=== PATIENT | male | born 1970 | race Caucasian/White ===

== ENCOUNTER 2021-06-02 01:04 | Inpatient (IN) | payer BC, SELFPAY ==
[2021-06-02] VITALS (21 sets, daily range): BP systolic 103–140; BP diastolic 47–82; PULSE 97–155; RESP 12–21; TEMP 36.3–37.3; O2SAT 94–98; BMI 44.9
--- NOTE | ~2021-06-02 | XR_ITS ---
XR chest 1V portable DATE: 06/02/2021 01:37 INDICATION: Tachycardia TECHNIQUE: Portable upright AP chest on at 0131 hours COMPARISON: 10/31/2012 two-view chest FINDINGS: No pulmonary infiltrate or consolidation, pleural effusion or pulmonary vascular congestion or pneumothorax is evident. Heart size appears within normal limits. IMPRESSION: No active disease Reviewed, dictated and finalized at location A. IMPRESSION: No active disease
--- NOTE | 2021-06-02 01:13 | ECG_ITS ---
Measurements Intervals [place] Rate: 148 P: FL: 0 QRS: -37 QRSD: 94 T: 54 QT: 254 QTc: 399 Interpretive Statements SINUS TACHYCARDIA LEFT AXIS DEVIATION POOR R WAVE PROGRESSION, ANTERIOR LEADS CONSIDER INFERIOR INFARCT, AGE INDETERMINATE BASELINE ARTIFACT- II, III, AVF, V3-V6 ABNORMAL ECG Electronically Signed On 06-02-2021 7:09:23 CDT by Brent Larsen D.O.
--- NOTE | 2021-06-02 01:25 | ED.MALEGU ---
HPI - Male Genitourinary History of Present Illness HPI Narrative: 50 yo male w/ h/o htn presents to the ED for hematuria. He reports that he has been urinating every 15 minutes. Later in the day he started seeing blood in his urine. On arrival here found be very tachycardic. No fever, chills, chest pain, abdominal pain, dysuria. Related Data Home Medications Medication Instructions Recorded Confirmed cyclobenzaprine 10 mg tablet 10 mg PO TID 09/11/19 06/02/21 meloxicam 15 mg tablet 15 mg PO DAILY 09/11/19 06/02/21 lisinopril 20 mg DAILY 06/02/21 06/02/21 Allergies Allergy/AdvReac Type Severity Reaction Status Date / Time No Known Allergies Allergy Unknown Verified 06/02/21 03:30 Review of Systems Review of Systems: All systems reviewed & are unremarkable except as noted in HPI and below Musculoskeletal: Musculoskeletal: Denies back pain PMFSH Surgical History Surgical History H/O adenoidectomy Hx of tonsillectomy Family History Family History Father Cerebrovascular accident Social History Social History Smoking status: Never smoker Second hand tobacco smoke exposure: No Alcohol intake: current Drinks per week: 3 Substance use: never Spiritual care concerns: No Exam Const: General: no acute distress and alert Orientation/consciousness: patient oriented x3 HENMT: Head: normal to inspection Neck: Neck: normal visual inspection and no lymphadenopathy Chest: Chest palpation & inspection: no tenderness Resp: Effort & Inspection: normal respiratory effort Auscultation: clear to auscultation bilaterally, no rales, no rhonchi and no wheezes Cardio: Jugular venous distension: no JVD Rate: tachycardic Rhythm: regular rhythm Heart sounds: no murmurs GI: Inspection: non-distended GI Palp: Yes Soft to palpation and No Tenderness to palpation present (GI) Skin: General skin exam: normal color Neuro: General: patient oriented x3 and moves all extremities Speech: normal speech Extrem: General: no edema Psych: Appearance: well kempt Affect: normal affect Course Vital Signs Vital signs: Vital Signs Temperature 37.3 C 06/02/21 01:07 Pulse Rate 150 H 06/02/21 01:07 Respiratory Rate 20 06/02/21 01:07 Blood Pressure 130/63 06/02/21 01:07 Pulse Oximetry 96 06/02/21 01:07 Temperature 36.3 C L 06/02/21 03:50 Pulse Rate 104 H 06/02/21 04:00 Respiratory Rate 20 06/02/21 03:50 Blood Pressure 132/61 06/02/21 03:50 Pulse Oximetry 98 06/02/21 03:50 MDM - Male Genitourinary MDM Narrative Medical decision making narrative: He meets sepsis criteria. UA consistent with infection. EKG shows sinus tachycardia. Differential Diagnosis Differential diagnosis: Likely urinary tract infection Medical Records Attestation: I reviewed the patient's medical records. Lab Data Attestation: I reviewed the patient's lab results. Result diagrams: 06/02/21 01:23 06/02/21 01:23 Labs: Lab Results 06/02/21 06/02/21 06/02/21 Range/Units 01:23 01:23 01:23 WBC 20.7 H (4.5-10.0) K/mm3 RBC 5.31 (4.6-6.20) M/mm3 Hgb 15.9 (14.0-18.0) g/dL Hct 46.1 (42.0-52.0) % MCV 86.8 (80-100) fl MCH 29.9 (26-34) pg MCHC 34.5 (32-36) g/dl RDW 12.9 (11.5-14.5) % Plt Count 226 (150-375) k/mm3 MPV 11.7 H (7.4-10.4) fl Immature Gran % (Auto) 0.5 (0-0.5) % Neut % (Auto) 83.0 H (45.5-73.1) % Lymph % (Auto) 8.6 L (18.3-44.2) % [place] % (Auto) 7.1 (2.6-8.5) % Eos % (Auto) 0.4 (0-4.4) % Baso % (Auto) 0.4 (0.2-1.2) % Lymph # (Auto) 1.77 (0.9-3.2) K/mm3 [place] # (Auto) 1.5 H (0.1-0.6) K/mm3 Eos # (Auto) 0.1 (0-0.3) K/mm3 Baso # (Auto) 0.1 (0.0-0.1) K/mm3 Abs Immat Gran (auto) 0.10 H (0.00-0.031) K/mm3
[2021-06-02 01:40] LABS: Basophils Absolute Auto 0.1 K/mm3 (0.0-0.1); Basophils Percent Auto 0.4 % (0.2-1.2); Eosinophils Absolute Auto 0.1 K/mm3 (0-0.3); Eosinophils Percent Auto 0.4 % (0-4.4); Hematocrit 46.1 % (42.0-52.0); Hemoglobin 15.9 g/dL (14.0-18.0); Immature Granulocyte Percent A 0.5 % (0-0.5); Lymphocytes Absolute Auto 1.77 K/mm3 (0.9-3.2); Lymphocytes Percent Auto 8.6 % (18.3-44.2); Mean Corpuscular HGB Conc 34.5 g/dl (32-36); Mean Corpuscular Hemoglobin 29.9 pg (26-34); Mean Corpuscular Volume 86.8 fl (80-100); Mean Platelet Volume 11.7 fl (7.4-10.4); Monocytes Absolute Auto 1.5 K/mm3 (0.1-0.6); Monocytes Percent Auto 7.1 % (2.6-8.5); Neutrophils Absolute Auto 17.2 K/mm3 (1.3-6.7); Platelet Count Result 226 k/mm3 (150-375); Red Blood Count 5.31 M/mm3 (4.6-6.20); Red Cell Distribution Width 12.9 % (11.5-14.5); White Blood Count 20.7 K/mm3 (4.5-10.0)
[2021-06-02] MEDS: SODIUM CHLORIDE 0.9% IV 1,000 ML 999 ML IV CONT ×2 (01:42→02:36)
[2021-06-02] MEDS: dilTIAZem HCl INJ 25 MG/5 ML VIAL 10 MG IV PUSH (01:42)
[2021-06-02] MEDS: ASPIRIN 81 MG CHEWABLE TABLET 324 MG PO (01:42)
[2021-06-02 01:44] LABS: Prothrombin Time 12.6 Seconds (11.1-14.7)
[2021-06-02 01:45] LABS: Partial Thromboplastin Time 24.7 SECONDS (22.3-36.8)
[2021-06-02 01:55] LABS: Lactic Acid Reflex 2.6 mmol/L (0.7-2.1)
[2021-06-02 01:56] LABS: Add Urine Microscopic? YES; Appearance Urine Cloudy (Clear); Bacteria Urine 2+ /hpf; Bilirubin Urine Negative (Negative); Blood Urine 3+ (Negative); Color Urine Yellow (Yellow); Glucose Urine UA Negative (Negative); Ketones Urine Negative (Negative); Leukocyte Esterase Ur 3+ LEU/UL (Negative); Mucus Urine Rare /lpf; Nitrate Urine Negative (Negative); Protein Urine 3+ mg/dL (Negative); RBC Urine >75 /hpf (0-2); Specific Grav Ur 1.024 (1.001-1.035); Urobilinogen Urine Negative mg/dL (<2.0); WBC Clumps Urine Present /HPF; WBC Urine >75 /hpf
[2021-06-02 02:06] LABS: Troponin I < 0.012 ng/mL (0.000-0.034)
[2021-06-02 03:56] LABS: Alanine Aminotransferase 54 U/L (4-50); Albumin Level 4.7 g/dL (3.5-5.1); Alkaline Phosphatase 65 U/L (38-126); Anion Gap 12 mmol/L (8-16); Aspartate Amino Transferase 53 U/L (17-59); Bilirubin,Total 0.6 mg/dL (0.2-1.3); Blood Urea Nitrogen 14 mg/dL (9-20); Calcium 9.9 mg/dL (8.4-10.2); Carbon Dioxide 21 mmol/L (22-30); Chloride 101 mmol/L (98-107); Estimated CRCL calculation 108 ml/min; Estimated Glomerular Filt Rate > 60; Glucose 245 mg/dL (65-110); Potassium 4.3 mmol/L (3.4-5.0); Sodium 134 mmol/L (137-145)
--- NOTE | 2021-06-02 04:31 | ADMGEN ---
This patient, Roque Grider II, was admitted to 3 Med Surg Room 328-01 at 0350. Patient/family oriented to hospital policies and general routines including ID bracelet, bed and alarms, visiting hours, pain management, procedures, bathroom and other care routines, personal items, smoking policy, room service/diet, and visiting hours. Information on how to activate the Rapid Response Team has been discussed. Patient/Family are encouraged to report perceived risks to care and to ask questions if they do not understand what they are told or what they should do.
[2021-06-02 04:41] LABS: Reflex Lactic Acid Yes or No Add Lactic
[2021-06-02] MEDS: LACTATED RINGERS 1,000 ML 125 ML IV CONT ×2 (05:11→14:42)
[2021-06-02 05:28] LABS: Lactic Acid 2.1 mmol/L (0.7-2.1)
--- OUTSIDE RECORDS SUMMARY | 2021-06-02 10:09 | XMS_ITS ---
:1970 Author Care Team Providers Name Role Phone MARY KAY HOPKINS Referring Provider [phone] Allergies Code Code System Name Reaction Severity Status Onset NKDA ? Medications Name Status Start Date Stop Date ? ? Bactroban 2 % topical cream Completed ? 03/2018 APPLY A SMALL AMOUNT TO THE AFFECTED AR EA BY TOPICAL ROUTE 3 TIMES PER DAY FOR 10 DAYS clindamycin HCl 300 mg capsule Completed ? 1 TK 1 C PO Q 6 H FOR 14 DAYS TK WITH FOOD cyclobenzaprine 10 mg tablet Active ? Not available TAKE 1 TABLET BY MOUTH THREE TIMES DAILY NEEDED cyclobenzaprine 5 mg tablet Completed ? 08/25 Take 1 tablet every day by oral route at bedtime for 30 days. hydrocodone 10 mg-acetaminophen 325 mg tablet Completed ? 10/06/2014 Take 1 tablet every 6 hours by oral route as needed for 30 days . hydrocodone 7.5 mg-acetaminophen 325 mg Completed ? 02/08/2018 tablet Keflex 500 mg capsule Completed ? 09/29/2018 Take 1 capsule every 6 hours by oral route for 7 days. ketoconazole 2 % topical cream Unknown ? N ot available lisinopril 20 mg tablet Active ? Not avai lable TAKE 1 TABLET BY MOUTH EVERY DAY lisinopril 40 mg tablet Completed ? 05/07/20 21 meloxicam 15 mg tablet Active ? Not avail able TAKE 1 TABLET BY MOUTH EVERY MORNING WITH FOOD methylprednisolone 4 mg tablets in a dose pack Completed ? 02/08/2018 FPD phentermine 15 mg capsule Completed ? 2018 TK 1
--- OUTSIDE RECORDS SUMMARY | 2021-06-02 10:09 | XMS_ITS | Encounter Summary ---
:1970 Author Care Team Providers Name Role Phone Charissa Noonan Referring Provider [phone] Reason for Visit Edema of lower extremity; Insomnia; Obes ity; Sleep disorder; Essential hypertension Patient is here for a 6 month check up. No questiosn or concerns. Assessment and Plan 1. Essential hypertension Lisinopril from 40 mg to 20 mg po daily on 05/07/21 ? CBC w/ auto diff ? lisinopril 20 mg tablet 2. Obesity Up 10 lbs. Diet and exercise e ncouraged. Need to get BMI to goal of 25-27 3. Edema of lower extremity Improved. 4. Obstructive sleep apnea syndr ome CPAP nightly. 5. Screening for malignant neopl asm of prostate ? PSA, total, serum or plasm a 6. Diabetes mellitus screening ? CMP, serum or plasma 7. Thyroid disorder screening ? TSH, ultra-sensitive, seru m 8. Hyperlipidemia screening ? lipid panel, serum Discussion Note FU in 6 mo for check up. Patient educational handouts: No information available. Plan of Care Reminders Provider Appointments Follow up on or around Osmany Noonan, 15 11/07/2021 GENERAL HARDWARE SALESPERSON Lab CBC W/ 05/07/2021 [facility] PS C Auto Diff ? CMP, 05/07/2021 [facility] Serum or Plasma
--- OUTSIDE RECORDS SUMMARY | 2021-06-02 10:10 | XMS_ITS | Encounter Summary ---
:1970 Author Care Team Providers Name Role Phone Charissa Noonan Referring Provider [phone] Reason for Visit Edema of lower extremity; [...] on or around Osmany Noonan, 15 11/07/2021 TOPOGRAPHICAL FIELD ASSISTANT Lab CBC W/ 05/07/2021 [facility] PS C Auto Diff ? CMP, 05/07/2021 [facility] Serum or Plasma
--- OUTSIDE RECORDS SUMMARY | 2021-06-02 10:10 | XMS_ITS ---
:1970 Author Care Team Providers Name Role Phone MARY KAY HOPKINS Referring Provider [phone] MARY KAY HOPKINS, BRANDAN Primary Care Provider Unavailable Allergies Code Code System Name Reaction Severity Status Onset NKDA ? Medications Name Status Start Date Stop Date ? ? Bactroban 2 % topical cream Completed ? 03/2018 APPLY A SMALL AMOUNT TO THE AFFECTED AR EA BY TOPICAL ROUTE 3 TIMES PER DAY FOR 10 DAYS clindamycin HCl 300 mg capsule Completed ? TK 1 C PO Q 6 H FOR 14 DAYS TK WITH FOOD cyclobenzaprine 10 mg tablet Active ? Not available TK 1 T PO TID PRN cyclobenzaprine 5 mg tablet Completed ? 08/25 [...] mg tablet Active ? Not avai lable lisinopril 40 mg tablet Active ? Not avai lable TK 1 T PO QD meloxicam 15 mg tablet Active ? Not avail able TK 1 T PO QAM WF methylprednisolone 4 mg tablets in a dose pack Completed ? 02/08/2018 FPD phentermine 15 mg capsule Completed ? 2018 TK 1 C PO QD
--- OUTSIDE RECORDS SUMMARY | 2021-06-02 10:10 | XMS_ITS ---
:1970 Author Care Team Providers Name Role Phone MARY KAY HOPKINS Referring Provider [phone] MARY KAY HOPKINS, BRANDAN Primary Care Provider [...]
--- OUTSIDE RECORDS SUMMARY | 2021-06-02 10:10 | XMS_ITS ---
:1970 Author Care Team Providers Name Role Phone MARY KAY HOPKINS Referring Provider [phone] Allergies Code Code System Name Reaction Severity [...]
[2021-06-02] MEDS: CYCLOBENZAPRINE HCL 10 MG TABLET PO ×2 (10:14→12:02)
[2021-06-02] MEDS: PANTOPRAZOLE 40 MG TABLET PO (10:14)
[2021-06-02] MEDS: lisinopriL 20 MG TABLET BY MOUTH (10:14)
--- NOTE | 2021-06-02 12:20 | PCRCNOTE ---
PT. DOES NOT WISH TO WEAR CPAP WHILE IN HOSPITAL.
[2021-06-02 14:58] LABS: Basophils Percent Auto 0.2 % (0.2-1.2); Eosinophils Percent Auto 0.1 % (0-4.4); Hematocrit 44.2 % (42.0-52.0); Hemoglobin 14.2 g/dL (14.0-18.0); Immature Granulocyte Absolute 0.14 K/mm3 (0.00-0.031); Immature Granulocyte Percent A 0.8 % (0-0.5); Lymphocytes Absolute Auto 1.34 K/mm3 (0.9-3.2); Lymphocytes Percent Auto 7.7 % (18.3-44.2); Mean Corpuscular HGB Conc 32.1 g/dl (32-36); Mean Corpuscular Hemoglobin 29.6 pg (26-34); Mean Corpuscular Volume 92.1 fl (80-100); Mean Platelet Volume 12.4 fl (7.4-10.4); Monocytes Absolute Auto 1.2 K/mm3 (0.1-0.6); Monocytes Percent Auto 6.7 % (2.6-8.5); Neutrophils Absolute Auto 14.7 K/mm3 (1.3-6.7); Neutrophils Percent Auto 84.5 % (45.5-73.1); Platelet Count Result 177 k/mm3 (150-375); Red Cell Distribution Width 13.5 % (11.5-14.5); White Blood Count 17.4 K/mm3 (4.5-10.0)
[2021-06-02 15:04] LABS: Anion Gap 9 mmol/L (8-16); Blood Urea Nitrogen 16 mg/dL (9-20); Calcium 9.1 mg/dL (8.4-10.2); Carbon Dioxide 16 mmol/L (22-30); Chloride 106 mmol/L (98-107); Estimated CRCL calculation 133 ml/min; Estimated Glomerular Filt Rate > 60; Glucose 230 mg/dL (65-110); Potassium 4.3 mmol/L (3.4-5.0); Sodium 131 mmol/L (137-145)
--- NOTE | 2021-06-02 15:23 | PM.IMHP ---
H&P: HPI History of Present Illness Date/Time: 06/02/21 15:23 Chief Complaint: Hematuria Narrative: Patient is a 50-year-old man with a history of arthritis, hypertension, who presented into the emergency room with sudden frequent urination and hematuria which began at 11:00 pm prior to arrival. Patient states he had just went to bed, then woke up to urinate. He then in back to bed and continued to have to urinate every 5 minutes which was concerning for him. Then he noticed his urine was more dark in color and some blood tinge. prior to this acute illness he denies any issues with his prostate, issues with urinary hesitancy, feeling like he is unable to empty his bladder, or other issues. He denied any abdominal pain, flank pain, fever, chills but came to the emergency room for further evaluation. Patient denies any history of diabetes, states his primary care provider did recent labs and called and said everything looked normal. He denies any chest pain, shortness of breath, cough, nausea, vomiting, leg swelling, calf pain, lightheadedness, dizziness, or any other symptoms at this time. CODE: Full code POA: Alisa Bennett PCP: BRANDAN Noonan Review of Systems Review of Systems: All systems reviewed & are unremarkable except as noted in HPI and below PMFSH Past Medical History Medical History Arthritis HTN (hypertension) with goal to be determined Surgical History Surgical History Hx of tonsillectomy Family History Family History Father Cerebrovascular accident Social History Social History (Updated 06/02/21 @ 15:40 by Jaleesa Thomas PA-C) Smoking status: Former smoker Second hand tobacco smoke exposure: No Smoking end date: 10/25/99 Additional smoking assessment comments: Smoked about 1PPD for 15 years Alcohol intake: current Alcohol use details: Drinks about 1-3 per week Substance use: never Living arrangements: with family Additional living arrangements comments: Lives in [place], [place] with his and children. 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 Gender identity (if verbalized by the patient): Male Spiritual care concerns: No Meds Home Medications and Allergies Home Medications Medication Instructions Recorded Confirmed Type cyclobenzaprine 10 mg tablet 10 mg PO TID 09/11/19 06/02/21 History meloxicam 15 mg tablet 15 mg PO DAILY 09/11/19 06/02/21 History lisinopril 20 mg DAILY 06/02/21 06/02/21 History Allergies Allergy/AdvReac Type Severity Reaction Status Date / Time No Known Allergies Allergy Unknown Verified 06/02/21 03:30 Vital Signs Vital Signs - 24 hr 06/02/21 01:07 06/02/21 01:18 06/02/21 01:20 Temperature 99.2 F Pulse Rate 150 H 153 H 155 H Respiratory Rate 20 21 H 18 Blood Pressure 130/63 140/82 Pulse Oximetry 96 96 96 06/02/21 01:30 06/02/21 01:32 06/02/21 01:46 Temperature Pulse Rate 150 H 148 H 133 H Respiratory Rate 12 19 17 Blood Pressure 112/78 Pulse Oximetry 95 06/02/21 02:00 06/02/21 02:04 06/02/21 02:15 Temperature Pulse Rate 119 H 121 H 119 H Respiratory Rate 19 17 20 Blood Pressure 109/61 Pulse Oximetry 95 96 06/02/21 02:31 06/02/21 03:37 06/02/21 03:50 Temperature 98.4 F 97.3 F L Pulse Rate 121 H 102 H 108 H Respiratory Rate 16 19 20 Blood Pressure 103/62 105/60 132/61 Pulse Oximetry 94 97 98 06/02/21 04:00 06/02/21 08:00 06/02/21 12:00 Temperature Pulse Rate 104 H 117 H 112 H Respiratory Rate Blood Pressure Pulse Oximetry 06/02/21 13:55 06/02/21 14:23 Temperature 97.3 F L Pulse Rate 97 Respiratory Rate 16 Blood Pressure 105/47 L Pulse Oximetry 98 98 Exam Narrative: General: 50-year-old man sit
[2021-06-02] MEDS: INSULIN ASPART (*BKC) 100 UNITS/ML SUB-Q (16:52)
[2021-06-02 17:00] LABS: Glucose Point of Care 260 mg/dl (65-105)
[2021-06-02 17:17] LABS: Hemoglobin A1C 9.1 % (<5.7)
[2021-06-03] VITALS: PULSE 96
[2021-06-03 04:00] VITALS: PULSE 109
[2021-06-03 04:33] LABS: Glucose Point of Care 261 mg/dl (65-105)
[2021-06-03 06:00] VITALS: BP 115/48; PULSE 99; RESP 18; TEMP 36.4; O2SAT 96
[2021-06-03] MEDS: ACETAMINOPHEN 500 MG TABLET 1000 MG PO (07:32)
[2021-06-03 07:36] LABS: Glucose Point of Care 208 mg/dl (65-105)
[2021-06-03] MEDS: lisinopriL 20 MG TABLET BY MOUTH (08:29)
[2021-06-03] MEDS: MELOXICAM 7.5 MG TABLET 15 MG PO (08:30)
[2021-06-03] MEDS: PANTOPRAZOLE 40 MG TABLET PO (08:30)
[2021-06-03] MEDS: INSULIN ASPART (*BKC) 100 UNITS/ML SUB-Q (08:30)
[2021-06-03 12:17] LABS: Glucose Point of Care 195 mg/dl (65-105)
--- NOTE | 2021-06-03 13:09 | PM.DS ---
DS: Admitting Diagnosis Admitting Diagnosis New onset diabetes and UTI DS: Discharge Diagnosis Discharge Diagnosis (1) Sepsis: Code(s): A41.9 - Sepsis, unspecified organism Status: Acute Assessment and Plan: Patient met criteria for sepsis on arrival with tachycardia, leukocytosis, elevated lactic acid levels in the setting of a urinary tract infection. He received IV fluid hydration, with improvement of lactic acid level now within normal range. Leukocytosis slightly improved to 17,000 thousand today, still elevated neutrophils 84%. Patient's symptoms are reported to of improved almost back to normal today and he was wanting to be discharged home. I am still concerned with his sepsis, and still has urine and blood cultures pending at this time. Will continue monitoring his vital since he is still tachycardic, repeat labs tomorrow and wait for initial culture results. Patient understands and agrees the plan all questions answered. (2) Urinary tract infection: Code(s): N39.0 - Urinary tract infection, site not specified Status: Acute Assessment and Plan: See above. (3) Newly diagnosed diabetes: Code(s): E11.9 - Type 2 diabetes mellitus without complications Status: Acute Assessment and Plan: patient's glucose on arrival was 245. He states he does follows primary care provider who said all his labs were normally he did not have diabetes. I alva a hemoglobin A1c which was 9%. He was started on diabetic diet he was told he has diabetes and educated him on diet changes, exercise, weight loss and glucose monitoring I talked his primary care provider, Dr. Diego who will follow-up with him once he is discharged in the office for further evaluation monitoring with his diabetes. We will start him on metformin once he is ready for discharge. Will need educate him on the side effects of metformin which include diarrhea. I consult clinical trial educator for further evaluation and monitoring and Education. Will also have nursing staff help him with glucose check Education. Glucose check a.c. HS. Hypoglycemic protocol in place. Sliding scale insulin in place. (4) HTN (hypertension) with goal to be determined: Code(s): I10 - Essential (primary) hypertension Status: Acute Assessment and Plan: Patient's blood pressure was 132/61 this morning. He was continued on his home blood pressure medication, Lisinopril. Make adjustments if needed. (5) Arthritis: Code(s): M19.90 - Unspecified osteoarthritis, unspecified site Status: Acute Assessment and Plan: Will continue his meloxicam and flexeril since his renal function is stable. DS: Summary Hospital Course Hospital Course: Date of service 06/03/2021 at 12:17 p.m. Patient is a 50 year old male with a past medical history of arthritis and hypertension that presented to the ED with bloody urine and frequency. It was noted that her has a probable UTI and has been treated with rochephin. It was also noted that the patient has a new onset diabetes with an A1c of 9.1. Insulin sliding scale was started and education was given to him by the providers and outpatient education and channel executive has been setup for him. He denies any further urinary dysfunction or blood. He also stated that he feels better and is ready to go home. It was explained that he would need to be started on something for his diabetes. Side effects and other education was provided. Patient denies chest pain, shortness of breath, sweats, chills, fevers, nausea, vomiting, or diarrhea. Status at Discharge Functional status at discharge: independent ambulation Overall status at disch
[2021-06-03 13:31] LABS: Basophils Absolute Auto 0.1 K/mm3 (0.0-0.1); Basophils Percent Auto 0.4 % (0.2-1.2); Eosinophils Absolute Auto 0.3 K/mm3 (0-0.3); Eosinophils Percent Auto 2.2 % (0-4.4); Hematocrit 45.3 % (42.0-52.0); Hemoglobin 15.1 g/dL (14.0-18.0); Immature Granulocyte Absolute 0.03 K/mm3 (0.00-0.031); Immature Granulocyte Percent A 0.3 % (0-0.5); Lymphocytes Absolute Auto 2.02 K/mm3 (0.9-3.2); Lymphocytes Percent Auto 17.1 % (18.3-44.2); Mean Corpuscular HGB Conc 33.3 g/dl (32-36); Mean Corpuscular Hemoglobin 29.7 pg (26-34); Mean Platelet Volume 11.3 fl (7.4-10.4); Monocytes Percent Auto 8.6 % (2.6-8.5); Neutrophils Absolute Auto 8.4 K/mm3 (1.3-6.7); Neutrophils Percent Auto 71.4 % (45.5-73.1); Platelet Count Result 163 k/mm3 (150-375); Red Blood Count 5.09 M/mm3 (4.6-6.20); Red Cell Distribution Width 13.3 % (11.5-14.5); White Blood Count 11.8 K/mm3 (4.5-10.0)
--- NOTE | 2021-06-03 13:45 | PC.NURSE ---
Outpatient referral started for initial DSMT and MNT. [facility]
[2021-06-03 14:09] LABS: Anion Gap 12 mmol/L (8-16); Blood Urea Nitrogen 15 mg/dL (9-20); Calcium 9.8 mg/dL (8.4-10.2); Carbon Dioxide 18 mmol/L (22-30); Chloride 104 mmol/L (98-107); Estimated CRCL calculation 133 ml/min; Estimated Glomerular Filt Rate > 60; Glucose 201 mg/dL (65-110); Potassium 4.2 mmol/L (3.4-5.0); Sodium 134 mmol/L (137-145)
--- OUTSIDE RECORDS SUMMARY | 2021-06-05 12:26 | XMS_ITS | Encounter Summary ---
:1970 Author Care Team Providers Name Role Phone Charissa Noonan Referring Provider [phone] Reason for Visit Edema of lower extremity; [...] available. Plan of Care Reminders Provider Appointments [facility] 06/18/2021 Spenser Salgado, Follow up 4:00PM AIR REDUCTION EQUIPMENT OPERATOR ? Follow up on or around Deondre Noonan, 15 11/07/2021 AIR REDUCTION EQUIPMENT OPERATOR Lab CBC W/ Auto 05/07/2021 [facility] Diff ?
--- OUTSIDE RECORDS SUMMARY | 2021-06-05 12:26 | XMS_ITS ---
:1970 Author Care Team Providers Name Role Phone MARY KAY HOPKINS Referring Provider [phone] Allergies Code Code System Name Reaction Severity [...]
--- OUTSIDE RECORDS SUMMARY | 2021-06-05 12:27 | XMS_ITS ---
:1970 Author Care Team Providers Name Role Phone MARY KAY HOPKINS Referring Provider [phone] MARY KAY HOPKINS, BRANDAN Primary Care Provider [...]
== END 2021-06-03 14:45 | disposition home or self-care (01) | DRG 872 ==
LOC: ANHED 01:26 → ANH3MEDSUR 03:39
PROVIDERS: Nurse Practitioner; Admitting Provider Internal Medicine; Emergency Provider Emergency Medicine; PCP Nurse Practitioner Family; Visit Provider Physician Assistant
DX: A41.9 Sepsis, unspecified organism (principal); N39.0 Urinary tract infection, site not specified; E11.9 Type 2 diabetes mellitus without complications; I10 Essential (primary) hypertension; M19.90 Unspecified osteoarthritis, unspecified site; Z79.899 Other long term (current) drug therapy; Z87.891 Personal history of nicotine dependence
CPT/HCPCS: 36415; 71045; 80048; 80053; 81001; 82948; 83036; 83605; 84484; 85025; 85610; 85730; 87040; 87077; 87086; 87088; 87186; 93005; 96361; 96365; 96375; 99285; A9270; G0378; J0131; J0696; J1815; J7030; J7120

== ENCOUNTER 2021-06-25 13:56 | Outpatient (RCR) | payer BC, SELFPAY ==
[2021-06-25 14:06] VITALS: BMI 42.3
[2021-06-25 14:11] VITALS: BMI 42.3
== END 2021-09-15 14:50 | disposition home or self-care (01) ==
LOC: ANHDMC 13:56
PROVIDERS: PCP Nurse Practitioner Family; Visit Provider Nurse Practitioner Family
DX: E11.65 Type 2 diabetes mellitus with hyperglycemia (principal); E66.9 Obesity, unspecified; Z71.3 Dietary counseling and surveillance
CPT/HCPCS: 97802

== ENCOUNTER 2023-11-29 11:22 | Observation (INO) | payer OTHER, MEDICAID, SELFPAY ==
[2023-11-29] VITALS (56 sets, daily range): BP systolic 79–138; BP diastolic 35–92; PULSE 127–157; RESP 11–24; TEMP 36.3–36.6; O2SAT 93–99; BMI 43.2
--- NOTE | ~2023-11-29 | CT_ITS ---
EXAMINATION: CTA chest PE protocol DATE: 11/29/2023 12:57 INDICATION: Tachycardia and dyspnea TECHNIQUE: Computed tomography angiography (CTA) of the chest was performed with 100 mL Omnipaque-350 intravenous contrast timed to evaluate the pulmonary arteries. Coronal maximum intensity projection 3D-reconstructions were created by the technologist. Automated exposure control and iterative reconst ruction technique were employed. Exam dose: 979.37 mGy-cm total exam DLP. COMPARISON: 04/14/2006 FINDINGS: There is adequate contrast opacification of the pulmonary arteries which demonstrates no pulmonary em bolism. Mild emphysema. Mosaic attenuation in the dependent lungs consistent with atelectasis and sma ll subsegmental regions of more lucent air trapping. Calcified left upper lobe nodules and small calc ified left hilar and mediastinal lymph nodes consistent with old granulomatous disease. No smooth sep inall line thickening to suggest pulmonary edema. No pleural effusion or pneumothorax. Heart size is no rmal. No pericardial effusion. Thoracic aorta is normal in caliber with no dissection. No pathologica lly enlarged thoracic lymphadenopathy. Few scattered hepatic steatosis. Mild to moderate thoracic spo ndylosis. IMPRESSION: 1. No pulmonary embolism. 2. Mild emphysema. 3. Diffuse hepatic steatosis. Reviewed, dictated and finalized at [facility]. Reviewed, dictated and finalized at location B. E TENDER
--- NOTE | ~2023-11-29 | XR_ITS ---
EXAMINATION: XR chest 1V portable DATE: 11/29/2023 13:17 INDICATION: Tachycardia. TECHNIQUE: A single frontal view of the chest was obtained. COMPARISON: Chest single view 06/02/2021, chest CT 11/29/2023 FINDINGS: There is mild atelectasis in lingula. No pleural effusion or pneumothorax. The heart size i s normal. IMPRESSION: 1. Mild atelectasis in lingula. Reviewed, dictated and finalized at location E. HBOARD INSERTER
--- NOTE | 2023-11-29 11:25 | ECG_ITS ---
Measurements Intervals [place] Rate: 144 P: 254 [place]: 145 QRS: -43 QRSD: 86 T: 43 QT: 264 QTc: 409 Interpretive Statements ATRIAL FLUTTER WITH RAPID VENTRICULAR RESPONSE MARKED LEFT AXIS DEVIATION [QRS AXIS < -30] POOR R-WAVE PROGRESSION ABNORMAL ECG COMPARED TO ECG 06/02/2021 01:17:44 ATRIAL FLUTTER REPLACES SINUS RHYTHM Electronically Signed On 11-29-2023 16:56:16 SEISMIC INTERPRETER by Bhupinder Clifton M.D.
[2023-11-29] MEDS: METOPROLOL TARTRATE INJ 5 MG/5 ML VIAL IV PUSH ×2 (11:47→12:07)
[2023-11-29 11:53] LABS: Basophils Absolute Auto 0.1 K/mm3 (0.0-0.1); Eosinophils Absolute Auto 0.3 K/mm3 (0-0.3); Eosinophils Percent Auto 2.9 % (0-4.4); Hematocrit 49.2 % (42.0-52.0); Hemoglobin 16.4 g/dL (14.0-18.0); Immature Granulocyte Absolute 0.03 K/mm3 (0.00-0.031); Immature Granulocyte Percent A 0.3 % (0-0.5); Lymphocytes Absolute Auto 3.28 K/mm3 (0.9-3.2); Lymphocytes Percent Auto 31.4 % (18.3-44.2); Mean Corpuscular HGB Conc 33.3 g/dl (32-36); Mean Corpuscular Hemoglobin 30.3 pg (26-34); Mean Corpuscular Volume 90.9 fl (80-100); Mean Platelet Volume 11.4 fl (7.4-10.4); Monocytes Absolute Auto 0.9 K/mm3 (0.1-0.6); Monocytes Percent Auto 8.8 % (2.6-8.5); Neutrophils Absolute Auto 5.8 K/mm3 (1.3-6.7); Neutrophils Percent Auto 55.6 % (45.5-73.1); Platelet Count Result 223 k/mm3 (150-375); Red Blood Count 5.41 M/mm3 (4.6-6.20); Red Cell Distribution Width 13.2 % (11.5-14.5); White Blood Count 10.5 K/mm3 (4.5-10.0)
--- NOTE | 2023-11-29 12:01 | ECG_ITS ---
Measurements Intervals [place] Rate: 127 P: [place]: 0 QRS: -35 QRSD: 93 T: 26 QT: 266 QTc: 388 Interpretive Statements ATRIAL FLUTTER/WITH RAPID VENTRICULAR RESPONSE LEFT AXIS DEVIATION POOR R-WAVE PROGRESSION ABNORMAL ECG COMPARED TO ECG 11/29/2023 11:34:29 NO DIFFERENCE Electronically Signed On 11-29-2023 16:58:01 SPARERIBS TRIMMER by Bhupinder Clifton M.D.
--- NOTE | 2023-11-29 12:05 | ED.GENADULT ---
HPI - General Adult General Chief complaint: Arrhythmia/Palpitations Stated complaint: IRREGULAR HEART RATE,PALPATATIONS Time Seen by Provider: 11/29/23 11:40 History of Present Illness HPI narrative: 53 old male presenting to the emergency department for evaluation of intermittent tachycardia this been going on for the last 3 weeks. Patient states he has had increased stressed because of loss of his job. Patient denies any associated chest pain or shortness of breath. Patient states when his heart rate does increase he does have associated lightheaded and dizziness. Patient denies any falls or injuries. Patient does take medications for high blood pressure. Related Data Home Medications Medication Instructions Recorded Confirmed cyclobenzaprine 10 mg tablet 10 mg PO TID 09/11/19 11/29/23 meloxicam 15 mg tablet 15 mg PO DAILY 09/11/19 11/29/23 lisinopril 20 mg tablet 20 mg DAILY 06/02/21 11/29/23 Allergies Allergy/AdvReac Type Severity Reaction Status Date / Time No Known Allergies Allergy Unknown Verified 11/29/23 11:53 Review of Systems Review of Systems: All systems reviewed & are unremarkable except as noted in HPI and below PMFSH Past Medical History Medical History Arthritis HTN (hypertension) with goal to be determined Surgical History Surgical History Hx of tonsillectomy Family History Family History Father Cerebrovascular accident Social History Social History Smoking status: Former smoker Second hand tobacco smoke exposure: No Smoking end date: 10/25/99 Additional smoking assessment comments: Smoked about 1PPD for 15 years Alcohol intake: current Drinks per week: 3 Alcohol use details: Drinks about 1-3 per week Substance use: never Substance use type: does not use Do You Feel Safe in your Home?: Yes Lack of Transportation: No Lack of Food: Never True Current Housing: I Have Housing Concerned About Future Housing: No Difficulty Paying Gas/Electric Bills: No Difficulty Paying for Meds: No Currently Unemployed: YES Education: High School Diploma/GED Difficulty w/ Childcare or Family Care: No Living arrangements: with family Additional living arrangements comments: Lives in [place], [place] with his and children. 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 HEAD: normocephalic, atraumatic. EYES: PERRLA/EOMI, conjunctivae clear. NOSE: Normal no drainage EARS:TMS clear with good light reflex. THROAT: Pharynx clear, no exudate. NECK: Supple. No adenopathy, no masses. RESPIRATORY: Airway patent, respirations nonlabored. Clear to auscultation bilaterally, no rales, rhonchi, wheezing. CARDIOVASCULAR: Tachycardia ABDOMINAL: Soft, nontender, nondistended, normal bowel sounds MUSCULOSKELETAL: Moves all extremities. Strength/ROM intact, No edema, No calf tenderness. NEURO: Alert. Cranial nerves II through XII intact. Good gait. Good coordination SKIN: Warm, dry. Normal Color Course Course Emergency Course: 53-year-old male presents to the emergency department for evaluation intermittent tachycardia. Patient is afebrile but does have a heart rate of 130 upon arrival to the ED. patient did have anxiety regarding getting the line placed and patient's heart rate did increase to 230. Patient was treated with IV metoprolol and this did help to control the patient's rate. Patient was started on Cardizem drip and this did lower his pressure but did not have significant effect the patient's right. Cardiology was consulte
[2023-11-29 12:06] LABS: Alanine Aminotransferase 53 U/L (6-50); Albumin Level 4.7 g/dL (3.5-5.1); Alkaline Phosphatase 40 U/L (38-126); Anion Gap 12 mmol/L (8-16); Aspartate Amino Transferase 61 U/L (17-59); Bilirubin,Total 0.7 mg/dL (0.2-1.3); Blood Urea Nitrogen 23 mg/dL (9-20); Calcium 9.9 mg/dL (8.4-10.2); Carbon Dioxide 19 mmol/L (22-30); Chloride 102 mmol/L (98-107); Estimated CRCL calculation 101 ml/min; Estimated Glomerular Filt Rate > 60; Glucose 197 mg/dL (65-110); Lipase 143 U/L (23-300); Potassium 4.7 mmol/L (3.4-5.0); Prothrombin Time 13.4 Seconds (11.1-14.7); Sodium 133 mmol/L (137-145)
[2023-11-29 12:07] LABS: Partial Thromboplastin Time 27.1 SECONDS (22.3-36.8)
[2023-11-29] MEDS: dilTIAZem HCl INJ 25 MG/5 ML VIAL 10 MG IV PUSH (12:13)
[2023-11-29] MEDS: dilTIAZem 100 MG/100 ML 100 MG/100 ML BAG IV CONT ×2 (12:17→18:53)
[2023-11-29 12:18] LABS: Troponin I < 0.012 ng/mL (0.000-0.034)
[2023-11-29 12:21] LABS: NT Pro B Type Natriuretic Pept 96 pg/mL (19.9-100)
--- NOTE | 2023-11-29 14:05 | PM.IMHP ---
H&P: HPI History of Present Illness Date/Time: 11/29/23 14:05 Chief Complaint: Palpitation Narrative: 53 old male with history of hypertension, diabetes on metformin, anxiety, present ED with a chief complaint of palpitation. Patient has been having intermittent palpitation in past 3 weeks, and patient had palpitation again today associated with lightheadedness. Patient denied focal weakness, vision change, fall, chest pain, shortness breast, cough, fever or chills. Patient states he has stress recently because loss of his job. Patient came to ED for evaluation, in the ED, patient was found have irregular irregular rhythm, heart rate did increase to 230. Patient denies history of AFib. patient was afebrile, no O2 desaturation, blood pressure stable, tachycardia, left showed mild leukocytosis 10,500, elevated BUN creatinine ratio 23/1, troponin negative, EKG showed AFib RVR mild atelectasis in the lingula. Patient received Cardizem drip in the ED, heart rate is better controlled. ER physician consulted the tap and die maker technician. CTA showed no pulmonary embolism, diffuse hepatic steatosis, we admit patient for further evaluation and treatment Review of Systems Review of Systems: ROS negative except above PMFSH Past Medical History Medical History Arthritis HTN (hypertension) with goal to be determined Surgical History Surgical History Hx of tonsillectomy Family History Family History Father Cerebrovascular accident Social History Social History Smoking status: Former smoker Second hand tobacco smoke exposure: No Smoking end date: 10/25/99 Additional smoking assessment comments: Smoked about 1PPD for 15 years Alcohol intake: current Drinks per week: 3 Alcohol use details: Drinks about 1-3 per week Substance use: never Substance use type: does not use Do You Feel Safe in your Home?: Yes Lack of Transportation: No Lack of Food: Never True Current Housing: I Have Housing Concerned About Future Housing: No Difficulty Paying Gas/Electric Bills: No Difficulty Paying for Meds: No Currently Unemployed: YES Education: High School Diploma/GED Difficulty w/ Childcare or Family Care: No Living arrangements: with family Additional living arrangements comments: Lives in [place], [place] with his and children. 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 Gender identity (if verbalized by the patient): Male Spiritual care concerns: No Meds Home Medications and Allergies Home Medications Medication Instructions Recorded Confirmed Type cyclobenzaprine 10 mg tablet 10 mg PO TID 09/11/19 11/29/23 History meloxicam 15 mg tablet 15 mg PO DAILY 09/11/19 11/29/23 History lisinopril 20 mg tablet 20 mg DAILY 06/02/21 11/29/23 History metformin 500 mg tablet 500 mg PO BID #60 tabs 06/03/21 11/29/23 Rx Allergies Allergy/AdvReac Type Severity Reaction Status Date / Time No Known Allergies Allergy Unknown Verified 11/29/23 11:53 Vital Signs Vital Signs - 24 hr 11/29/23 11:33 11/29/23 11:36 11/29/23 11:47 Temperature 97.6 F Pulse Rate 130 H 145 H 132 H Respiratory Rate 18 Blood Pressure 127/84 Pulse Oximetry 97 11/29/23 12:07 11/29/23 12:14 11/29/23 12:17 Temperature Pulse Rate 128 H 130 H 130 H Respiratory Rate Blood Pressure 117/76 103/78 Pulse Oximetry 11/29/23 11:37 11/29/23 11:38 11/29/23 11:45 Temperature Pulse Rate 149 H 128 H 157 H Respiratory Rate 20 15 13 Blood Pressure 138/90 Pulse Oximetry 95 11/29/23 11:50 11/29/23 11:51 11/29/23 12:00 Temperature Pulse Rate 132 H 131 H 130 H Respiratory Rate 12 16 17 Blood Pressure 105/83 Pulse Oxim
[2023-11-29] MEDS: METOPROLOL TARTRATE TAB 25 MG, METOPROLOL TARTRATE TAB 12.5 MG 37.5 MG PO (14:38)
[2023-11-29 15:14] LABS: Troponin I < 0.012 ng/mL (0.000-0.034)
[2023-11-29 16:56] LABS: Influenza A QL RT-PCR Negative (Negative); Influenza B QL RT-PCR Negative (Negative); RSV RNA, RT-PCR Negative (Negative); SARS-CoV-2 RNA PCR Negative (Negative)
[2023-11-29 17:02] LABS: Glucose Point of Care 199 mg/dl (65-105)
--- NOTE | 2023-11-29 17:51 | ADMGEN ---
This patient, Roque Grider II, was admitted to IMU Room 206-01. Patient/family oriented to hospital policies and general routines including ID bracelet, bed and alarms, visiting hours, pain management, procedures, bathroom and other care routines, personal items, smoking policy, room service/diet, and visiting hours. Information on how to activate the Rapid Response Team has been discussed. Patient/Family are encouraged to report perceived risks to care and to ask questions if they do not understand what they are told or what they should do.
[2023-11-29 17:52] LABS: Troponin I 0.016 ng/mL (0.000-0.034)
[2023-11-29 19:02] LABS: Amphetamine Screen Urine Negative (Negative); Barbiturate Screen Urine Negative (Negative); Benzodiazepines Screen Urine Negative (Negative); Cannabinoid Screen Urine Negative (Negative); Cocaine Screen Urine Negative (Negative); Methadone Screen Urine Negative (Negative); Opiate Screen Urine Negative (Negative); Phencyclidine Screen Urine Negative (Negative)
[2023-11-29 19:54] LABS: Glucose Point of Care 207 mg/dl (65-105)
[2023-11-29] MEDS: METOPROLOL TARTRATE 25 MG TABLET PO (20:36)
[2023-11-29] MEDS: APIXABAN 5 MG TABLET PO (20:36)
[2023-11-29] MEDS: ALPRAZolam (*CRX) 0.5 MG TABLET PO (20:36)
[2023-11-30] VITALS (23 sets, daily range): BP systolic 94–119; BP diastolic 47–94; PULSE 71–143; RESP 16–20; TEMP 36.4–36.6; O2SAT 94–98
[2023-11-30] MEDS: METOPROLOL TARTRATE 25 MG TABLET PO ×3 (05:16→21:25)
[2023-11-30] MEDS: ACETAMINOPHEN 325 MG TABLET 650 MG PO (06:12)
[2023-11-30] MEDS: dilTIAZem 100 MG/100 ML 100 MG/100 ML BAG IV CONT (06:14)
[2023-11-30 08:35] LABS: Glucose Point of Care 188 mg/dl (65-105)
[2023-11-30] MEDS: APIXABAN 5 MG TABLET PO ×2 (08:53→21:25)
[2023-11-30] MEDS: PERFLUTREN LIPID MICROSPHERES 1.5 ML VIAL DILUTED TO 10 ML TOTAL VOLUME IV PUSH (10:00)
--- NOTE | 2023-11-30 10:57 | PM.CNCAR ---
Assessment and Plan Assessment and plan (1) Atrial flutter with rapid ventricular response: Code(s): I48.92 - Unspecified atrial flutter Status: Acute Assessment and Plan: New diagonsis of atrial flutter. Discussed pathophysiology of atrial flutter, management/treatment strategies, etc. Recommend JONATHAN-guided DCCV as patient remains in RVR. Discussed procedure details with the patient, including procedure steps, risks vs benefits, post-procedure care, alternative management strategies, etc. Patient agreeable. Will schedule JONATHAN-guided DCCV, will request Anesthesiology team for sedation given his morbid obesity with BMI of 43 and known LUIS. Given [id number] of 2 for hypertension and diabetes, will need long-term anticoagulation. Discussed with patient and he is agreeable. Continue Eliquis 5mg BID. Transthoracic echocardiogram pending. Continue beta terrie. Stopping Diltazem as it is not really providing any meaningful rate control. Will refer to Electrophysiology as an outpatient for long-term management. (2) HTN (hypertension) with goal to be determined: Code(s): I10 - Essential (primary) hypertension Status: Acute Assessment and Plan: Stable. Lisinopril on hold as blood pressures are currently normotensive with Diltiazem and Metoprolol. Stopping Diltazem as it is not really providing any meaningful rate control. (3) LUIS (obstructive sleep apnea): Code(s): G47.33 - Obstructive sleep apnea (adult) (pediatric) Status: Acute Assessment and Plan: Continue nightly CPAP therapy. Patient reports being compliant with CPAP at home. Follows with Pulmonary as outpatient. (4) Diabetes mellitus: Code(s): E11.9 - Type 2 diabetes mellitus without complications Status: Acute Assessment and Plan: Uncontrolled. Management as per primary team. History of Present Illness History of Present Illness Consult date/time: 11/30/23 10:57 Requesting physician: Daniel Gaytan MD Consult reason: Other (Atrial flutter) Reason For Visit: Afib/ A Flutter Narrative: We are consulted for atrial flutter with RVR. This is a 53 year old male with hypertension, diabetes, LUIS on CPAP who presented with lightheadedness and dizziness. Has not really noticed any palpitations but has noticed his heart rate being high at home. He reports being quite stressed recently because of losing his job. Patient found to be in atrial flutter with RVR, which is a new diagnosis for him. Started on Diltiazem drip and PO Metoprolol, however, remains in atrial flutter with RVR this morning upon my evaluation. He states he is feeling well this morning. Denies any chest pain, palpitations, shortness of breath, lightheadedness/dizziness. Started on PO Eliquis. Review of Systems Review of Systems: All systems reviewed & are unremarkable except as noted in HPI and below (HPI) [facility] Past Medical History Medical History Arthritis HTN (hypertension) with goal to be determined Surgical History Surgical History Hx of tonsillectomy Family History Family History Father Cerebrovascular accident Social History Social History Smoking status: Former smoker Second hand tobacco smoke exposure: No Smoking end date: 10/25/99 Additional smoking assessment comments: Smoked about 1PPD for 15 years Alcohol intake: current Drinks per week: 3 Alcohol use details: Drinks about 1-3 per week Substance use: never Substance use type: does not use Do You Feel Safe in your Home?: Yes Lack of Transportation: No Lack of Food: Never True Current Housing: I Have Housing Concerned About Future Housing: No Difficulty Paying Gas/Electric Bills: No Difficulty Paying for Meds: No Currently Unemployed:
[2023-11-30 11:54] LABS: Glucose Point of Care 214 mg/dl (65-105)
--- NOTE | 2023-11-30 12:13 | IVDEFINITY ---
Prior to administration of IV Definity the patient was educated on the risks and benefits of the imaging enhancing agent including potential adverse side effects. The patient verbalized understanding. Allergies were verified. No exclusion criteria were identified and at least one of the following inclusion criteria were met: 1) physician request, 2) patient technically difficult to image (per the [place] [employer]chocardi[employer] guidelines of two or more segments not discernable within the apical view), or 3) questionable left ventricular function. ?
[2023-11-30] MEDS: INSULIN ASPART (*BKC) 100 UNITS/ML SUB-Q ×2 (12:28→17:00)
[2023-11-30] MEDS: busPIRone HCL 5 MG TABLET PO ×2 (12:57→23:45)
--- NOTE | 2023-11-30 14:14 | ECHO_ITS ---
Patient Info Name: Roque Grider Age: 53 years : 1970 Gender: Male Ht: 69 in Wt: 290 lbs BSA: 2.59 m? BP: 119 / 90 mmHg HR: 130 bpm Heart Rhythm: Tachycardia Exam Date: 11/30/2023 9:29 AM Admit Date: 11/29/2023 Exam Location: Echo Lab Patient Status: Outpatient Exam Type: CA echo doppler color flow Technical Quality: Fair Spraying Machine Operator: Faviola Leiva RDCS Ordering Physician: Tawana Diallo MD Attending Provider: Tawana Diallo MD Study Info Indications Code Description dizziness Procedure(s) Complete two-dimensional, color flow and Doppler transthoracic echocardiogram is performed with contrast to opacify the left ventricle and to improve the deliniation of the left ventricle endocardial borders. Contrast/Agitated Saline Contrast/Ag. Saline Amount Administered By Existing IV Access IV Access Condition New IV Access Site Condition Summary 1. Left ventricular chamber dimension is normal. 2. Left ventricular systolic function is moderately reduced, estimated at 30- 35%. However, patient is quite tachycardic at the time of this study. 3. There is mildly increased left ventricular wall thickness. 4. The left ventricular diastolic function is grade I diastolic dysfunction. 5. Right ventricular systolic function is normal. 6. There is trace mitral valve regurgitation. 7. There is trace tricuspid valve regurgitation. Recommendations Patient will need reassessment of LVEF once he is no longer tachycardic. Left Ventricle Left ventricular chamber dimension is normal. Left ventricular systolic function is moderately reduced, estimated at 30-35%. However, patient is quite tachycardic at the time of this study. There is mildly increased left ventricular wall thickness. The left ventricular diastolic function is grade I diastolic dysfunction. Right Ventricle Right ventricular chamber dimension is normal. Right ventricular systolic function is normal. Left Atria Left atrial chamber dimension is normal. Right Atria Right atrial chamber dimension is normal. Atrial Septum Intact interatrial septum visualized by color flow imaging. Aortic Valve The aortic valve is probable trileaflet. There is no aortic valve stenosis. There is no aortic valve regurgitation. Mitral Valve There is trace mitral valve regurgitation. Tricuspid Valve There is trace tricuspid valve regurgitation. Pulmonic Valve The pulmonic valve is not well visualized. Aorta The aortic root size at the sinus of Valsalva is normal. Inferior Vena Cava Definity 3.00 ml Crochrell, Faviola RDCS Yes patent with no signs of infiltration Inferior vena cava is not well visualized. Pericardium/Pleural There is no pericardial effusion. Ventricles Name Value Normal Name Value Normal LV Dimensions 2D/MM IVS Diastolic Thickness (2D) 1.4 cm 0.6-1.0 LVOT Diameter 2.1 cm LVID Diastole (2D) 4.3 cm 4.2-5.8 LV Mass (2D Cubed) 227.05 g 88.00-224.00 LVIW Diastolic Thickness (2D) 1.4 cm 0.6-1.0 LV Mass Index (2D Cubed) 88 g/m? 49-115 LVID Systole (2D) 2.8 cm 2.5-4.0 Relative Wall Thickness (2D) 0.66 LV Fractional Shortening/Ejection Fraction 2D/MM LV Fractional Shortening (2D) 34 % 25-43 LV Diastolic Volume Index (BP MOD) 16 ml/m? 34-74 LV EF (2D Teicholz) 63 % 52-72 LV Systolic Volume (BP MOD) 15 ml 21-61 LV Diastolic Volume (4C MOD) 49 ml LV Systolic Volume Index (BP MOD) 6 ml/m? 11- 31 LV EF (4C MOD) 60 % LV EF (BP MOD) 64 % 52-72 LV Diastolic Volume (2C MOD) 31 ml LV Diastolic Length (4C) 7.7 cm LV EF (2C MOD) 71 % LV Systolic Length (4C) 7.1 cm LV Diastolic Volume (BP MOD) 41 ml 62-150 LV Stroke Volume (4C MOD) 29 ml Atria Name Value Normal Name Value Normal LA Dimensions LA Volume (4C A-L) 77 ml LA Volume (BP A-L) 60 ml RA Dim
--- NOTE | 2023-11-30 16:21 | PM.IMPN ---
Progress Note: A&P Assessment and Plan (1) Obesity: Code(s): E66.9 - Obesity, unspecified Status: Acute (2) Newly diagnosed diabetes: Code(s): E11.9 - Type 2 diabetes mellitus without complications Status: Deleted (3) HTN (hypertension) with goal to be determined: Code(s): I10 - Essential (primary) hypertension Status: Acute (4) LUIS (obstructive sleep apnea): Code(s): G47.33 - Obstructive sleep apnea (adult) (pediatric) Status: Acute (5) Hepatic steatosis: Code(s): K76.0 - Fatty (change of) liver, not elsewhere classified Status: Acute (6) Anxiety: Code(s): F41.9 - Anxiety disorder, unspecified Status: Acute Plan 53 old male with history of paroxysmal AFib, hypertension, diabetes on metformin, anxiety, present ED with a chief complaint of palpitation. Patient has been having intermittent palpitation in past 3 weeks, and patient had palpitation again today associated with lightheadedness. Patient came to ED for evaluation, in the ED, patient was found have irregular irregular rhythm, heart rate did increase to 230.labs showed mild leukocytosis 10,500, elevated BUN creatinine ratio 23/1, troponin negative, EKG showed AFib RVR mild atelectasis in the lingula. Patient received Cardizem drip in the ED, heart rate is better controlled. CTA showed no pulmonary embolism, diffuse hepatic steatosis, we admit patient for further evaluation and treatment New onset aFib, RVR History of AFib, not on blood thinner or or medications for rate control or and arrhythmia Patient has hypertension, diabetes,CHADS score above 2 Patient received Cardizem drip ED, will continue the Cardizem mg, rate is controlled, Follow TSH wnl, echocardiogram, drug screening negative , Start Eliquis 5 mg b.i.d. p.o. cardiology on board, for DCCV tomorrow cardiomyopathy ECHO ef 30-35% may need cardiac cath cardiology on board Essential hypertension Patient is on Cardizem drip, blood pressure on the lower side, Hold lisinopril p.o. Hepatic steatosis Moderate high liver enzymes, Refer patient to GI outpatient follow-up Uncontrolled type 2 diabetes Hold metformin during hospitalization Start insulin sliding scale a.c. q.h.s. Anxiety Busporone bid, stop benzo DVT prophylaxis on Eliquis Subjective Date/time seen: 11/30/23 16:21 Review of Systems Review of Systems: ROS negative except above Exam Narrative: GENERAL: Pleasant, in no acute distress. Well-nourished. - EYES: EOMI. Anicteric. - HENT: Moist mucous membranes. - LUNGS: Clear to auscultation bilaterally, no wheezing, rhonchi, or rales. - CARDIOVASCULAR: Irregular irregular rhythm, tachycardia, no murmur. No JVD. - ABDOMEN: Soft, non-tender and non-distended. No palpable masses. - EXTREMITIES: No edema. Peripheral pulses 2+. Non-tender. - NEUROLOGIC: No focal neurological deficits. CN II-XII grossly intact. - PSYCHIATRIC: Awake, Alert and oriented x 3. Appropriate mood and affect. - SKIN: No rashes or lesions. Warm. - LYMPH: No cervical lymphadenopathy. Objective Data Vital Signs Vital Signs: Vital Signs - 24 hr 11/29/23 18:00 11/29/23 19:25 11/29/23 20:36 Temperature 97.5 F L Pulse Rate 135 H 136 H 130 H Respiratory Rate 20 Blood Pressure 108/78 Pulse Oximetry 93 Oxygen Delivery 11/29/23 20:00 11/29/23 20:00 11/29/23 21:47 Temperature Pulse Rate 135 H 135 H 128 H Respiratory Rate 20 Blood Pressure Pulse Oximetry 93 Oxygen Delivery Room Air 11/29/23 21:32 11/29/23 23:15 11/30/23 00:00 Temperature 97.9 F Pulse Rate 133 H 121 H Respiratory Rate 18 Blood Pressure 93/60 L Pulse Oximetry 96 Oxygen Delivery Autopap 11/30/23 00:00 11/30/23 02:00 11/30/23 03:26 Temperature Pulse Rate 121 H 124 H 128 H Respiratory Rate 18 Blood Pressure Pulse Oximetry 96 Oxygen Delivery Autopap 11/30/23 03:26 11/30/23 0
[2023-11-30 16:53] LABS: Glucose Point of Care 254 mg/dl (65-105)
[2023-11-30 20:36] LABS: Glucose Point of Care 179 mg/dl (65-105)
--- NOTE | 2023-11-30 21:43 | ECG_ITS ---
Measurements Intervals [place] Rate: 75 P: 44 DC: 177 QRS: -35 QRSD: 101 T: 20 QT: 342 QTc: 382 Interpretive Statements SINUS RHYTHM INFERIOR MYOCARDIAL INFARCTION [40+ ms Q WAVE AND/OR ST/T ABNORMALITY IN II/aVF], PROBABLY OLD COMPARED TO ECG 11/29/2023 12:08:24 SINUS RHYTHM NOW PRESENT Electronically Signed On 12-01-2023 15:09:17 DISPLAY DEPARTMENT MANAGER by Pat Diego M.D.
[2023-12-01] VITALS (14 sets, daily range): BP systolic 98–133; BP diastolic 65–74; PULSE 54–82; RESP 18–20; TEMP 36.4–36.6; O2SAT 95–99
[2023-12-01 05:30] LABS: Basophils Absolute Auto 0.1 K/mm3 (0.0-0.1); Eosinophils Absolute Auto 0.3 K/mm3 (0-0.3); Eosinophils Percent Auto 3.7 % (0-4.4); Hematocrit 47.2 % (42.0-52.0); Hemoglobin 15.2 g/dL (14.0-18.0); Immature Granulocyte Absolute 0.02 K/mm3 (0.00-0.031); Immature Granulocyte Percent A 0.2 % (0-0.5); Lymphocytes Absolute Auto 3.12 K/mm3 (0.9-3.2); Lymphocytes Percent Auto 37.6 % (18.3-44.2); Mean Corpuscular HGB Conc 32.2 g/dl (32-36); Mean Corpuscular Hemoglobin 29.9 pg (26-34); Mean Corpuscular Volume 92.7 fl (80-100); Mean Platelet Volume 11.9 fl (7.4-10.4); Monocytes Percent Auto 12.5 % (2.6-8.5); Neutrophils Absolute Auto 3.7 K/mm3 (1.3-6.7); Platelet Count Result 190 k/mm3 (150-375); Red Blood Count 5.09 M/mm3 (4.6-6.20); Red Cell Distribution Width 13.2 % (11.5-14.5); White Blood Count 8.3 K/mm3 (4.5-10.0)
[2023-12-01 05:51] LABS: Alanine Aminotransferase 51 U/L (6-50); Albumin Level 4.1 g/dL (3.5-5.1); Alkaline Phosphatase 43 U/L (38-126); Anion Gap 6 mmol/L (8-16); Aspartate Amino Transferase 49 U/L (17-59); Bilirubin,Total 0.8 mg/dL (0.2-1.3); Blood Urea Nitrogen 19 mg/dL (9-20); Calcium 8.8 mg/dL (8.4-10.2); Carbon Dioxide 23 mmol/L (22-30); Chloride 105 mmol/L (98-107); Estimated CRCL calculation 123 ml/min; Estimated Glomerular Filt Rate > 60; Glucose 164 mg/dL (65-110); Magnesium 2.4 mg/dL (1.6-2.3); Sodium 134 mmol/L (137-145)
[2023-12-01 06:06] LABS: Potassium 4.3 mmol/L (3.4-5.0)
[2023-12-01 08:00] LABS: Glucose Point of Care 152 mg/dl (65-105)
--- NOTE | 2023-12-01 08:58 | PM.PNCARD ---
Progress Note: A&P Assessment and Plan (1) Atrial flutter with rapid ventricular response: Code(s): I48.92 - Unspecified atrial flutter Status: Acute Assessment and Plan: Was scheduled for JONATHAN-guided DCCV today, however, he converted to sinus rhythm last night around 9:30 PM and has maintained sinus rhythm. Given [id number] of 2 for hypertension and diabetes, will need long-term anticoagulation. Discussed with patient and he is agreeable. Continue Eliquis 5mg BID. Transthoracic echocardiogram shows moderately reduced LVEF, however, patient was quite tachycardic when this study was done, so the LVEF estimation might not be accurate. Will plan to repeat echocardiogram as an outpatient in 6 weeks for reassessment on LVEF. Continue beta terrie. Switched to Toprol. Will have patient wear an event monitor upon discharge to evaluate burden of AF. Will refer to Electrophysiology as an outpatient for long-term management. (2) Diabetes mellitus: Code(s): E11.9 - Type 2 diabetes mellitus without complications Status: Acute Assessment and Plan: Uncontrolled. Management as per primary team. (3) HTN (hypertension) with goal to be determined: Code(s): I10 - Essential (primary) hypertension Status: Acute Assessment and Plan: Stable. Lisinopril on hold as blood pressures are currently normotensive with Metoprolol. (4) LUIS (obstructive sleep apnea): Code(s): G47.33 - Obstructive sleep apnea (adult) (pediatric) Status: Acute Assessment and Plan: Continue nightly CPAP therapy. Patient reports being compliant with CPAP at home. Follows with Pulmonary as outpatient. Plan Okay to discharge home from a cardiac standpoint. Order for event monitor placed. Will arrange outpatient follow up in our clinic. Subjective Date/time seen: 12/01/23 08:58 Interval history: Reason for consult: Atrial flutter with RVR HPI: We are consulted for atrial flutter with RVR. This is a 53 year old male with hypertension, diabetes, LUIS on CPAP who presented with lightheadedness and dizziness. Has not really noticed any palpitations but has noticed his heart rate being high at home. He reports being quite stressed recently because of losing his job. Patient found to be in atrial flutter with RVR, which is a new diagnosis for him. Started on Diltiazem drip and PO Metoprolol, however, remains in atrial flutter with RVR this morning upon my evaluation. He states he is feeling well this morning. Denies any chest pain, palpitations, shortness of breath, lightheadedness/dizziness. Started on PO Eliquis. Date of service 12/01: Was scheduled for JONATHAN-guided DCCV today, however, he converted to sinus rhythm last night around 9:30 PM and has maintained sinus rhythm. He is feeling well this morning. Review of Systems Review of Systems: All systems reviewed & are unremarkable except as noted in HPI and below (HPI) Exam Const: General: comfortable and no acute distress HENMT: Mouth: Yes moist mucous membranes Eyes: General: appearance normal, both eyes and all related structures Sclera: sclerae normal Resp: Effort & Inspection: normal respiratory effort Cardio: Rate: regular rate Rhythm: regular rhythm Skin: General skin exam: normal color Neuro: Speech: normal speech Psych: Mental Status: mental status grossly normal Affect: normal affect Objective Data Vital Signs Vital Signs: Vital Signs - 24 hr 11/30/23 11:34 11/30/23 14:24 11/30/23 10:00 Temperature 36.6 C Pulse Rate 143 H 131 H 137 H Respiratory Rate 16 Blood Pressure 117/79 Pulse Oximetry 96 Oxygen Delivery 11/30/23 12:00 11/30/23 14:00 11/30/23 12:00 Temperature Pulse Rate 141 H 143 H 133 H Respiratory Rate Blood Pressure Pulse Oximetry Oxygen Delivery Room Air 11/30/23 10:10 11/30/23 16:00 11/30/23 16:00 Temperature 36.5 C Pulse Rate 142 H 140 H Respiratory Rate 20 Bl
[2023-12-01] MEDS: METOPROLOL SUCCINATE EXT REL 100 MG TABCR PO (09:16)
[2023-12-01] MEDS: APIXABAN 5 MG TABLET PO (09:21)
[2023-12-01 11:52] LABS: Glucose Point of Care 138 mg/dl (65-105)
--- NOTE | 2023-12-01 14:12 | PM.DS ---
DS: Admitting Diagnosis Discharge Date 12/01/23 Admitting Diagnosis Afib RVR DS: Discharge Diagnosis Discharge Diagnosis (1) Atrial flutter with rapid ventricular response: Code(s): I48.92 - Unspecified atrial flutter Status: Acute (2) New onset atrial flutter: Code(s): I48.92 - Unspecified atrial flutter Status: Acute DS: Summary Hospital Course Hospital Course: 53 old male with history of? hypertension, diabetes on metformin, anxiety, present ED with a chief complaint of palpitation.? Patient has been having intermittent palpitation in past 3 weeks, and patient had palpitation again today associated with lightheadedness.? Patient denied focal weakness, vision change, fall, chest pain, shortness breast, cough, fever or chills.? Patient states he has stress recently because loss of his job.? Patient came to ED for evaluation, in the ED, patient was found have irregular irregular rhythm, heart rate did increase to 230.? Patient denies history of AFib.? patient was afebrile, no O2 desaturation, blood pressure stable, tachycardia, left showed mild leukocytosis 10,500, elevated BUN creatinine ratio 23/1, troponin negative, EKG showed AFib RVR mild atelectasis in the lingula.? Patient received Cardizem drip in the ED, heart rate is better controlled.? ER physician consulted the benefits technician.? CTA showed no pulmonary embolism, diffuse hepatic steatosis,? we admit patient for further evaluation and treatment Patinet self-converted to NSR, ECHO showed 30-35% but cardiology reckons it may be due to tachycardia at the time of exam. Patient started on Metoprolol Succinate 100mg daily per cards, thus Lisinopril held intil f/u with cardiology. Also discharged on Eliquis as [id number] score 2. continue other home meds F/u with PCP in 3-5 days, f/u with cardiology as instructed. Time Spent with Patient Time attestation: Total time spent providing and/or coordinating discharge services: DS: Data Data Completed and Pending Labs on day of discharge: Labs from last 24 hours 12/01/23 12/01/23 12/01/23 11:25 07:47 04:54 WBC 8.3 RBC 5.09 Hgb 15.2 Hct 47.2 MCV 92.7 MCH 29.9 MCHC 32.2 RDW 13.2 Plt Count 190 MPV 11.9 H Immature Gran % (Auto) 0.2 Neut % (Auto) 45.0 L Lymph % (Auto) 37.6 Dickenson % (Auto) 12.5 H Eos % (Auto) 3.7 Baso % (Auto) 1.0 Lymph # (Auto) 3.12 Dickenson # (Auto) 1.0 H Eos # (Auto) 0.3 Baso # (Auto) 0.1 Abs Immat Gran (auto) 0.02 Absolute Neuts (auto) 3.7 Absolute Nucleated RBC 0.0 Nucleated RBC % 0.0 Sodium 134 L Potassium 4.3 Chloride 105 Carbon Dioxide 23 Anion Gap 6 L BUN 19 Creatinine 0.80 Estim Creat Clear Calc 123 Estimated GFR > 60 Glucose 164 H POC Capillary Glucose 138 H 152 H Calcium 8.8 Magnesium 2.4 H Total Bilirubin 0.8 AST 49 ALT 51 H Alkaline Phosphatase 43 Total Protein 7.0 Albumin 4.1 11/30/23 11/30/23 20:31 16:46 WBC RBC Hgb Hct MCV MCH MCHC RDW Plt Count MPV Immature Gran % (Auto) Neut % (Auto) Lymph % (Auto) Dickenson % (Auto) Eos % (Auto) Baso % (Auto) Lymph # (Auto) Dickenson # (Auto) Eos # (Auto) Baso # (Auto) Abs Immat Gran (auto) Absolute Neuts (auto) Absolute Nucleated RBC Nucleated RBC % Sodium Potassium Chloride Carbon Dioxide Anion Gap BUN Creatinine Estim Creat Clear Calc Estimated GFR Glucose POC Capillary Glucose 179 H 254 H Calcium Magnesium Total Bilirubin AST ALT Alkaline Phosphatase Total Protein Albumin Discharge Plan Discharge Attending physician on discharge: Marina Brower Consulting providers: Tory Barry Discharging Clinician: Marina Brower Anticipated Discharge Date/Time: 12/01/23 14:08 Patient Disposition: Home, Self-Care Activity: as tolerated Diet: as tolerated Discharge Ins
== END 2023-12-01 14:50 | disposition home or self-care (01) ==
LOC: ANHED 12:06 → ANHIMU 15:24
PROVIDERS: Internal Medicine; Admitting Provider Hospitalist; Emergency Provider Emergency Medicine; PCP Nurse Practitioner Family; Visit Provider Internal Medicine
DX: I48.92 Unspecified atrial flutter (principal); I11.9 Hypertensive heart disease without heart failure; G47.33 Obstructive sleep apnea (adult) (pediatric); D72.829 Elevated white blood cell count, unspecified; J98.11 Atelectasis; J43.9 Emphysema, unspecified; K76.0 Fatty (change of) liver, not elsewhere classified; F41.9 Anxiety disorder, unspecified; Z68.41 Body mass index [BMI] 40.0-44.9, adult; E66.9 Obesity, unspecified; R94.31 Abnormal electrocardiogram [ECG] [EKG]; M19.90 Unspecified osteoarthritis, unspecified site; F10.90 Alcohol use, unspecified, uncomplicated; Z87.891 Personal history of nicotine dependence; Z79.84 Long term (current) use of oral hypoglycemic drugs; Z79.899 Other long term (current) drug therapy
CPT/HCPCS: 36415; 71045; 71275; 80053; 80307; 82948; 83690; 83735; 83880; 84443; 84484; 85025; 85610; 85730; 87637; 93005; 93306; 96365; 96366; 96374; 96375; 99285; A9270; G0378; G0379; J1815; Q9957; Q9967

== ENCOUNTER 2024-04-25 15:58 | Outpatient (CLI) | payer OTHER, SELFPAY ==
--- NOTE | 2024-04-25 16:12 | ECHO_ITS ---
Patient Info Name: Roque Grider Age: 53 years : 1970 Gender: Male Ht: 69 in Wt: 299 lbs BSA: 2.64 m2 HR: 70 bpm BP: 117 / 79 mmHg Technical Quality: Fair Exam Date: 04/25/2024 4:19 PM Exam Location: [facility] Patient Status: Outpatient Admit Date: 04/25/2024 Staff Ordering Physician: Brent Larsen DO Software Support Engineer: Zhen Mcintyre RDCS Attending Provider: Brent Larsen DO Referring Physician: Chava ZHAO; Exam Type: CA echo doppler color flow Study Info Indications I51.9 - Heart disease, unspecified Complete two-dimensional, color flow and Doppler transthoracic echocardiogram is performed. Summary 1. Complete two-dimensional, color flow and Doppler transthoracic echocardiogram is performed. 2. Left ventricular chamber dimension is normal. 3. Left ventricular systolic function is normal, estimated at 60-65%. 4. The left ventricular diastolic function is normal. 5. E/e' 7 is not elevated. 6. Left atrial chamber dimension is mildly enlarged. 7. There is trace tricuspid valve regurgitation. 8. No pulmonary hypertension, estimated pulmonary arterial systolic pressure is 24 mmHg. Left Ventricle E/e' 7 is not elevated. Left ventricular chamber dimension is normal. Left ventricular systolic function is normal, estimated at 60-65%. The left ventricular diastolic function is normal. Right Ventricle Right ventricular systolic function is normal and with normal TAPSE 2.3 cm. Right ventricular chamber dimension is normal. Left Atria Left atrial chamber dimension is mildly enlarged. Right Atria Right atrial chamber dimension is normal. Aortic Valve The aortic valve is trileaflet. There is no aortic valve stenosis. There is no aortic valve regurgitation. Pulmonic Valve There is no pulmonic regurgitation. Mitral Valve There is no mitral valve stenosis. There is no mitral valve regurgitation. Tricuspid Valve There is trace tricuspid valve regurgitation. No pulmonary hypertension, estimated pulmonary arterial systolic pressure is 24 mmHg. Pericardium/Pleural There is no pericardial effusion. Inferior Vena Cava Normal inferior vena cava with >50% collapse upon inspiration consistent with normal right atrial pressure, 5 mmHg. Aorta The aortic root size at the sinus of Valsalva is normal. Left Ventricular Outflow Tract Name Value Normal LVOT 2D LVOT Diameter 2.1 cm LVOT Doppler LVOT Peak Gradient 4 mmHg LVOT Mean Gradient 2 mmHg LVOT VTI 21 cm LVOT VTI/AV VTI Ratio 0.8 LVOT Stroke Volume 72 ml LVOT CO 4.6 l/min LVOT CI 1.7 l/min/m2 Pulmonic Valve Name Value Normal RVOT Doppler RVOT Peak Gradient 3 mmHg PV Doppler PV P
== END 2024-04-25 15:59 | disposition home or self-care (01) ==
LOC: ANHCARD 16:07
PROVIDERS: PCP Nurse Practitioner Family; Visit Provider Internal Medicine Cardiovascular Disease
DX: I51.9 Heart disease, unspecified (principal)
CPT/HCPCS: 93306; C8929

== ENCOUNTER 2025-03-29 09:15 | Outpatient (CLI) | payer OTHER, SELFPAY ==
--- NOTE | ~2025-03-29 | NM_ITS ---
EXAMINATION: NM amber stress w perfusion DATE: 03/29/2025 12:12 INDICATION: Paroxysmal atrial fibrillation TECHNIQUE: Rest images were obtained following intravenous administration of 9.0 mCi Tc99m tetrofosmi n (Myoview). The patient was infused intravenously with Lexiscan (Regadenoson). Then, 29.0 mCi Tc99m tetrofosmin (Myoview) was administered intravenously, and stress images were obtained. Data was recon structed into short axis and horizontal and vertical long axis SPECT images. Gated SPECT images were also obtained. COMPARISON: None. FINDINGS: There is no definite reversible or fixed perfusion abnormality to suggest ischemia or infar ction. There is normal left ventricular chamber size. Mild global hypokinesis with borderline left v entricular ejection fraction measuring 49%. IMPRESSION: 1. Normal myocardial perfusion at rest and during stress. 2. Borderline left ventricular ejection fraction measuring 49%. Reviewed, dictated and finalized at location A.
--- NOTE | 2025-03-29 09:26 | EST_ITS ---
Patient Info Name: Roque Grider Age: 54 years : 1970 Gender: Male Ht: 69 in Wt: 300 lbs BSA: 2.64 m2 Exam Date: 03/29/2025 9:26 AM Patient Status: O Admit Date: 03/29/2025 Exam Type: CA stress amber w NM A regadenoson stress test was performed. Staff Referring Physician: Brent Larsen DO Attending Provider: Brent Larsen DO Exercise Technologist: Katrina Kerns Exercise Physician: Brent Larsen DO Summary 1. 1. Negative lexiscan stress test for ischemic ST changes by ECG criteria. 2. 2. Relative hypotensive response to lexiscan. 3. 3. Nuclear scan to follow and will be reported separately. Please correlate with it. 4. 4. Patient informed of the above results. Protocol: Lexiscan Stress ECG Details Stage: REST Duration (min): 1 min : 9 sec HR (bpm): 99 SBP (mmHg): 156 DBP (mmHg): 76 Stage: REST Duration (min): 8 min : 35 sec HR (bpm): 96 SBP (mmHg): 156 DBP (mmHg): 76 Stage: STAGE 1 Duration (min): 0 min : 59 sec HR (bpm): 125 SBP (mmHg): 83 DBP (mmHg): 46 Stage: RECOVERY Duration (min): 1 min : 0 sec HR (bpm): 103 SBP (mmHg): 95 DBP (mmHg): 52 Stage: RECOVERY Duration (min): 2 min : 0 sec HR (bpm): 110 SBP (mmHg): 95 DBP (mmHg): 52 Stage: RECOVERY Duration (min): 3 min : 0 sec HR (bpm): 101 SBP (mmHg): 95 DBP (mmHg): 52 Stage: RECOVERY Duration (min): 3 min : 50 sec HR (bpm): 90 SBP (mmHg): 105 DBP (mmHg): 62 Rest HR: 96 bpm Peak HR: 125 bpm Rest Sys BP: 156 mmHg Peak Sys BP: 105 mmHg Max Pred HR: 165 bpm % Max Pred HR: 76 % Target HR: 140 bpm Max RPP: 13,125 bpm*mmHg Termination Reason: Completed protocol Cardiac Symptoms: Shortness of breath Total Time: 1 min : 0 sec Rest Gill BP: 76 mmHg Peak Gill BP: 62 mmHg Total Dose: 0.4 mg Resting ECG Atrial fibrillation. Stress ECG No ST changes. Arrhythmias None. Report Signatures
--- OUTSIDE RECORDS SUMMARY | 2025-03-29 09:55 | XMS_ITS | Data Portability ---
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 Plan of Treatment Reminders Order Date Submit Date Provider Last Modified By Organization Details Last Modified Time Details Appointments None recorded. Lab HbA1c (hemoglobin A1c), blood 2022 023 [email or web address] [facility], [address], [address], [place], [address], 3 15:56:19 CMP, serum or plasma 2022 023 [email or web address] [facility], [address], [address], [place], [address], 3 15:56:28 lipid panel, serum 2022 023 [email or web address] [facility], [address], [address], [place], [address], 3 15:56:28 Referral emt referral - thickened nails. DM, HTN, and pain in left foot. discolored skin. Please call patient to schedule appointment . 2023 024 [email or web address] Shen Smith Jr DPM, [address], [address], [place], [address], 4 16:38:20 Procedures None recorded. Surgeries None recorded. Imaging None recorded. Medication Orders metformin 1,000 mg tablet 2023 024 [id number], [address], [place], [id number], 4 15:59:14 Farxiga 10 mg tablet 2023 024 [facility] #46436, [address], [place], [id number], 4 15:59:12 lisinopril 20 mg tablet 2023 024 [facility] #55352, [address], [place], [id number], 4 15:59:13 Contour Next Test Strips 2022 023 [facility] [address] [place], [address], 3 18:08:38 Patient TargetsNo targets recorded. Patient Instructions Encounter Date Encounter Id Patient Instructions Last Modified By Organization Details Last Modified Time 02/02/2023 [id number] 3 mo fu dm, lipid, weight Not available 02/02/2023 18:12:19 11/05/2023 [id number] 11/05/23 pt aware of dominique departure. Labs with new provider. FU in 1-3 mo. 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 DM, HTN, and pain in left foot. discolored skin. Please call patient to schedule appointment. Referring Physician: Mary Kay Hopkins, Family Medicine, Encounter Date: 11/05/2023 Results Created Date Observation Date Name Description Value Unit Range Abnormal Flag Note LastModifiedBy Organization Detail LastModifiedTime Result Notes None recorded. Problems Name Problem SNOMED Code Status Onset Date Resolution Date Notes Provider Name and Address Organization Details Recorded Time Edema of lower extremity 041487083 Active Not Available [facility] 3 08:09:59 Open wound 918804037 Active Not Available [facility] 3 08:09:59 Contusion 842561249 Active Not Available [facility] 3 08:09:59 Dermal mycosis 27627748 Active Not Available [facility] 3 08:09:59 Dry skin 38502965 Active Not Available [facility] 3 08:09:59 On examinatio n - skin tags Active Not Available [facility] 3 08:09:59 Insomnia 322403726 Active Not Available [facility] 3 08:10:00 Pain of joint of ankle 851984184 Active Not Available [facility] 3 08:10:00 Benign prostatic hyperplasi a 087346933 Active 2020 Not Available [facility] 3 08:10:00 Shoulder joint pain 913536837 Active Not Available [facility] 3 08:10:00 Pruritic disorder 004497720 Active Not Available [facility] 3 08:10:00 Tachycardi a 4846270 Active 2017 Not Available [facility] 3 08:10:00 Elevated blood-pres sure reading without diagnosis of hypertensi on 736857004 Completed 201706/13/2019 Not Available [facility] 3 08:10:00 Sleep disorder 75071665 Active Not Available [facility] 3 08:10:00 Multiple skin tags 492685202 Active Not Available [facility] 3 08:10:00 Obesity 938060556 Active Not Available [facility] 3 08:10:00 Onychomyco sis 956478170 Active 2017 Not Available [facility] 3 08:10:00 Type 2 diabetes mellitus 27246965 Active 2020 9.1 a1c in ER 05/2021 Not Available [facility] 3 08:10:00 Sprain of ankle 05939604 Active Not Available [facility] 3 08:10:01 Essential hypertensi on 21916030 Active 2017 Not Available [facility] 3 08:10:01 Muscle pain 86384191 Active Not Available [facility] 3 08:10:01 Local infection of wound 93567122 Active Not Available [facility] 3 08:10:01 Obstructiv e sleep apnea syndrome 96001667 Active 2020 Not Available [facility] 3 08:10:01 Uncontroll ed type 2 diabetes mellitus 956361552 Active 2022 Mary Kay Hopkins NP [address], [address], [place], [address] , [facility] 3 11:55:54 Hyperlipid emia 33222203 Active 2022 Mary Kay Hopkins NP [address], [address], [place], [address] , [facility] 3 18:09:16 Problem Notes None recorded. Procedures Surgical History Date Name Laterality Status Provider Name and Address Organization Details Recorded Time 0 colonoscopy completed Not Available [facility] 12/24/19 23 08:06:46 Imaging Results None recorded. Procedure Notes None recorded. Medical Equipment None Reported. Allergies No known drug allergies Medications Name Sig Start Date Stop Date Status Note LastModified by Organization Details LastModified Time cyclobenzap rine 10 mg tablet TAKE 1 TABLET BY MOUTH THREE TIMES DAILY NEEDED active Not Available Not Available No t Available metformin 500 mg tablet TAKE 1 TABLET BY MOUTH TWICE DAILY 11/05 completed Not Available Not Available Not Available clindamycin HCl 300 mg capsule TK 1 C PO Q 6 H FOR 14 DAYS TK WITH FOOD 10/23 completed Not Available Not Available Not Available Keflex 500 mg capsule Take 1 capsule every 6 hours by oral route for 7 days. 09/29 completed Not Available Not Available Not Available meloxicam 15 mg tablet TAKE 1 TABLET BY MOUTH EVERY DAY 11/05 completed Not Available Not Available Not Available lisinopril 20 mg tablet TAKE 1 TABLET BY MOUTH EVERY DAY active Not Available Not Available No t Available phentermine 15 mg capsule Take 1 capsule every day by oral route. active Not Available Not Available No t Available phentermine 37.5 mg tablet TK 1 T PO D active Not Available Not Available No t Available ciprofloxac in 500 mg tablet TAKE 1 TABLET BY MOUTH EVERY 12 HOURS FOR 7 DAYS 06/18 completed Not Available Not Available Not Available Tamiflu 75 mg capsule active Not Available Not Available N ot Available sulfamethox azole 800 mg-trimetho prim 160 mg tablet Take 1 tablet every 12 hours by oral route with meals for 15 days. active Not Available Not Available No t Available hydrocodone 10 mg-acetamin ophen 325 mg tablet Take 1 tablet every 6 hours by oral route as needed for 30 days. 10/06 completed Not Available Not Available Not Available tramadol 50 mg tablet Take 1 tablet(s) TID by oral route. Not while driving. active Not Available Not Available No t Available triamcinolo ne acetonide 0.1 % topical cream APPLY A THIN LAYER TO THE AFFECTED AREA(S) BY TOPICAL ROUTE 2 TIMES PER DAY for 5-7 days 09/29 completed Not Available Not Available Not Available Bactroban 2 % topical cream APPLY A SMALL AMOUNT TO THE AFFECTED AREA BY TOPICAL ROUTE 3 TIMES PER DAY FOR 10 DAYS 09/29 completed Not Available Not Available Not Available tamsulosin 0.4 mg capsule TAKE 1 CAPSULE BY MOUTH EVERY NIGHT AT BEDTIME active Not Available Not Available No t Available hydrocodone 7.5 mg-acetamin ophen 325 mg tablet 02/08 completed Not Available Not Available Not Available metformin 1,000 mg tablet TAKE 1 TABLET BY MOUTH TWICE DAILY active Not Available Not Available No t Available lisinopril 10 mg tablet Take 1 tablet every day by oral route. active Not Available Not Available No t Available lisinopril 5 mg tablet Take 1 tablet every day by oral route. 11/03 completed Not Available Not Available Not Available zolpidem 10 mg tablet TK 1 T PO QHS 08/02 completed Not Available Not Available Not Available methylpredn isolone 4 mg tablets in a dose pack FPD 02/08 completed Not Available Not Available Not Available ketoconazol e 2 % topical cream APPLY AA TOPICALLY ONCE D active Not Available Not Available No t Available lisinopril 40 mg tablet TAKE 1 TABLET BY MOUTH EVERY DAY (Last fill, needs appt 04/01/21) active Not Available Not Available No t Available cyclobenzap rine 5 mg tablet Take 1 tablet every day by oral route at bedtime for 30 days. active Not Available Not Available No t Available Contour Next Test Strips Take 1 strip every day by miscell. route. 2022 active Not Available Not Available Not Avai lable Farxiga 10 mg tablet Take 1 tablet every day by oral route. 2023 active Not Available Not Available Not Avai lable OneTouch Delica Plus Lancet 33 gauge USE TO TEST FASTING GLUCOSE DAILY active Not Available Not Available No t Available Vitals Date Recorded Body mass index (BMI) Body height Oxygen saturation Oxygen saturation in Arterial blood by Pulse oximetry Heart rate Respiratory rate Body temperature Body weight Systolic blood pressure Diastolic blood pressure Systolic blood pressure Diastolic blood pressure Provider Name and Address Organization Details Last Updated DateTime 3 44.4 kg/m2 175.26 cm 93 % 93 % 92 /min 16 /min 98.6 [degF] 251042. 94 g 171 mm[Hg] 103 mm[Hg] 146 mm[Hg] 82 mm[Hg] Not Available [facility] 3 08:08:53 Date Recorded Body height Body mass index (BMI) Body weight Body temperature Heart rate Oxygen saturation Oxygen saturation in Arterial blood by Pulse oximetry Respiratory rate Systolic blood pressure Diastolic blood pressure Provider Name and Address Organization Details Last Updated DateTime 4 175.26 cm 43.1 kg/m2 933180. 67 g 96.8 [degF] 80 /min 93 % 93 % 24 /min 136 mm[Hg] 76 mm[Hg] Mary Kay Kilpatrick RN [facility] 4 15:39:51 Date Recorded Body height Body mass index (BMI) Body weight Body temperature Heart rate Respiratory rate Oxygen saturation Oxygen saturation in Arterial blood by Pulse oximetry Systolic blood pressure Diastolic blood pressure Provider Name and Address Organization Details Last Updated DateTime 3 175.26 cm 44.2 kg/m2 914045. 27 g 97.6 [degF] 92 /min 20 /min 97 % 97 % 124 mm[Hg] 78 mm[Hg] Mary Kay Kilpatrick RN [facility] 3 17:49:35 Date Recorded Body height Body mass index (BMI) Body weight Body temperature Heart rate Respiratory rate Oxygen saturation Oxygen saturation in Arterial blood by Pulse oximetry Systolic blood pressure Diastolic blood pressure Provider Name and Address Organization Details Last Updated DateTime 3 175.26 cm 44 kg/m2 360000. 23 g 95.2 [degF] 92 /min 20 /min 97 % 97 % 134 mm[Hg] 86 mm[Hg] Mary Kay Kilpatrick RN [place] [facility] [employer] 3 17:50:48 Date Recorded Body mass index (BMI) Body height Oxygen saturation Oxygen saturation in Arterial blood by Pulse oximetry Heart rate Body temperature Body weight Systolic blood pressure Diastolic blood pressure Provider Name and Address Organization Details Last Updated DateTime 2 44 kg/m2 175.26 cm 94 % 94 % 90 /min 98.6 [degF] 715457. 53 g 142 mm[Hg] 88 mm[Hg] Not Available [facility] 3 08:08:53 Social History Question Answer Notes LastModified by Organization Details LastModified Time Tobacco Smoking Status Former Smoker Not Available [facility] 12/23/2022 08:06:35 Do You Have An Advance Directive? No [id number].[id number] Information not available 12/23/2022 Is Blood Transfusion Acceptable In An Emergency? Yes Information not available 02/02/2023 What Is Your Level Of Caffeine Consumption? Moderate [id number].0301 [id number] Information not available 12/23/2022 What Is Your Code Status? Full Code [id number] Information not available 12/23/2022 In The 14 Days Before Symptom Onset, Have You Had Close Contact With A Laboratory-confi rmed COVID-19 While That Case Was Ill? No MIGRATION.0301 [id number] Information not available 12/23/2022 In The 14 Days Before Symptom Onset, Have You Had Close Contact With A Person Who Is Under Investigation For COVID-19 While That Person Was Ill? No MIGRATION.0301 [id number] Information not available 12/23/2022 What Type Of Diet Are You Following? DIABETIC MIGRATION.0301 [id number] Information not available 12/23/2022 How Many Days Of Moderate To Strenuous Exercise, Like A Brisk Walk, Did You Do In The Last 7 Days? 20 Information not available 02/02/2023 Have There Been Any Changes To Your Family Or Social Situation? No MIGRATION.0301 026225 Information not available 12/23/2022 When Did You Quit Smoking? 15+yearssincelphilip pike Quit In 1999 MIGRATION.0301 [id number] Information not available 12/23/2022 Are There Any Guns Present In Your Home? Yes MIGRATION.0301 [id number] Information not available 12/23/2022 Do You Use Insect Repellent Routinely? Yes MIGRATION.0301 [id number] Information not available 12/23/2022 Where Do You Live? [place]House MIGRATION.0301 [id number] Information not available 12/23/2022 Do You Have A Medical Power Of Drilling Foreman? No MIGRATION.0301 [id number] Information not available 12/23/2022 How Many Children Do You Have? 2 Information not available 02/02/2023 Do You Have Any Pets? No MIGRATION.0301 018771 Information not available 12/23/2022 What Is Your Relationship Status? MIGRATION.0301 070532 Information not available 12/23/2022 Do You Use Your Seat Belt Or Car Seat Routinely? Yes Information not available 02/02/2023 Do You Have Smoke And Carbon Monoxide Detectors In Your Home? Yes MIGRATION.0301 [id number] Information not available 12/23/2022 Are There Any Smokers In Your House? No MIGRATION.0301 [id number] Information not available 12/23/2022 Do You Participate In Social Media? No Information not available 02/02/2023 What Types Of Sporting Activities Do You Participate In? Walking Information not available 02/02/2023 Do You Use Sunscreen Routinely? Yes MIGRATION.0301 [id number] Information not available 12/23/2022 Have You Recently Traveled Abroad? No MIGRATION.0301 109543 Information not available 12/23/2022 Sex: Male Functional Status Question Answer Note LastModified by Organizat ion Details LastModified Time Do you use any illicit or recreational drugs? No MIGRATION.[id number] Information not available 12/23/2022 What is your level of alcohol consumption? Occasional MIGRATION.[id number] Information not available 12/23/2022 Are you currently employed? 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 Occasional MIGRATION.[id number] Information not available 12/23/2022 Mental Status Question Answer Note LastModified by Organizat ion Details LastModified Time Do you feel stressed (tense, restless, nervous, or anxious, or unable to sleep at night)? [id number] Information not available 12/23/2022 Family History Relationship Description Onset Age of this Age Resolved Age Notes LastModified by Organization Details LastModified Time Father Cerebrovascu lar accident [id number] Not available 12/23/2022 08:06:48 Medical History Condition Response BLINDNESS N RHEUMATIC FEVER N KIDNEY STONES N BLADDER PROBLEMS N MRSA N OTHER # 1 N POLIO N LUNG DISEASE/DISORDER N HISTORY OF DRUG ABUSE N RADIATION / CHEMOTHERAPY N COPD N Other # 2 N BLOOD DISEASES N SURGERY N EAR OR HEARING PROBLEMS N MUMPS N SHINGLES N BOWEL PROBLEMS N FEMALE PROBLEMS / INFECTIONS N DEPRESSION (INCLUDING POST ) N STROKE/TIA N THYROID DISEASE N ULCERS N BENIGN PROSTATIC HYPERPLASIA N MEASLES N CERVICALGIA N HYPOTENSION N TB SKIN TEST N MYOCARDIAL INFARCTION N PARAPELGIA N OBESITY N GERD/NAUSEA N ANEURYSM N URINARY/BLADDER/KIDNEY PROBLEMS N CORONARY ARTERY DISEASE (CAD) N MENIERE'S DISEASE N ADDICTION CONCERNS N ENDOMETRIOSIS N USE OF BLOOD THINNERS N SKIN PROBLEMS N EMPHYSEMA N GASTROINTESTINAL DISORDER N MUSCLE,JOINT OR BONE PROBLEMS N GASTROINTESTINAL BLEEDING N BLOOD CLOTS N ASTHMA N CATARACTS N ERECTILE DYSFUNCTION N GI PROBLEMS N CHF N Low Testosterone N NEUROPATHY N INFERTILITY N AIDS/HIV N FRACTURES N CHEMOTHERAPY / RADIATION N VISION/EYE PROBLEMS N LIVER DISEASE N MALE HYPOGONADISM N HYPERTENSION N TOURETTE'S N ANXIETY DISORDER N BLOOD TRANSFUSION N ANEMIA/BLOOD DISORDER N CHRONIC EAR INFECTIONS N BRONCHITIS N TUBERCULOSIS N GLAUCOMA N FOOT PROBLEM N DIVERTICULITIS N CHICKENPOX N SLEEP APNEA N ALLERGIES/HAYFEVER N INFECTIOUS DISEASE N HEART ARRHYTHMIA N PROSTATE N INSOMNIA N HIGH CHOLESTEROL / HYPERLIPIDEMIA N HYPERTHYROIDISM N EYE PROBLEMS N EATING DISORDER N EDEMA N CHRONIC PAIN SYNDROME N CONSTIPATION N CAROTID BLOCKAGE N BACK / NECK PROBLEMS N HAVE YOU BEEN HOSPITALIZED OR SEEN IN [facility] IN THE PAST YEAR ? N ATHEROSCLEROSIS N BREAST PROBLEMS N DIALYSIS N ECZEMA N FIBROMYALGIA N OSTEOPOROSIS N ARTHRITIS N NO SIGNIFICANT PAST MEDICAL HISTORY N APPENDICITIS N DIABETES, TYPE Y BAD TEETH N HEARTBURN / REFLUX N ADD/ADHD N AUTISM SPECTRUM DISORDER (ASD) N HEPATITIS / LIVER DISEASE N PULMONARY DISEASE N GOUT N SLEEP DISORDER N ALZHEIMER'S DISEASE N PAIN N HERPES N DEMENTIA N HEADACHES/MIGRAINES N SEIZURES/EPILEPSY N VASCULAR DISEASE N PACEMAKER N DIZZINESS N HEART DISEASE/HEART PROBLEMS N KIDNEY DISEASE N DEVELOPMENTAL OR BEHAVIORAL DISORDERS N MULTIPLE SCLEROSIS N SCARLET FEVER N MENTAL DISORDER/ILLNESS N CARDIAC ARRHYTHMIA N CANCER: SPECIFY N PNEUMONIA N ATRIAL FIBRILLATION N Gall Stones N PULMONARY EMBOLISM N AUTOIMMUNE DISEASE N Immunizations Vaccine Type Date Status Note Provider Nam e and Address Organization Details Recorded Time Tdap 08/27/2021 completed Not Available [facility] 12/23/2022 08:14:08 Past Encounters Encounter ID Performer Location Encounter Start Date Encounter Closed Date Diagnosis/Indication Diagnosis SNOMED-CT Code Diagnosis ICD10 Code Diagnosis Note [id number] Ky Diego MD [address] [address] 05/07/2021 00:00:00 05/07/2021 16:50:11 [id number] Ky Diego MD [address] [address] 06/18/2021 00:00:00 06/18/2021 17:50:00 [id number] Ky Diego MD [address] [address] 08/27/2021 00:00:00 08/27/2021 17:53:22 [id number] Ky Diego MD [address] [address] 09/17/2021 00:00:00 09/17/2021 12:41:51 [id number] Ky Diego MD [address] [address] 01/14/2022 00:00:00 01/14/2022 18:13:17 [id number] Ky Diego MD [address] [address] 04/23/2022 00:00:00 04/23/2022 17:49:38 [id number] Mary Kay Hopkins NP [address] [address] 07/28/2022 00:00:00 07/28/2022 18:09:39 [id number] Ky Diego MD [address] [address] 11/03/2022 00:00:00 11/03/2022 18:12:37 [id number] Mary Kay Hopkins NP [address] [address] 02/02/2023 17:40:38 02/02/2023 18:13:32 Obesity 347014254 E66.9 Low fat diet. Get to exercising on routine basis again. Essential hypertension 86175911 I10 Lisinopril 20 mg po daily. Type 2 rey betes mellitus 34688038 E11.9 Farxiga 10 mg po daily.Metf ormin 1000 mg po bid.Test strips refilled. Hyperlipidemia 80030609 E78.5 low fat diet encouraged . [id number] Mary Kay Hopkins NP [address] [address] 05/11/2023 17:41:58 05/11/2023 18:07:15 Uncontrolled type 2 diabetes mellitus 549757964 E11.65 Metformin 1000 MG po bid increased from 500 mg bid on 01/31/23. Pt stats on 05/11/23 he is still on metformin 500 bid.Farxig a 10 mg daily started 01/31/23Labs due 05/02/23 but not done before appt so pt to get done LAXMI.Discu ssed starting ozempic if a1c high in 9s again. Obesity 477623908 E66.9 Low fat diet. Get to exercising on routine basis again. Hyperlipidemia 46302645 E78.5 low fat diet encouraged . Essential hypertension 07100783 I10 Lisinopril 20 mg po daily. Obstructiv e sleep apnea syndrome 54678138 G47.33 CPAP nightly. Strap is cutting back of head. Neosporin prn. [id number] Mary Kay Hopkins NP [facility] [place] [address] [place] [address] 11/05/2023 15:22:09 11/05/2023 16:14:13 Uncontrolled type 2 diabetes mellitus 254888002 E11.65 Metformin 1000 MG po bid increased from 500 mg bid on 01/31/23. Pt stats on 05/11/23 he is still on metformin 500 bid.Farxig a 10 mg daily started 01/31/23Labs due 05/02/23 but not done before appt so pt to get done LAXMI.Discu ssed starting ozempic if a1c high in 9s again. No labs done 10/2023. Pt to get from new provider as this provider leaving Obesity 672654786 E66.9 Low fat diet. Get to exercising on routine basis again. Hyperlipidemia 38905852 E78.5 low fat diet encouraged .Pt doesn't want to have statin Essential hypertension 31341047 I10 Lisinopril 20 mg po daily. Obstructiv e sleep apnea syndrome 55488081 G47.33 CPAP nightly. Strap is cutting back of head. Neosporin prn. Health Concerns Section Related Observation LastModified by Organization Detai ls LastModified Time None Recorded Concern Status LastModified by Organization Details LastModified Time None Recorded Advance Directives Directive N: Payers Encounter Date Sequence Insurance Name Policy Number Policy Luz Covered Member ID Luz Member ID Guarantor Name 02/02/2023 1 [employer] [id number] Roque Grider [id number] Roque Grider 05/11/2023 1 [employer] [id number] Roque Grider [id number] Roque Grider 11/05/2023 1 [employer] [id number] Roque Grider [id number] Roque Grider Notes Date Note Type Note Provider Name and Address Organization Details Recorded Time 02/02/2023 text/html Here for check up on labs. Sleep between 6-7 pm and wakes up at 1-2 am for work. Changing schedule now and will be there at 2 am. Off at 4 pm. 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 Not enough time to sleep.Hasn't been doing no sugar. Has been overeating. Has been eating carbs.Has changed diet 3 days ago. Working to improve health.Stopped exercising. Mary Kay Hopkins NP [address], [address], [place], [address], [employer] 02/02/2023 18:19:23 05/11/2023 text/html Here for check up. HTN- home bp 120/70DM- fasting 125-200. 200 is when not eating right.LUIS- CPAP nightly. Did not get labs drawn. States he was out of town. Fatigue- working 15 hour days. Mary Kay Hopkins NP [address], [address], [place], [address], [facility] 05/11/2023 18:12:03 11/05/2023 text/html Here for check up. HTN- home bp 120/70. Stable today.DM- 114 fasting. Has been focusing on diet since 10/25/23.LUIS- CPAP nightly. Just saw sleep spec 1 mo ago. CPAP settings same.Obese- working to reduce weight.Lipid- doesn't want to be on statin. skin- bilateral toenails with thick, discolored, flaky. Left foot pain. Skin discolored. NOt getting worse Over due for labs. Did not get done. Mary Kay Hopkins NP [address], [address], [place], [address], [facility] 11/05/2023 16:07:49
== END 2025-03-29 09:16 | disposition home or self-care (01) ==
PROVIDERS: PCP Nurse Practitioner Family; Visit Provider Internal Medicine Cardiovascular Disease
DX: I48.0 Paroxysmal atrial fibrillation (principal)
CPT/HCPCS: 78452; 93017; A9502; J2785

== ENCOUNTER 2025-04-12 14:31 | Emergency (ER) | payer OTHER, SELFPAY ==
[2025-04-12] VITALS (9 sets, daily range): BP systolic 103–162; BP diastolic 65–88; PULSE 93–116; RESP 15–28; TEMP 36.6; O2SAT 94–100
--- NOTE | ~2025-04-12 | CT_ITS ---
History: Syncope PROCEDURE: CT head without contrast. COMPARISON: None TECHNIQUE: Axial imaging of the head performed from the skull base to the vertex without IV contrast. Sagittal a nd coronal reformations obtained. DLP: 681 mGy-cm FINDINGS: The ventricles are normal in size, shape and position. There is no mass, mass effect or midline shift. There is no abnormal extra-axial fluid collection or intracranial hemorrhage. Mucoperiosteal thickening within the bilateral ethmoid sinuses. Remaining paranasal sinuses are clear. The mastoid air cells are well aerated. No acute displaced fractures within the overlying cranium. Impression: No acute intracranial hemorrhage or suspicious mass effect. Inflammatory sinus disease. Reviewed, dictated and finalized at location A. Impression: No acute intracranial hemorrhage or suspicious mass effect. Inflammatory sinus disease.
--- NOTE | ~2025-04-12 | XR_ITS ---
EXAMINATION: XR chest 2V DATE: 04/12/2025 15:17 INDICATION: Syncopal episode with atrial fibrillation TECHNIQUE: frontal and lateral views of the chest were obtained. COMPARISON: Chest radiograph dated 11/29/2023 FINDINGS: The lungs are clear with no focal airspace opacities, pulmonary edema, pleural effusion or pneumothor ax. The cardiomediastinal silhouette is normal. Thoracic spondylosis. IMPRESSION: 1. No acute cardiopulmonary disease. Reviewed, dictated and finalized at location B.
--- NOTE | 2025-04-12 14:38 | ECG_ITS ---
Test Date: 2025-04-12 14:41:17 Measurements Intervals [place] Rate: 109 P: 0 MA: 0 QRS: -44 QRSD: 116 T: 9 QT: 368 QTc: 497 Interpretive Statements ATRIAL FLUTTER/TACHYCARDIA WITH RAPID VENTRICULAR RESPONSE LEFT AXIS DEVIATION BORDERLINE R WAVE PROGRESSION, ANTERIOR LEADS BORDERLINE T WAVE ABNORMALITY- ANT/INF LEADS BASELINE ARTIFACT- I, II, III, AVR, AVL, AVF ABNORMAL ECG No previous ECG available for comparison Electronically Signed On 04-12-2025 15:01:19 CDT by rBent Larsen D.O.
--- OUTSIDE RECORDS SUMMARY | 2025-04-12 14:47 | XMS_ITS | Clinical Summary ---
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 Name Role Phone Unavailable Primary Care Provider Unavailabl e Social History Tobacco Use Types Packs/Day Years Used Date Smoking Tobacco: Never Assessed Sex and Gender Information Value Date Recorded Sex Assigned at Not on file Legal Sex Male 6:29 PM CDT Gender Identity Not on file Sexual Orientation Not on file Plan of Treatment Health Maintenance Due Date Last Done Comments Colorectal Cancer Screening Colonoscopy (10 Years) 1969 Annual Physical 1972 Hepatitis C 1987 DTaP, Tdap and Td Vaccines ( 1 - Tdap) 1988 Hepatitis B Vaccines (1 of 3 - 19+ 3-dose series) 1988 Pneumococcal Vaccine: 50+ Ye ars (1 of 1 - PCV) 2019 Zoster Vaccines (1 of 2) 2019 COVID-19 Vaccine (2023-2 5 season) 2024 Meningococcal B Vaccine Aged Out No l onger eligible based on patient's age to complete this topic Meningococcal Vaccine Aged Out No amie natali eligible based on patient's age to complete this topic RSV Immunizations Under 20 Months Aged Out No longer eligible based on patient's age to complete this topic
[2025-04-12 14:56] LABS: Basophils Absolute Auto 0.1 K/mm3 (0.0-0.1); Basophils Percent Auto 0.7 % (0.2-1.2); Eosinophils Absolute Auto 0.2 K/mm3 (0-0.3); Eosinophils Percent Auto 2.6 % (0-4.4); Hematocrit 47.6 % (42.0-52.0); Hemoglobin 15.9 g/dL (14.0-18.0); Immature Granulocyte Absolute 0.02 K/mm3 (0.00-0.031); Immature Granulocyte Percent A 0.2 % (0-0.5); Lymphocytes Absolute Auto 3.23 K/mm3 (0.9-3.2); Lymphocytes Percent Auto 34.4 % (18.3-44.2); Mean Corpuscular HGB Conc 33.4 g/dl (32-36); Mean Corpuscular Hemoglobin 30.3 pg (26-34); Mean Corpuscular Volume 90.7 fl (80-100); Monocytes Absolute Auto 0.8 K/mm3 (0.1-0.6); Monocytes Percent Auto 8.9 % (2.6-8.5); Neutrophils Percent Auto 53.2 % (45.5-73.1); Platelet Count Result 210 k/mm3 (150-375); Red Blood Count 5.25 M/mm3 (4.6-6.20); Red Cell Distribution Width 13.1 % (11.5-14.5); White Blood Count 9.4 K/mm3 (4.5-10.0)
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
[2025-04-12 15:05] LABS: Alanine Aminotransferase 60 U/L (6-50); Albumin Level 4.6 g/dL (3.5-5.1); Alkaline Phosphatase 46 U/L (38-126); Anion Gap 10 mmol/L (4-12); Aspartate Amino Transferase 77 U/L (17-59); Bilirubin,Total 0.7 mg/dL (0.2-1.3); Blood Urea Nitrogen 22 mg/dL (9-20); Calcium 9.4 mg/dL (8.4-10.2); Carbon Dioxide 21 mmol/L (22-30); Chloride 103 mmol/L (98-107); Estimated CRCL calculation 113 ml/min; Estimated Glomerular Filt Rate > 60; Glucose 150 mg/dL (65-110); Potassium 4.5 mmol/L (3.4-5.0); Sodium 134 mmol/L (137-145); Total Protein 8.4 g/dL (6.3-8.2)
[2025-04-12 15:26] LABS: INR 1.1
[2025-04-12 15:27] LABS: Partial Thromboplastin Time 28.1 Seconds (22.3-36.8)
[2025-04-12 15:47] LABS: Troponin I < 0.012 ng/mL (0.000-0.034)
[2025-04-12] MEDS: SODIUM CHLORIDE 0.9% IV 1,000 ML 999 ML IV CONT (16:04)
--- OUTSIDE RECORDS SUMMARY | 2025-04-12 16:46 | XMS_ITS | Data Portability ---
Author Organization [place] - [facility] [email or web address], Main Office Address [address] [place] [address] Care Team Providers Care Pot Holder Binder Name Role Phone CHARISSA HOPKINS Referring Provider [phone] Assessment No assessment recorded. Plan of Treatment Reminders Order Date Submit Date Provider Last Modified By Organization Details Last Modified Time Details Appointments None recorded. 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 DM, HTN, and pain in left foot. discolored skin. Please call patient to schedule appointment . 2023 024 [email or web address] Shen Smith Jr DPM, [address], [address], [place], [address], 4 16:38:20 Procedures None recorded. Surgeries None recorded. Imaging None recorded. Medication Orders metformin 1,000 mg tablet 2023 024 [facility] #[id number], [address], [place], [id number], 4 15:59:14 Farxiga 10 mg tablet 2023 024 [facility] #21855, [address], [place], [id number], 4 15:59:12 lisinopril 20 mg tablet 2023 024 [facility] #72822, [address], [place], [id number], 4 15:59:13 Contour Next Test Strips 2022 023 [facility] [place], [address], 3 18:08:38 Patient TargetsNo targets recorded. Patient Instructions Encounter Date Encounter Id Patient Instructions Last Modified By Organization Details Last Modified Time 02/02/2023 [id number] 3 mo fu dm, lipid, weight Not available 02/02/2023 18:12:19 11/05/2023 [id number] 11/05/23 pt aware of dominique departure. Labs with new provider. FU in 1-3 mo. 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 DM, HTN, and pain in left foot. discolored skin. Please call patient to schedule appointment. Referring Physician: Charissa Hopkins, Family Medicine, Encounter Date: 11/05/2023 Results Created Date Observation Date Name Description Value Unit Range Abnormal Flag Note LastModifiedBy Organization Detail LastModifiedTime Result Notes None recorded. Problems Name Problem SNOMED Code Status Onset Date Resolution Date Notes Provider Name and Address Organization Details Recorded Time Edema of lower extremity 621477745 Active Not Available 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 Active Not Available [facility] 3 08:09:59 Dry skin 22580729 Active Not Available [facility] 3 08:09:59 On examinatio n - skin tags Active Not Available [facility] 3 08:09:59 Insomnia 783669860 Active Not Available [facility] 3 08:10:00 Pain of joint of ankle 968082664 Active Not Available [facility] 3 08:10:00 Benign prostatic hyperplasi a 557113219 Active 2020 Not Available [facility] 3 08:10:00 Shoulder joint pain 602895554 Active Not Available [facility] 3 08:10:00 Pruritic disorder 837677492 Active Not Available [facility] 3 08:10:00 Tachycardi a 1590875 Active 2017 Not Available [facility] 3 08:10:00 Elevated blood-pres sure reading without diagnosis of hypertensi on 344357370 Completed 201706/13/2019 Not Available [facility] 3 08:10:00 Sleep disorder 36352031 Active Not Available [facility] 3 08:10:00 Multiple skin tags 878407223 Active Not Available [facility] 3 08:10:00 Obesity 675567534 Active Not Available [facility] 3 08:10:00 Onychomyco sis 289099152 Active 2017 Not Available [facility] 3 08:10:00 Type 2 diabetes mellitus 14681555 Active 2020 9.1 a1c in ER 05/2021 Not Available [facility] 3 08:10:00 Sprain of ankle 93910267 Active Not Available [facility] 3 08:10:01 Essential hypertensi on 38764040 Active [address] [facility] 3 08:10:01 Muscle pain 64839159 Active Not Available [facility] 3 08:10:01 Local infection of wound 89346703 Active Not Available [facility] 3 08:10:01 Obstructiv e sleep apnea syndrome 61820293 Active [address] [facility] 3 08:10:01 Uncontroll ed type 2 diabetes mellitus 227518938 Active 2022 Charissa Hopkins NP [address] [facility] [address], [address], [place], [address] , [employer] 3 11:55:54 Hyperlipid emia 09636775 Active 2022 Charissa Hopkins NP [address] [employer], [address], [place], [address] , [employer] 3 18:09:16 Problem Notes None recorded. Procedures Surgical History Date Name Laterality Status Provider Name and Address Organization Details Recorded Time 0 colonoscopy completed Not Available [facility] 12/24/19 23 08:06:46 Imaging Results None recorded. [...] % 92 /min 16 /min 98.6 [degF] 351223. 94 g 171 mm[Hg] 103 mm[Hg] 146 mm[Hg] 82 mm[Hg] Not Available [facility] 3 08:08:53 Date Recorded Body height Body mass index (BMI) Body weight Body temperature Heart rate Oxygen saturation Oxygen saturation in Arterial blood by Pulse oximetry Respiratory rate Systolic blood pressure Diastolic blood pressure Provider Name and Address Organization Details Last Updated DateTime 4 175.26 cm 43.1 kg/m2 781111. 67 g 96.8 [degF] 80 /min 93 % 93 % 24 /min 136 mm[Hg] 76 mm[Hg] Charissa Kilpatrick RN [facility] [email or web address] 4 15:39:51 Date Recorded Body height Body mass index (BMI) Body weight Body temperature Heart rate Respiratory rate Oxygen saturation Oxygen saturation in Arterial blood by Pulse oximetry Systolic blood pressure Diastolic blood pressure Provider Name and Address Organization Details Last Updated DateTime 3 175.26 cm 44.2 kg/m2 175713. 27 g 97.6 [degF] 92 /min 20 /min 97 % 97 % 124 mm[Hg] 78 mm[Hg] Charissa Kilpatrick RN [facility] [email or web address] 3 17:49:35 Date Recorded Body height Body mass index (BMI) Body weight Body temperature Heart rate Respiratory rate Oxygen saturation Oxygen saturation in Arterial blood by Pulse oximetry Systolic blood pressure Diastolic blood pressure Provider Name and Address Organization Details Last Updated DateTime 3 175.26 cm 44 kg/m2 478947. 23 g 95.2 [degF] 92 /min 20 /min 97 % 97 % 134 mm[Hg] 86 mm[Hg] Charissa Kilpatrick RN [place] [facility] 3 17:50:48 Date Recorded Body mass index (BMI) Body height Oxygen saturation Oxygen saturation in Arterial blood by Pulse oximetry Heart rate Body temperature Body weight Systolic blood pressure Diastolic blood pressure Provider Name and Address Organization Details Last Updated DateTime 2 44 kg/m2 175.26 cm 94 % 94 % 90 /min 98.6 [degF] 243005. 53 g 142 mm[Hg] 88 mm[Hg] Not Available [facility] 3 08:08:53 Social History Question Answer Notes LastModified by Organization Details LastModified Time Tobacco Smoking Status Former Smoker Not Available [facility] 12/23/2022 08:06:35 Do You Have An Advance Directive? No MIGRATION.[id number] [id number] Information not available 12/23/2022 Is Blood Transfusion Acceptable In An Emergency? Yes Information not available 02/02/2023 What Is Your Level Of Caffeine Consumption? Moderate MIGRATION.0301 [id number] Information not available 12/23/2022 What Is Your Code Status? Full Code MIGRATION.[id number] [id number] Information not available 12/23/2022 In The 14 Days Before Symptom Onset, Have You Had Close Contact With A Laboratory-confi rmed COVID-19 While That Case Was Ill? No MIGRATION.0301 [id number] Information not available 12/23/2022 In The 14 Days Before Symptom Onset, Have You Had Close Contact With A Person Who Is Under Investigation For COVID-19 While That Person Was Ill? No MIGRATION.0301 [id number] Information not available 12/23/2022 What Type Of Diet Are You Following? DIABETIC MIGRATION.0301 648122 Information not available 12/23/2022 How Many Days Of Moderate To Strenuous Exercise, Like A Brisk Walk, Did You Do In The Last 7 Days? 20 Information not available 02/02/2023 Have There Been Any Changes To Your Family Or Social Situation? No MIGRATION.0301 488225 Information not available 12/23/2022 When Did You Quit Smoking? 15+yearssincelphilip pike Quit In 1999 MIGRATION.0301 199766 Information not available 12/23/2022 Are There Any Guns Present In Your Home? Yes MIGRATION.0301 823076 Information not available 12/23/2022 Do You Use Insect Repellent Routinely? Yes MIGRATION.0301 175933 Information not available 12/23/2022 Where Do You Live? [place]LevelHouse MIGRATION.0301 334980 Information not available 12/23/2022 Do You Have A Medical Power Of Game Trapper? No MIGRATION.0301 [id number] Information not available 12/23/2022 How Many Children Do You Have? 2 Information not available 02/02/2023 Do You Have Any Pets? No MIGRATION.0301 668964 Information not available 12/23/2022 What Is Your Relationship Status? MIGRATION.0301 251940 Information not available 12/23/2022 Do You Use Your Seat Belt Or Car Seat Routinely? Yes Information not available 02/02/2023 Do You Have Smoke And Carbon Monoxide Detectors In Your Home? Yes MIGRATION.0301 353749 Information not available 12/23/2022 Are There Any Smokers In Your House? No MIGRATION.0301 376803 Information not available 12/23/2022 Do You Participate In Social Media? No Information not available 02/02/2023 What Types Of Sporting Activities Do You Participate In? Walking Information not available 02/02/2023 Do You Use Sunscreen Routinely? Yes MIGRATION.0301 359503 Information not available 12/23/2022 Have You Recently Traveled Abroad? No MIGRATION.0301 122831 Information not available 12/23/2022 Sex: Male Functional Status Question Answer Note LastModified by Organizat ion Details LastModified Time Do you use any illicit or recreational drugs? No MIGRATION.[id number] Information not available 12/23/2022 What is your level of alcohol consumption? Occasional MIGRATION.234084 9794 Information not available 12/23/2022 Are you currently employed? 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 Occasional MIGRATION.574368 2165 Information not available 12/23/2022 Mental Status Question Answer Note LastModified by Organizat ion Details LastModified Time Do you feel stressed (tense, restless, nervous, or anxious, or unable to sleep at night)? [id number] [id number] Information not available 12/23/2022 Family History Relationship Description Onset Age of this Age Resolved Age Notes LastModified by Organization Details LastModified Time Father Cerebrovascu lar accident [id number] Not available 12/23/2022 08:06:48 Medical History Condition Response BLINDNESS N RHEUMATIC FEVER N BLADDER PROBLEMS N KIDNEY STONES N MRSA N OTHER # 1 N POLIO N LUNG DISEASE/DISORDER N HISTORY OF DRUG ABUSE N RADIATION / CHEMOTHERAPY N COPD N Other # 2 N BLOOD DISEASES N SURGERY N EAR OR HEARING PROBLEMS N MUMPS N SHINGLES N FEMALE PROBLEMS / INFECTIONS N DEPRESSION (INCLUDING POST ) N BOWEL PROBLEMS N STROKE/TIA N THYROID DISEASE N ULCERS N BENIGN PROSTATIC HYPERPLASIA N MEASLES N CERVICALGIA N TB SKIN TEST N HYPOTENSION N MYOCARDIAL INFARCTION N PARAPELGIA N OBESITY [...] GLAUCOMA N FOOT PROBLEM N DIVERTICULITIS N SLEEP APNEA N CHICKENPOX N ALLERGIES/HAYFEVER N INFECTIOUS DISEASE N PROSTATE N HEART ARRHYTHMIA N INSOMNIA N HIGH CHOLESTEROL / HYPERLIPIDEMIA N HYPERTHYROIDISM N EYE PROBLEMS N EATING DISORDER N EDEMA N CHRONIC PAIN SYNDROME N CONSTIPATION N CAROTID BLOCKAGE N BACK / NECK PROBLEMS N HAVE YOU BEEN HOSPITALIZED OR SEEN IN [facility] IN THE PAST YEAR ? N ATHEROSCLEROSIS [...] N PAIN N HERPES N DEMENTIA N SEIZURES/EPILEPSY N HEADACHES/MIGRAINES N VASCULAR DISEASE N PACEMAKER N DIZZINESS N KIDNEY DISEASE N HEART DISEASE/HEART PROBLEMS N SCARLET FEVER N MULTIPLE SCLEROSIS N MENTAL DISORDER/ILLNESS N DEVELOPMENTAL OR BEHAVIORAL DISORDERS N CARDIAC ARRHYTHMIA N CANCER: SPECIFY N PNEUMONIA N Gall Stones N ATRIAL FIBRILLATION N PULMONARY EMBOLISM N AUTOIMMUNE DISEASE N Immunizations Vaccine Type Date Status Note Provider Nam e and Address Organization Details Recorded Time Tdap 08/27/2021 completed Not Available [facility] 12/23/2022 08:14:08 Past Encounters Encounter ID Performer Location Encounter Start Date Encounter Closed Date Diagnosis/Indication Diagnosis SNOMED-CT Code Diagnosis ICD10 Code Diagnosis Note [id number] Ky Diego MD [address] [address] 05/07/2021 00:00:00 05/07/2021 16:50:11 [id number] Ky Diego MD [address] [address] 06/18/2021 00:00:00 06/18/2021 17:50:00 [id number] Ky Diego MD [address] [address] 08/27/2021 00:00:00 08/27/2021 17:53:22 [id number] Ky Diego MD [address] [address] 09/17/2021 00:00:00 09/17/2021 12:41:51 [id number] Ky Diego MD [address] [address] 01/14/2022 00:00:00 01/14/2022 18:13:17 [id number] Ky Diego MD [address] [address] 04/23/2022 00:00:00 04/23/2022 17:49:38 [id number] Charissa Hopkins NP [address] [address] 07/28/2022 00:00:00 07/28/2022 18:09:39 [id number] Ky Diego MD [address] [address] 11/03/2022 00:00:00 11/03/2022 18:12:37 [id number] Charissa Hopkins NP [address] [address] 02/02/2023 17:40:38 02/02/2023 18:13:32 Obesity 764632018 E66.9 Low fat diet. Get to exercising on routine basis again. Essential hypertension 96193515 I10 Lisinopril 20 mg po daily. Type 2 rey betes mellitus 92342206 E11.9 Farxiga 10 mg po daily.Metf ormin 1000 mg po bid.Test strips refilled. Hyperlipidemia 34021612 E78.5 low fat diet encouraged . [id number] Charissa Hopkins NP [address] [address] 05/11/2023 17:41:58 05/11/2023 18:07:15 Uncontrolled type 2 diabetes mellitus 284387777 E11.65 Metformin 1000 MG po bid increased from 500 mg bid on 01/31/23. Pt stats on 05/11/23 he is still on metformin 500 bid.Farxig a 10 mg daily started 01/31/23Labs due 05/02/23 but not done before appt so pt to get done LAXMI.Discu ssed starting ozempic if a1c high in 9s again. Obesity 549649525 E66.9 Low fat diet. Get to exercising on routine basis again. Hyperlipidemia 10013584 E78.5 low fat diet encouraged . Essential hypertension 18258141 I10 Lisinopril 20 mg po daily. Obstructiv e sleep apnea syndrome 08280918 G47.33 CPAP nightly. Strap is cutting back of head. Neosporin prn. [id number] Charissa Hopkins NP [facility] [address] [place] [address] 11/05/2023 15:22:09 11/05/2023 16:14:13 Uncontrolled type 2 diabetes mellitus 699294804 E11.65 Metformin 1000 MG po bid increased [...] new provider as this provider leaving Obesity 946524673 E66.9 Low fat diet. Get to exercising on routine basis again. Hyperlipidemia 28735426 E78.5 low fat diet encouraged .Pt doesn't want to have statin Essential hypertension 46355963 I10 Lisinopril 20 mg po daily. Obstructiv e sleep apnea syndrome 10198582 G47.33 CPAP nightly. Strap is cutting back of head. Neosporin prn. Health Concerns Section Related Observation LastModified by Organization Detai ls LastModified Time None Recorded Concern Status LastModified by Organization Details LastModified Time None Recorded Advance Directives Directive N: Payers Insurance Date Sequence Insurance Name Policy Number Policy Luz Covered Member ID Luz Member ID Guarantor Name 11/08/2023 1 [employer] [id number] Roque Grider [id number] Roque Grider Notes Date Note Type Note Provider Name and Address Organization Details Recorded Time 02/02/2023 text/html Here for check up on labs. Sleep between 6-7 pm and wakes up at 1-2 am for work. Changing schedule now and will be there at 2 am. 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 Not enough time to sleep.Hasn't been doing no sugar. Has been overeating. Has been eating carbs.Has changed diet 3 days ago. Working to improve health.Stopped exercising. Charissa Hopkins NP [address] [facility] [facility] [address], [place], [address], [facility] [employer] 02/02/2023 18:19:23 05/11/2023 text/html Here for check up. HTN- home bp 120/70DM- fasting 125-200. 200 is when not eating right.LUIS- CPAP nightly. Did not get labs drawn. States he was out of town. Fatigue- working 15 hour days. Charissa Hopkins NP [address], [address], [place], [address], [employer] 05/11/2023 18:12:03 11/05/2023 text/html Here for check [...] due for labs. Did not get done. Charissa Hopkins NP [address], [address], [place], [address], [employer] 11/05/2023 16:07:49
--- OUTSIDE RECORDS SUMMARY | 2025-04-12 16:46 | XMS_ITS | Clinical Summary ---
Author Organization [facility] Address [facility] [place] [address] Care Team Providers Care Tip Stitcher Name Role Phone Unavailable Primary Care Provider [...]
--- NOTE | 2025-04-12 17:44 | ECG_ITS ---
Test Date: 2025-04-12 17:47:42 Measurements Intervals [place] Rate: 97 P: 244 OR: 252 QRS: -42 QRSD: 108 T: -29 QT: 387 QTc: 493 Interpretive Statements ATRIAL FLUTTER/TACHYCARDIA WITH VARIABLE BLOCK LEFT AXIS DEVIATION PATTERN CONSISTENT WITH PULMONARY DISEASE CONSIDER INFERIOR INFARCT, AGE INDETERMINATE BORDERLINE T WAVE ABNORMALITY- ANTEROLATERAL LEADS BASELINE ARTIFACT- I, II, III, AVR, AVL, AVF, V1-V2 ABNORMAL ECG Compared to ECG 04/12/2025 14:41:17 HEART RATE HAS DECREASED Electronically Signed On 04-12-2025 20:24:20 CDT by Brent Larsen D.O.
[2025-04-12 18:05] LABS: Troponin I < 0.012 ng/mL (0.000-0.034)
[2025-04-12 18:36] LABS: Magnesium 2.2 mg/dL (1.6-2.3)
== END 2025-04-12 18:50 | disposition home or self-care (01) ==
PROVIDERS: Emergency Medicine; Emergency Provider Physician Assistant; PCP Nurse Practitioner Family
DX: R55 Syncope and collapse (principal); E11.9 Type 2 diabetes mellitus without complications; I48.0 Paroxysmal atrial fibrillation; I48.92 Unspecified atrial flutter; N40.0 Benign prostatic hyperplasia without lower urinary tract symptoms; M19.90 Unspecified osteoarthritis, unspecified site; Z87.891 Personal history of nicotine dependence; Z79.01 Long term (current) use of anticoagulants; Z79.85 Long-term (current) use of injectable non-insulin antidiabetic drugs; Z79.899 Other long term (current) drug therapy; R94.31 Abnormal electrocardiogram [ECG] [EKG]
CPT/HCPCS: 36415; 70450; 71046; 80053; 83735; 84484; 85025; 85610; 85730; 93005; 96360; 99284; J7030

== ENCOUNTER 2025-04-13 17:38 | Inpatient (IN) | payer OTHER, SELFPAY ==
[2025-04-13] VITALS (11 sets, daily range): BP systolic 97–139; BP diastolic 69–100; PULSE 74–96; RESP 17–28; TEMP 36.6; O2SAT 95–100; BMI 43.2
--- NOTE | ~2025-04-13 | XR_ITS ---
EXAMINATION: XR chest 1V portable DATE: 04/14/2025 05:42 INDICATION: Acute hypoxia. New cough. TECHNIQUE: frontal view of the chest was obtained. COMPARISON: Chest radiograph dated 04/13/2025 FINDINGS: Increased interstitial pattern with peripheral Saleem B-lines in the bilateral mid and lower lung zon es consistent with mild pulmonary edema. No pleural effusion or pneumothorax. Heart size is normal. IMPRESSION: 1. Opacities in bilateral mid and lower lung zones most consistent with mild pulmonary edema. Reviewed, dictated and finalized at location A. IMPRESSION: 1. Opacities in bilateral mid and lower lung zones most consistent with mild pu lmonary edema.
--- NOTE | ~2025-04-13 | CT_ITS ---
EXAMINATION: CTA chest PE protocol DATE: 04/14/2025 06:21 INDICATION: Acute hypoxia. Syncope. Ventricular tachycardia. TECHNIQUE: Computed tomography (CT) pulmonary angiogram of the chest was performed with 100 mL Omnipa que-350 intravenous contrast. Additional 3D reconstructions utilizing coronal maximum intensity proje ction (MIP) were performed. Automated exposure control and iterative reconstruction technique were em ployed. The dose-length product was 1096.25 mGy-cm. COMPARISON: None FINDINGS: No pulmonary embolism. Sensitivity decreased in some of the smaller subsegmental pulmonary arteries d ue to adequate but suboptimal contrast opacification of the pulmonary arteries and scattered respirat ory motion artifact. Dependent predominant groundglass opacities in both lungs with some smooth septa l line thickening at the lung bases consistent with mild pulmonary edema. Very small bilateral pleura l effusions. Calcified left upper lobe nodule along with calcified left hilar and mediastinal lymph n odes consistent with old granulomatous disease. Heart size is normal. No pericardial effusion. Thorac ic aorta is normal in caliber. No pathologically enlarged thoracic lymphadenopathy. Diffuse hepatic s teatosis with focal sparing along the gallbladder fossa. Mild thoracic spondylosis. IMPRESSION: 1. Mild bilateral pulmonary edema with very small bilateral pleural effusions. Reviewed, dictated and finalized at location A.
--- NOTE | ~2025-04-13 | XR_ITS ---
CHEST RADIOGRAPH CLINICAL HISTORY: V tach . COMPARISON: None available TECHNIQUE: Single portable view of the chest. FINDINGS The cardiomediastinal silhouette is unremarkable. The lungs are clear. IMPRESSION: No focal infiltrate or effusion. Reviewed, dictated and finalized at location A.
--- NOTE | 2025-04-13 17:46 | ECG_ITS ---
Test Date: 2025-04-13 17:49:25 Measurements Intervals [place] Rate: 88 P: 60 ME: 229 QRS: -27 QRSD: 118 T: 9 QT: 383 QTc: 464 Interpretive Statements SINUS RHYTHM WITH FIRST DEGREE AV BLOCK INTRAVENTRICULAR CONDUCTION DELAY DELAYED PRECORDIAL R/S TRANSITION CONSIDER INFERIOR INFARCT, AGE INDETERMINATE BORDERLINE ST ABNORMALITY- ANTEROLATERAL LEADS BASELINE ARTIFACT- I, II, III, AVR, AVL, AVF, V1-V2 ABNORMAL ECG Compared to ECG 04/12/2025 17:47:42 ATRIAL FLUTTER NO LONGER PRESENT Electronically Signed On 04-13-2025 20:29:54 CDT by Brent Larsen D.O.
[2025-04-13 19:12] LABS: Basophils Absolute Auto 0.1 K/mm3 (0.0-0.1); Basophils Percent Auto 0.5 % (0.2-1.2); Eosinophils Percent Auto 0.3 % (0-4.4); Hematocrit 49.1 % (42.0-52.0); Hemoglobin 16.1 g/dL (14.0-18.0); Immature Granulocyte Absolute 0.08 K/mm3 (0.00-0.031); Immature Granulocyte Percent A 0.6 % (0-0.5); Lymphocytes Absolute Auto 1.73 K/mm3 (0.9-3.2); Lymphocytes Percent Auto 12.9 % (18.3-44.2); Mean Corpuscular HGB Conc 32.8 g/dl (32-36); Mean Corpuscular Hemoglobin 30.3 pg (26-34); Mean Corpuscular Volume 92.3 fl (80-100); Mean Platelet Volume 10.9 fl (7.4-10.4); Monocytes Percent Auto 7.7 % (2.6-8.5); Neutrophils Absolute Auto 10.5 K/mm3 (1.3-6.7); Platelet Count Result 210 k/mm3 (150-375); Red Blood Count 5.32 M/mm3 (4.6-6.20); Red Cell Distribution Width 13.3 % (11.5-14.5); White Blood Count 13.4 K/mm3 (4.5-10.0)
--- NOTE | 2025-04-13 19:22 | PC.NURSE ---
Report received from CHERI Snyder. Assumed care of patient at this time.
[2025-04-13 19:23] LABS: INR 1.1; Prothrombin Time 14.2 Seconds (11.1-14.7)
[2025-04-13 19:24] LABS: Alanine Aminotransferase 161 U/L (6-50); Albumin Level 4.7 g/dL (3.5-5.1); Alkaline Phosphatase 46 U/L (38-126); Anion Gap 17 mmol/L (4-12); Aspartate Amino Transferase 276 U/L (17-59); Bilirubin,Total 0.6 mg/dL (0.2-1.3); Blood Urea Nitrogen 23 mg/dL (9-20); Calcium 9.9 mg/dL (8.4-10.2); Carbon Dioxide 18 mmol/L (22-30); Chloride 104 mmol/L (98-107); Estimated CRCL calculation 74 ml/min; Estimated Glomerular Filt Rate 54; Glucose 278 mg/dL (65-110); Partial Thromboplastin Time 25.8 Seconds (22.3-36.8); Potassium 4.4 mmol/L (3.4-5.0); Sodium 139 mmol/L (137-145); Total Protein 8.4 g/dL (6.3-8.2)
[2025-04-13 19:40] LABS: NT Pro B Type Natriuretic Pept 945 pg/mL (19.9-100)
--- NOTE | 2025-04-13 19:50 | ED_ITS ---
HPI - General Adult General Chief complaint: Arrhythmia/Palpitations Stated complaint: VTACH now SR Time Seen by Provider: 04/13/25 17:45 History of Present Illness HPI narrative: This is a 54-year-old male presenting ED after an episode of V-tach. Patient was seen here yesterday after an episode of syncope. Dr. Larsen (supplier quality specialist) was consulted and recommended holding his diltiazem and having him follow up in clinic this morning. Patient follow-up appropriately with no issue. However 1 hour prior to arrival the patient started to become pale diaphoretic and have trouble breathing. EMS was called and he was found to be in V-tach. He was cardioverted with return to normal sinus rhythm. He is now asymptomatic. Patient is on flecainide, metoprolol and diltiazem. Related Data Home Medications ?Medication ?Instructions ?Recorded ?Confirmed ?Last Taken ?Type metoprolol succinate 100 mg 100 mg PO QAM 02/28/25 04/13/25 Unknown History tablet,extended release 24 hr Allergies Allergy/AdvReac Type Severity Reaction Status Date / Time No Known Allergies Allergy Unknown Verified 04/12/25 14:58 [facility] Past Medical History Medical History (Updated 04/13/25 @ 21:05 by Ascencion Howe MD) Diabetes mellitus PAF (paroxysmal atrial fibrillation) Paroxysmal atrial flutter BPH (benign prostatic hyperplasia) HTN (hypertension) with goal to be determined Arthritis Surgical History Surgical History Hx of tonsillectomy Family History Family History Father Cerebrovascular accident Social History Social History Social History: 08/03/24 very confident with medical forms Smoking packs per day: 1 Smoking cigarettes per day: 20.0 Years smoked: 15 Smoking pack-years: 15.00 Smoking status: Former smoker Second hand tobacco smoke exposure: No Smoking end date: 10/25/99 Additional smoking assessment comments: Smoked about 1PPD for 15 years Alcohol intake: current Drinks per week: 3 Alcohol use details: Drinks about 1-3 per week Substance use: never Substance use type: does not use Do You Feel Safe in your Home?: Yes Lack of Transportation: No Lack of Food: Never True Current Housing: I Have Housing Concerned About Future Housing: No Difficulty Paying Gas/Electric Bills: YES Difficulty Paying for Meds: No Currently Unemployed: No Education: High School Diploma/GED Difficulty w/ Childcare or Family Care: No Living arrangements: with family Additional living arrangements comments: Lives in [place], [place] with his and children. 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 Head: atraumatic. EYES: EOMI, NOSE: Atraumatic NECK: Trachea midline RESPIRATORY: No increased rate of breathing clear to auscultation CARDIOVASCULAR: RRR, no peripheral edema ABDOMINAL: Non-distended soft nontender MUSCULOSKELETAl: No obvious deformities NEURO: Alert. Moving 4/4 extremities SKIN:: Warm, dry. Normal color PSYCHIATRIC: Normal affect Course Vital Signs Vital signs: Vital Signs Temperature 97.9 F 04/13/25 17:41 Pulse Rate 89 04/13/25 17:41 Respiratory Rate 18 04/13/25 17:41 Blood Pressure 97/69 L 04/13/25 17:41 Pulse Oximetry 100 04/13/25 17:41 Oxygen Delivery Room Air 04/13/25 17:41 Temperature 97.9 F 04/13/25 17:41 Pulse Rate 93 04/13/25 21:10 Respiratory Rate 17 04/13/25 21:10 Blood Pressure 138/85 04/13/25 21:10 Pulse Oximetry 95 04/13/25 21:10 Oxygen Delivery Room Air 04/13/25 17:41 Medical Decision Making [facility] Narrative Medical decision making narrative: -Course: 54-year-old male presenting after an episode of V-tach. He was successfully cardioverted in the field. Case was discussed with Dr. Larsen. Patient will need to be taken off flecainide as that may be the precipitating factor. It will require a 1 week washout. I asked about other anti dysrhythmics such as amiodarone however those will need to be restarted after the flecainide has washed out. Patient's workup was significant for a troponin of 8.51. EKG shows ST depressions V4 through V6 but no STEMI. Patient has been started on heparin. Case was discussed with Dr. Larsen, Dr. Thakkar and Dr. Cary patient will be placed in the ICU Patient will be admitted the hospital for further management. -DDX includes but is not limited to: V-tach, AFib with bundle-branch block, ACS, cardiomyopathy Independent EKG interpretation: Rhythm [sinus], Rate [88], [place] -[normal], [place] -[prolonged], QRS [narrow], QTC [464], T waves -[negative for concerning inversions], ST Segments - [ST depressions in V4 through V6] Final interpretations: Normal sinus rhythm with ST depressions in V4 through V6 Vital Signs Vital Signs: Vital Signs Temperature 97.9 F 04/13/25 17:41 Pulse Rate 89 04/13/25 17:41 Respiratory Rate 18 04/13/25 17:41 Blood Pressure 97/69 L 04/13/25 17:41 Pulse Oximetry 100 04/13/25 17:41 Oxygen Delivery Room Air 04/13/25 17:41 Temperature 97.9 F 04/13/25 17:41 Pulse Rate 93 04/13/25 21:10 Respiratory Rate 17 04/13/25 21:10 Blood Pressure 138/85 04/13/25 21:10 Pulse Oximetry 95 04/13/25 21:10 Oxygen Delivery Room Air 04/13/25 17:41 Lab Data 04/13/25 20:28 04/13/25 19:06 Labs: Lab Results 04/13/25 04/13/25 Range/Units 19:06 20:28 WBC 13.4 H 13.4 H (4.5-10.0) K/mm3 RBC 5.32 4.91 (4.6-6.20) M/mm3 Hgb 16.1 14.9 (14.0-18.0) g/dL Hct 49.1 45.0 (42.0-52.0) % MCV 92.3 91.6 (80-100) fl MCH 30.3 30.3 (26-34) pg MCHC 32.8 33.1 (32-36) g/dl RDW 13.3 13.4 (11.5-14.5) % Plt Count 210 207 (150-375) k/mm3 MPV 10.9 H 11.2 H (7.4-10.4) fl Immature Gran % (Auto) 0.6 H 0.5 (0-0.5) % Neut % (Auto) 78.0 H 76.0 H (45.5-73.1) % Lymph % (Auto) 12.9 L 13.1 L (18.3-44.2) % [place] % (Auto) 7.7 9.9 H (2.6-8.5) % Eos % (Auto) 0.3 0.1 (0-4.4) % Baso % (Auto) 0.5 0.4 (0.2-1.2) % Lymph # (Auto) 1.73 1.75 (0.9-3.2) K/mm3 [place] # (Auto) 1.0 H 1.3 H (0.1-0.6) K/mm3 Eos # (Auto) 0.0 0.0 (0-0.3) K/mm3 Baso # (Auto) 0.1 0.1 (0.0-0.1) K/mm3 Abs Immat Gran (auto) 0.08 H 0.07 H (0.00-0.031) K/mm3 Absolute Neuts (auto) 10.5 H 10.2 H (1.3-6.7) K/mm3 Absolute Nucleated RBC 0.000 0.000 (0.0-0.012) K/mm3 Nucleated RBC % 0.0 0.0 (0.0-0.2) % PT 14.2 14.4 (11.1-14.7) Seconds INR 1.1 1.1 APTT 25.8 24.8 (22.3-36.8) Seconds Sodium 139 (137-145) mmol/L Potassium 4.4 (3.4-5.0) mmol/L Chloride 104 (98-107) mmol/L Carbon Dioxide 18 L (22-30) mmol/L [place] 17 H (4-12) mmol/L BUN 23 H (9-20) mg/dL Creatinine 1.37 H (0.7-1.3) mg/dL Estim Creat Clear Calc 74 ml/min Estimated GFR 54 L (59 - ) Glucose 278 H (65-110) mg/dL Calcium 9.9 (8.4-10.2) mg/dL Magnesium 2.2 (1.6-2.3) mg/dL Total Bilirubin 0.6 (0.2-1.3) mg/dL AST 276 H (17-59) U/L ALT 161 H (6-50) U/L Alkaline Phosphatase 46 (38-126) U/L Troponin I 8.510 H* 18.800 H* D (0.000-0.034) ng/mL NT-Pro-B Natriuret Pep 945 H (19.9-100) pg/mL Total Protein 8.4 H (6.3-8.2) g/dL Albumin 4.7 (3.5-5.1) g/dL Critical Care Time Critical Care Time Critical Care Time: Yes Total Critical Care Time: 35 Discharge Plan Discharge Clinical Impression: V tach, Elevated troponin, MICHEL (acute kidney injury) Patient Disposition: Still a Patient Condition: Serious Patient Language: Croatian Prescriptions: No Action diltiazem HCl 30 mg tablet 30 mg PO BID Qty: 60 3RF tramadol 50 mg tablet 50 mg PO Q12H PRN (Reason: pain) Qty: 30 0RF metoprolol succinate 100 mg tablet extended release 24 hr 100 mg PO QAM metformin 500 mg tablet 500 mg PO BID Qty: 180 1RF Eliquis 5 mg tablet See Rx Instructions .ROUTE .COMPLEX Qty: 60 5RF Dose Instruction: TAKE 1 TABLET BY MOUTH EVERY 12 HOURS Rx Instructions: TAKE 1 TABLET BY MOUTH EVERY 12 HOURS tamsulosin 0.4 mg capsule 0.4 mg PO DAILY Qty: 90 1RF sertraline 50 mg tablet 50 mg PO DAILY Qty: 90 0RF dapagliflozin propanediol [Farxiga] 10 mg tablet 10 mg PO DAILY Qty: 90 1RF flecainide 100 mg tablet 100 mg PO Q12H Qty: 60 5RF Ozempic 1 mg/dose (4 mg/3 mL) pen injector 1 mg subcut WEEKLY Qty: 3 5RF Ozempic 0.25 mg or 0.5 mg (2 mg/3 mL) pen injector 0.25 mg subcut WEEKLY Qty: 3 0RF Rx Instructions: for 4 weeks, then 0.5 mg weekly for 4 weeks. Follow-up/Referrals: Charissa Noonan APRN [Primary Care Provider] -
[2025-04-13] MEDS: HEPARIN SODIUM 5,000 UNITS/ML VIAL 4000 UNITS IV PUSH (20:28)
--- NOTE | 2025-04-13 20:33 | ECG_ITS ---
Test Date: 2025-04-13 20:50:53 Measurements Intervals [place] Rate: 94 P: 51 [place]: 225 QRS: -23 QRSD: 106 T: 7 QT: 332 QTc: 415 Interpretive Statements SINUS RHYTHM WITH FIRST DEGREE AV BLOCK BORDERLINE R WAVE PROGRESSION, ANTERIOR LEADS BORDERLINE ST-T WAVE ABNORMALITY- INF/LAT LEADS BORDERLINE ECG Compared to ECG 04/13/2025 17:49:25 NO SIGNIFICANT CHANGE Electronically Signed On 04-13-2025 21:30:07 CDT by Brent Larsen D.O.
[2025-04-13 20:36] LABS: Basophils Absolute Auto 0.1 K/mm3 (0.0-0.1); Basophils Percent Auto 0.4 % (0.2-1.2); Eosinophils Percent Auto 0.1 % (0-4.4); Hemoglobin 14.9 g/dL (14.0-18.0); Immature Granulocyte Absolute 0.07 K/mm3 (0.00-0.031); Immature Granulocyte Percent A 0.5 % (0-0.5); Lymphocytes Absolute Auto 1.75 K/mm3 (0.9-3.2); Lymphocytes Percent Auto 13.1 % (18.3-44.2); Mean Corpuscular HGB Conc 33.1 g/dl (32-36); Mean Corpuscular Hemoglobin 30.3 pg (26-34); Mean Corpuscular Volume 91.6 fl (80-100); Mean Platelet Volume 11.2 fl (7.4-10.4); Monocytes Absolute Auto 1.3 K/mm3 (0.1-0.6); Monocytes Percent Auto 9.9 % (2.6-8.5); Neutrophils Absolute Auto 10.2 K/mm3 (1.3-6.7); Platelet Count Result 207 k/mm3 (150-375); Red Blood Count 4.91 M/mm3 (4.6-6.20); Red Cell Distribution Width 13.4 % (11.5-14.5); White Blood Count 13.4 K/mm3 (4.5-10.0)
[2025-04-13 20:45] LABS: Magnesium 2.2 mg/dL (1.6-2.3)
[2025-04-13 20:47] LABS: INR 1.1; Prothrombin Time 14.4 Seconds (11.1-14.7)
[2025-04-13 20:48] LABS: Partial Thromboplastin Time 24.8 Seconds (22.3-36.8)
[2025-04-13] MEDS: HEPARIN SOD/D5W 100 UNITS/ML 25,000 UNITS/250 ML BAG 10 UNITS IV CONT (20:51)
[2025-04-13] MEDS: METOPROLOL TARTRATE 25 MG TABLET PO (21:50)
[2025-04-13 22:01] LABS: Phosphorus 5.1 mg/dL (2.5-4.5)
[2025-04-13 22:04] LABS: Add Urine Microscopic? YES; Appearance Urine Clear (Clear); Bacteria Urine None Seen /hpf; Bilirubin Urine Negative (Negative); Blood Urine Negative (Negative); Color Urine Yellow (Yellow); Glucose Urine UA 3+ mg/dL (Negative); Ketones Urine Negative (Negative); Leukocyte Esterase Ur Negative LEU/UL (Negative); Nitrate Urine Negative (Negative); Protein Urine 2+ mg/dL (Negative); RBC Urine 0-2 /hpf (0-2); Specific Grav Ur 1.024 (1.001-1.035); Squamous Epithelial Cell Urine None Seen /hpf (Few); Urobilinogen Urine 0.2 mg/dL (<2.0); WBC Urine 0-5 /hpf (0-3); pH Urine 5.5 (5.0-9.0)
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
--- NOTE | 2025-04-13 23:07 | ADMGEN ---
This patient, Roque Grider II, was admitted to Intensive Care Unit-9 on 04/13/25 at 2300. Patient/family oriented to hospital policies and general routines including ID bracelet, bed and alarms, visiting hours, pain management, procedures, bathroom and other care routines, personal items, smoking policy, room service/diet, and visiting hours. Information on how to activate the Rapid Response Team has been discussed. Patient/Family are encouraged to report perceived risks to care and to ask questions if they do not understand what they are told or what they should do.
[2025-04-14] VITALS (25 sets, daily range): BP systolic 91–138; BP diastolic 43–117; PULSE 67–92; RESP 8–22; TEMP 36.1–37; O2SAT 86–99
--- NOTE | 2025-04-14 | ECHO_ITS ---
Patient Info Name: Roque Grider Age: 54 years : 1970 Gender: Male Ht: 69 in Wt: 295 lbs BSA: 2.62 m2 HR: 81 bpm BP: 108 / 76 mmHg Technical Quality: Fair Exam Date: 04/14/2025 11:46 AM Patient Status: I Admit Date: 04/13/2025 Exam Type: CA echo dop color flow w con Complete two-dimensional, color flow and Doppler transthoracic echocardiogram is performed with contrast to opacify the left ventricle and to improve the deliniation of the left ventricle endocardial borders. Staff Referring Physician: Crys Thakkar DO Manufacturing Engineering Director: Natasha Zapata Attending Provider: Crys Thakkar DO Contrast/Agitated Saline Contrast/Ag. Saline: Definity Amount: 3.00 ml Administered By: Natasha Zapata Existing IV Access: Yes IV Access Condition: patent with no signs of infiltration Summary 1. Definity contrast administered improved wall motion interpretation. 2. Left ventricular chamber dimension is moderately enlarged. 3. Left ventricular systolic function is severely globally reduced, estimated at 30-35. 4. There is mild concentric increased left ventricular wall thickness. 5. The left ventricular diastolic function is grade III diastolic dysfunction. 6. E/e' 8 is minimally elevated. 7. Left atrial chamber dimension is moderately enlarged. 8. Right atrial chamber dimension is mildly enlarged. 9. There is mild mitral valve regurgitation. Left Ventricle E/e' 8 is minimally elevated. Left ventricular chamber dimension is moderately enlarged. Left ventricular systolic function is severely globally reduced, estimated at 30-35. There is mild concentric increased left ventricular wall thickness. The left ventricular diastolic function is grade III diastolic dysfunction. Definity contrast administered improved wall motion interpretation. Right Ventricle Right ventricular chamber dimension is normal. Right ventricular systolic function is normal and with normal TAPSE 1.8 cm. Left Atria Left atrial chamber dimension is moderately enlarged. Right Atria Right atrial chamber dimension is mildly enlarged. Aortic Valve The aortic valve is trileaflet. There is no aortic valve stenosis. There is no aortic valve regurgitation. Pulmonic Valve There is no pulmonic regurgitation. Mitral Valve There is no mitral valve stenosis. There is mild mitral valve regurgitation. Tricuspid Valve There is no tricuspid valve regurgitation. Pericardium/Pleural There is no pericardial effusion. Inferior Vena Cava Inferior vena cava is not well visualized. Aorta The aortic root size at the sinus of Valsalva is normal. Left Ventricular Outflow Tract Name Value Normal LVOT 2D LVOT Diameter 2.3 cm LVOT Doppler LVOT Peak Velocity 88 cm/s LVOT Peak Gradient 3 mmHg LVOT Mean Gradient 2 mmHg LVOT VTI 18 cm LVOT Stroke Volume 77 ml LVOT CO 6.2 l/min LVOT CI 2.4 l/min/m2 Pulmonic Valve Name Value Normal RVOT Doppler RVOT Peak Velocity 70 cm/s RVOT Peak Gradient 2 mmHg PV Doppler PV Peak Velocity 89 cm/s PV Peak Gradient 3 mmHg Mitral Valve Name Value Normal MV Diastolic Function MV E Peak Velocity 79 cm/s MV A Peak Velocity 34 cm/s MV E/A 2.3 MV Decel Time (PW) 134 ms MV Annular TDI MV E/e' (Septal) 12.6 MV E/e' (Lateral) 6.9 MV E/e' (Average) 9.7 Tricuspid Valve Name Value Normal Estimated PAP/RSVP RA Pressure 5 mmHg <=5 TV Annular TDI TV Lateral Shelbie s' Velocity 7.7 cm/s >=9.5 Aortic Valve Name Value Normal AV Doppler AV Peak Velocity 113 cm/s AV Peak Gradient 5 mmHg AV Area (Cont Eq Papo) 3.3 cm2 AV DI (Papo) 0.78 AV Regurgitation 2D LVOT Area 4.3 cm2 Ventricles Name Value Normal LV Dimensions 2D/MM LVOT Diameter 2.3 cm LV Fractional Shortening/Ejection Fraction 2D/MM LV Diastolic Volume (4C MOD) 156 ml LV EF (4C MOD) 39 % LV Diastolic Volume (2C MOD) 120 ml LV EF (2C MOD) 37 % LV Diastolic Volume (BP MOD) 144 ml 62-150 LV Diastolic Volume Index (BP MOD) 55 ml/m2 34-74 LV Systolic Volume (BP MOD) 88 ml 21-61 LV Systolic Volume Index (BP MOD) 34 ml/m2 11-31 LV EF (BP MOD) 38 % 52-72 LV Diastolic Length (4C) 9.6 cm LV Systolic Length (4C) 8.7 cm LV Stroke Volume (4C MOD) 60 ml Atria Name Value Normal LA Dimensions LA Volume (4C A-L) 93 ml LA Volume (BP A-L) 64 ml RA Dimensions RA Systolic Major [place] Length (4C) 4.9 cm 2.1-2.7 RA Area (4C) 13.8 cm2 <=18.0 Report Signatures
[2025-04-14 00:08] LABS: MRSA (PCR) DETECTED (NOT DETECTE)
[2025-04-14 04:12] LABS: Basophils Absolute Auto 0.1 K/mm3 (0.0-0.1); Basophils Percent Auto 0.7 % (0.2-1.2); Eosinophils Absolute Auto 0.2 K/mm3 (0-0.3); Eosinophils Percent Auto 1.6 % (0-4.4); Hematocrit 46.4 % (42.0-52.0); Hemoglobin 15.5 g/dL (14.0-18.0); Immature Granulocyte Absolute 0.04 K/mm3 (0.00-0.031); Immature Granulocyte Percent A 0.3 % (0-0.5); Lymphocytes Absolute Auto 3.11 K/mm3 (0.9-3.2); Lymphocytes Percent Auto 26.6 % (18.3-44.2); Mean Corpuscular HGB Conc 33.4 g/dl (32-36); Mean Corpuscular Hemoglobin 30.5 pg (26-34); Mean Corpuscular Volume 91.2 fl (80-100); Mean Platelet Volume 11.2 fl (7.4-10.4); Monocytes Percent Auto 8.7 % (2.6-8.5); Neutrophils Absolute Auto 7.3 K/mm3 (1.3-6.7); Neutrophils Percent Auto 62.1 % (45.5-73.1); Platelet Count Result 205 k/mm3 (150-375); Red Blood Count 5.09 M/mm3 (4.6-6.20); Red Cell Distribution Width 13.2 % (11.5-14.5); White Blood Count 11.7 K/mm3 (4.5-10.0)
[2025-04-14 04:25] LABS: Partial Thromboplastin Time 31.6 Seconds (22.3-36.8)
[2025-04-14 04:38] LABS: Anion Gap 8 mmol/L (4-12); Blood Urea Nitrogen 19 mg/dL (9-20); Calcium 9.4 mg/dL (8.4-10.2); Carbon Dioxide 24 mmol/L (22-30); Chloride 102 mmol/L (98-107); Estimated CRCL calculation 96 ml/min; Estimated Glomerular Filt Rate > 60; Glucose 186 mg/dL (65-110); Potassium 4.4 mmol/L (3.4-5.0); Sodium 134 mmol/L (137-145)
[2025-04-14] MEDS: HEPARIN SODIUM 5,000 UNITS/ML VIAL 4000 UNITS IV PUSH ×3 (04:48→18:46)
--- NOTE | 2025-04-14 05:26 | ECG_ITS ---
Test Date: 2025-04-14 05:40:58 Measurements Intervals [place] Rate: 87 P: 49 WI: 216 QRS: -32 QRSD: 113 T: -1 QT: 338 QTc: 408 Interpretive Statements SINUS RHYTHM WITH FIRST DEGREE AV BLOCK LEFT AXIS DEVIATION INTRAVENTRICULAR CONDUCTION DELAY NONSPECIFIC ST & T-WAVE ABNORMALITY- ANTEROLAT/INF LEADS BASELINE ARTIFACT- I, II, III, AVR, AVL, AVF, V4-V6 BORDERLINE ECG Compared to ECG 04/13/2025 20:50:53 NO SIGNIFICANT CHANGE Electronically Signed On 04-14-2025 07:25:46 CDT by Brent Larsen D.O.
[2025-04-14 05:27] LABS: Alveolar/Arterial O2 Gradient 132.6 mmHg; Base Excess ABG -1.4 mEq/l (+/-2.0); Carboxyhemoglobin 0.6 % THb (0-2.0); Fractional Inspired Oxygen 32 %; HCO3 ABG 23.2 mEq/l (22.0-26.0); Methemoglobin ABG 0.1 %THb (0-1.5); Oxygen Content ABG 19.6 %vol (16.0-22.0); PCO2 ABG 39.1 mmHg (35.0-45.0); PO2 FiO2 Ratio Arterial Blood 1.56 %; Total Hemoglobin 16.8 g/dL (12.0-18.0); pH ABG 7.391 (7.350-7.450)
[2025-04-14 05:30] LABS: Oxygen Saturation ABG 85.1 % (95.0-100.0); PO2 ABG 49.8 mmHg (80.0-100.0)
[2025-04-14 05:31] LABS: Device NASAL CANNULA; Modified Allen's Test Pass; Oxyhemoglobin 83.3 % THb (90.0-100.0); Site Drawn LEFT RADIAL
[2025-04-14 05:35] LABS: D Dimer 0.58 ug/mL (<0.48)
[2025-04-14] MEDS: FUROSEMIDE INJ 40 MG/4 ML VIAL IV PUSH ×2 (05:35→11:28)
--- NOTE | 2025-04-14 08:14 | PM.CNCAR ---
Assessment and Plan Assessment and plan (1) V tach: Code(s): I47.20 - Ventricular tachycardia, unspecified Status: Acute Assessment and Plan: Differential includes ACS, cardiomyopathy, or Flecainide induced. Last dose Flecainide 04/13/25. Stopped Flecainide. Monitor for recurrence, and if VT occurs, then start Amiodarone drip. Otherwise would like Flecainide to wash out for at least a week. On Metoprolol Tartate 25 mg BID, and heparin drip, aspirin. Hold off on statin given transaminitis. Will ultimately need Life Vest or ICD prior to discharge. Plan for C on Wednesday. (2) Elevated troponin: Code(s): R79.89 - Other specified abnormal findings of blood chemistry Status: Acute Assessment and Plan: Significant rise in troponin to peak 28. Differential includes ACS, VT. (3) Acute cardiogenic pulmonary edema: Code(s): I50.1 - Left ventricular failure, unspecified Status: Acute Assessment and Plan: Probably due to recurrence of cardiomyopathy as he had on 11/30/23, that then resolved. Diurese with Lasix as needed. Obtain echo. (4) Paroxysmal atrial flutter: Code(s): I48.92 - Unspecified atrial flutter Status: Acute Assessment and Plan: Back in sinus rhythm after EMS defibrillated for unstable VT. (5) Essential hypertension: Code(s): I10 - Essential (primary) hypertension Status: Acute Assessment and Plan: Stable. (6) Transaminitis: Code(s): R74.01 - Elevation of levels of liver transaminase levels Status: Acute Assessment and Plan: Probably due to VT. Monitor. History of Present Illness History of Present Illness Consult date/time: 04/14/25 08:14 Reason For Visit: V tach Narrative: 54 yr old man who is my regular cardiology patient and a patient of Charissa Noonan presents to ER after cardiac arrest. He has a history of PAF, paroxysmal atrial flutter, systolic dysfunction that had resolved, DM, hypertension, LUIS on CPAP. is at bedside. I saw patient yesterday in my office on f/u from ER the day before when he presented after a syncopal episode. He went home and while reclining his noted he became pale and sob, and she called EMS. When EMS arrived they determined he was in unstable VT and shocked him, restoring sinus rhythm, and brought him to ER. Overnight per the hospitalist, he was desaturating and he was advanced to CPAP, and CT chest showed significant pulmonary edema. He was given Lasix and had good UOP. Currently he is feeling great, thinking he can go home. Denies chest pain with the event or currently. Normally, he can walk several blocks only at leisurely pace without any problems. Denies chest pain, orthopnea, PND, edema, dizziness, palpitations. 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 Reports in last few weeks he noted feeling weaker especially carrying something he can't walk very far. Cardiovascular Procedures Echo/MUGA:: 04/25/24 Echo: EF 60-65%, mild LAE, trace TR. 11/30/23 Echo: EF 30-35%, mild LVH, grade I diastolic dysfunction, trace MR/TR. Electrophysiology:: 04/13/25 EKG: Atrial flutter at 115 bpm, PRWP, QTc 432 ms. 02/28/25 EKG: Atrial fibrillation, delayed precordial R/S transition. 11/30/23 EKG: Sinus rhythm, inferior infarct, age indeterminate. 11/29/23 EKG: Atrial flutter at 127 bpm. 12/01/23 6 days event monitor: Sinus rhythm, HR range 50-118 bpm; average 67, no PAC, 1% PVC. Stress Tests:: 03/29/25 Lexiscan myoview: Negative. Review of Systems Review of Systems: All systems reviewed & are unremarkable except as noted in HPI and below Constitutional: Constitutional: Reports as per HPI, Denies chills and Denies fever(s) Cardiovascular: Cardiovascular: Reports as per HPI, Denies chest pain and Denies irregular heart rhythm Respiratory: Respiratory: Reports as per HPI and Reports dyspnea Gastrointestinal: Gastrointestinal: Reports as per HPI and Denies abdominal pain Genitourinary: Genitourinary: Reports as per HPI and Denies dysuria Musculoskeletal: Musculoskeletal: Reports as per HPI Neurologic: Reports as per HPI, Reports dizziness and Reports syncope [facility] Past Medical History Medical History (Updated 04/14/25 @ 07:09 by Crys Thakkar DO) LUIS (obstructive sleep apnea) On auto PAP Hepatic steatosis Essential hypertension Diabetes mellitus PAF (paroxysmal atrial fibrillation) Paroxysmal atrial flutter BPH (benign prostatic hyperplasia) Arthritis Surgical History Surgical History Hx of tonsillectomy Family History Family History Father Cerebrovascular accident Other Colon cancer Social History Social History (Updated 04/14/25 @ 05:04 by Crys Thakkar DO) Social History: He lives with his of 31 years. 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 He smoked 1.5 packs of cigarettes per day for about 15 years and quit smoking in 1999. He drinks alcohol about once per week. He denies illicit substance use. Code status: Full code Surrogate decision maker: Smoking packs per day: 1.5 Smoking cigarettes per day: 30.0 Years smoked: 15 Smoking pack-years: 22.50 Smoking status: Former smoker Tobacco type: cigarettes Second hand tobacco smoke exposure: Yes Smoking end date: 10/25/99 Additional smoking assessment comments: Smoked about 1PPD for 15 years Alcohol intake: never Drinks per week: 3 Alcohol use details: Drinks about 1-3 per week Substance use: never Substance use type: does not use Do You Feel Safe in your Home?: Yes Lack of Transportation: No Lack of Food: Never True Current Housing: I Have Housing Concerned About Future Housing: No Difficulty Paying Gas/Electric Bills: Decline to Answer Difficulty Paying for Meds: Decline to Answer Currently Unemployed: No Education: Trade/Vocational Certificate Difficulty w/ Childcare or Family Care: Decline to Answer Living arrangements: with family Additional living arrangements comments: Lives in [place], [place] with his and children. 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 Gender identity (if verbalized by the patient): Male Spiritual care concerns: No Meds Home Medications and Allergies Home Medications ?Medication ?Instructions ?Recorded ?Confirmed ?Type metformin 500 mg tablet 500 mg PO BID #180 tabs 09/26/24 04/13/25 Rx apixaban 5 mg tablet (Eliquis) See Rx Instructions .Route 11/29/24 04/13/25 Rx .COMPLEX #60 tabs tamsulosin 0.4 mg capsule 0.4 mg PO DAILY #90 caps 01/02/25 04/13/25 Rx sertraline 50 mg tablet 50 mg PO DAILY #90 tabs 02/20/25 04/13/25 Rx metoprolol succinate 100 mg 100 mg PO QAM 02/28/25 04/13/25 History tablet,extended release 24 hr dapagliflozin propanediol 10 mg 10 mg PO DAILY #90 tabs 03/20/25 04/13/25 Rx tablet (Farxiga) flecainide 100 mg tablet 100 mg PO Q12H #60 tabs 03/29/25 04/13/25 Rx semaglutide 0.25 mg or 0.5 mg (2 0.25 mg (0.368 mL) subcut WEEKLY 04/02/25 04/13/25 Rx mg/3 mL) subcutaneous pen injector #3 mL (Ozempic) semaglutide 1 mg/dose (4 mg/3 mL) 1 mg (0.75 mL) subcut WEEKLY #3 mL 04/02/25 04/13/25 Rx subcutaneous pen injector (Ozempic) diltiazem HCl 30 mg tablet 30 mg PO BID #60 tabs 04/13/25 04/13/25 Rx Allergies Allergy/AdvReac Type Severity Reaction Status Date / Time No Known Allergies Allergy Unknown Verified 04/12/25 14:58 Vital Signs Vital Signs - 24 hr 04/13/25 17:41 04/13/25 17:58 04/13/25 18:01 Temperature 97.9 F Pulse Rate 89 92 89 Respiratory Rate 18 28 H 23 H Blood Pressure 97/69 L 97/69 L 118/78 Pulse Oximetry 100 96 100 Oxygen Delivery Room Air Oxygen Flow Rate Fraction of Inspired Oxygen 04/13/25 18:16 04/13/25 18:31 04/13/25 18:46 Temperature Pulse Rate 91 96 95 Respiratory Rate 23 H 21 H 20 Blood Pressure 114/84 137/80 125/84 Pulse Oximetry 100 99 98 Oxygen Delivery Oxygen Flow Rate Fraction of Inspired Oxygen 04/13/25 21:10 04/13/25 21:50 04/13/25 22:17 Temperature Pulse Rate 93 94 91 Respiratory Rate 17 17 Blood Pressure 138/85 139/100 H Pulse Oximetry 95 95 Oxygen Delivery Oxygen Flow Rate Fraction of Inspired Oxygen 04/13/25 22:49 04/13/25 23:07 04/14/25 00:00 Temperature 97.8 F Pulse Rate 95 74 92 Respiratory Rate 17 14 Blood Pressure 135/97 H 138/91 H Pulse Oximetry 95 92 Oxygen Delivery Oxygen Flow Rate Fraction of Inspired Oxygen 04/14/25 00:00 04/14/25 00:00 04/14/25 00:01 Temperature Pulse Rate 92 92 Respiratory Rate 13 Blood Pressure Pulse Oximetry 94 93 Oxygen Delivery Room Air Room Air Oxygen Flow Rate Fraction of Inspired Oxygen 04/14/25 01:47 04/14/25 02:00 04/14/25 02:00 Temperature Pulse Rate 89 89 89 Respiratory Rate 19 22 H Blood Pressure 128/69 Pulse Oximetry 92 88 L Oxygen Delivery Autopap Oxygen Flow Rate Fraction of Inspired Oxygen 04/14/25 02:00 04/14/25 02:22 04/14/25 02:45 Temperature Pulse Rate Respiratory Rate Blood Pressure Pulse Oximetry 86 L 90 87 L Oxygen Delivery CPAP CPAP CPAP Oxygen Flow Rate 1 3 Fraction of Inspired Oxygen 04/14/25 04:00 04/14/25 04:00 04/14/25 04:00 Temperature 98.0 F Pulse Rate 90 90 86 Respiratory Rate 12 12 Blood Pressure 119/101 H Pulse Oximetry 89 L 89 L Oxygen Delivery CPAP Oxygen Flow Rate 3 Fraction of Inspired Oxygen 04/14/25 05:46 04/14/25 06:00 04/14/25 06:00 Temperature Pulse Rate 86 84 84 Respiratory Rate 20 18 Blood Pressure 137/117 H Pulse Oximetry 97 99 Oxygen Delivery BiPAP Oxygen Flow Rate Fraction of Inspired Oxygen 04/14/25 07:58 Temperature 97.2 F L Pulse Rate 80 Respiratory Rate 8 L Blood Pressure 119/74 Pulse Oximetry 96 Oxygen Delivery Oxygen Flow Rate Fraction of Inspired Oxygen Exam Const: General: cooperative, healthy appearing and comfortable Resp: Auscultation: clear to auscultation bilaterally, no crackles, no rales, no rhonchi and no wheezes Cardio: Rate: regular rate Rhythm: regular rhythm Heart sounds: no murmurs Peripheral pulses: dorsalis pedis present GI: GI Palp: No abdominal tenderness and Yes Soft to palpation Neuro: General: oriented to person, oriented to place and oriented to time Extrem: Right lower extremity: no edema Left lower extremity: no edema Results Labs and Meds 04/14/25 04:01 04/14/25 04:01 Lab results: Cardiac Enzymes 04/13/25 04/13/25 04/13/25 Range/Units 19:06 20: 23:48 AST 276 H (17-59) U/L Troponin I 8.510 H* 18.800 H* D 28.100 H* D (0.000-0.034) ng/mL 04/14/25 Range/Units 04:01 AST (17-59) U/L Troponin I 24.800 H* (0.000-0.034) ng/mL Coagulation 04/13/25 04/13/25 04/14/25 Range/Units 19:06 20: 04:01 PT 14.2 14.4 (11.1-14.7) Seconds APTT 25.8 24.8 31.6 (22.3-36.8) Seconds CBC 04/13/25 04/13/25 04/14/25 Range/Units 19:04 13: 04:01 WBC 13.4 H 13.4 H 11.7 H (4.5-10.0) K/mm3 RBC 5.32 4.91 5.09 (4.6-6.20) M/mm3 Hgb 16.1 14.9 15.5 (14.0-18.0) g/dL Hct 49.1 45.0 46.4 (42.0-52.0) % Plt Count 210 207 205 (150-375) k/mm3 Lymph # (Auto) 1.73 1.75 3.11 (0.9-3.2) K/mm3 [place] # (Auto) 1.0 H 1.3 H 1.0 H (0.1-0.6) K/mm3 Eos # (Auto) 0.0 0.0 0.2 (0-0.3) K/mm3 Baso # (Auto) 0.1 0.1 0.1 (0.0-0.1) K/mm3 Comprehensive Metabolic Panel 04/13/25 04/14/25 Range/Units 19:06 04:01 Sodium 139 134 L (137-145) mmol/L Potassium 4.4 4.4 (3.4-5.0) mmol/L Chloride 104 102 (98-107) mmol/L Carbon Dioxide 18 L 24 (22-30) mmol/L BUN 23 H 19 (9-20) mg/dL Creatinine 1.37 H 1.04 (0.7-1.3) mg/dL Glucose 278 H 186 H (65-110) mg/dL Calcium 9.9 9.4 (8.4-10.2) mg/dL AST 276 H (17-59) U/L ALT 161 H (6-50) U/L Alkaline Phosphatase 46 (38-126) U/L Total Protein 8.4 H (6.3-8.2) g/dL Albumin 4.7 (3.5-5.1) g/dL Intake and Output 04/13/25 04/14/25 04/14/25 23:59 07:59 15:59 Intake Total 23.2 55.8 Output Total 950 900 Balance 23.2 -894.2 -900 Intake: IV 23.2 55.8 Heparin Sod/D5w 100 Units/ml 25 23.2 55.8 ,000 units In 250 ml @ 1,400 UNITS/HR 14 mls/hr IV CONT . [id number] [facility] Rx#:[id number] Output: Urine 950 900 Patient Weight 04/14/25 23:59 Weight 132.9 kg
[2025-04-14 08:51] LABS: Hemoglobin A1C 8.6 % (<5.7)
[2025-04-14] MEDS: MUPIROCIN 2% OINT 22 GM TUBE 1 APPLIC EACH NARE ×2 (09:04→21:27)
[2025-04-14] MEDS: SERTRALINE HCL 50 MG TABLET PO (09:04)
[2025-04-14] MEDS: TAMSULOSIN HCL 0.4 MG CAPSULE PO (09:04)
[2025-04-14] MEDS: ASPIRIN 81 MG ENTERIC TABLET PO (09:04)
[2025-04-14] MEDS: METOPROLOL TARTRATE 25 MG TABLET PO ×2 (09:04→21:26)
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
[2025-04-14 09:23] LABS: Glucose Point of Care 198 mg/dl (65-105)
[2025-04-14 11:18] LABS: Partial Thromboplastin Time 41.3 Seconds (22.3-36.8)
[2025-04-14 11:46] LABS: Glucose Point of Care 158 mg/dl (65-105)
[2025-04-14] MEDS: PERFLUTREN LIPID MICROSPHERES 1.5 ML VIAL DILUTED TO 10 ML TOTAL VOLUME IV PUSH (12:00)
--- NOTE | 2025-04-14 12:22 | IVDEFINITY ---
Prior to administration of IV Definity the patient was educated on the risks and benefits of the imaging enhancing agent including potential adverse side effects. The patient verbalized understanding. Allergies were verified. No exclusion criteria were identified and at least one of the following inclusion criteria were met: 1) physician request, 2) patient technically difficult to image (per the [place] [employer] Echocardi[employer] guidelines of two or more segments not discernable within the apical view), or 3) questionable left ventricular function. ?
--- NOTE | 2025-04-14 15:05 | PC.NURSE ---
This patient, Roque Grider II, was received from ICU 9 on 04/14/25 at 1422. Patient/family oriented to unit policies and routines. Patient and family's questions answered. Patient is resting in bed with no complaints or concerns at this time. Call light in reach. Bed low and locked. Will continue to monitor. Mere Nassar RN
[2025-04-14 16:05] LABS: Glucose Point of Care 215 mg/dl (65-105)
[2025-04-14 17:40] LABS: Partial Thromboplastin Time 55.7 Seconds (22.3-36.8)
[2025-04-14 18:45] LABS: Glucose Point of Care 177 mg/dl (65-105)
[2025-04-14] MEDS: HEPARIN SOD/D5W 100 UNITS/ML 25,000 UNITS/250 ML BAG 20 UNITS IV CONT (19:20)
[2025-04-14] MEDS: SACUBITRIL/VALSARTAN 24-26 MG TABLET 1 TAB PO (21:27)
[2025-04-14 23:45] LABS: Partial Thromboplastin Time 89.5 Seconds (22.3-36.8)
[2025-04-15] VITALS (25 sets, daily range): BP systolic 93–137; BP diastolic 56–79; PULSE 54–80; RESP 17–20; TEMP 36.6–36.8; O2SAT 92–99
[2025-04-15 00:30] LABS: Glucose Point of Care 163 mg/dl (65-105)
[2025-04-15] MEDS: HEPARIN SOD/D5W 100 UNITS/ML 25,000 UNITS/250 ML BAG 20 UNITS IV CONT (03:09)
[2025-04-15 05:49] LABS: Hematocrit 49.3 % (42.0-52.0); Hemoglobin 16.2 g/dL (14.0-18.0); Mean Corpuscular HGB Conc 32.9 g/dl (32-36); Mean Corpuscular Hemoglobin 30.1 pg (26-34); Mean Corpuscular Volume 91.5 fl (80-100); Mean Platelet Volume 11.2 fl (7.4-10.4); Platelet Count Result 197 k/mm3 (150-375); Red Blood Count 5.39 M/mm3 (4.6-6.20); Red Cell Distribution Width 13.3 % (11.5-14.5)
[2025-04-15 06:08] LABS: Alanine Aminotransferase 112 U/L (6-50); Albumin Level 4.5 g/dL (3.5-5.1); Alkaline Phosphatase 48 U/L (38-126); Anion Gap 10 mmol/L (4-12); Aspartate Amino Transferase 157 U/L (17-59); Bilirubin,Total 1.1 mg/dL (0.2-1.3); Blood Urea Nitrogen 16 mg/dL (9-20); Calcium 9.5 mg/dL (8.4-10.2); Carbon Dioxide 26 mmol/L (22-30); Chloride 100 mmol/L (98-107); Estimated CRCL calculation 113 ml/min; Estimated Glomerular Filt Rate > 60; Glucose 183 mg/dL (65-110); Magnesium 2.1 mg/dL (1.6-2.3); Phosphorus 3.3 mg/dL (2.5-4.5); Potassium 4.1 mmol/L (3.4-5.0); Sodium 136 mmol/L (137-145); Total Protein 8.2 g/dL (6.3-8.2)
[2025-04-15 06:13] LABS: Partial Thromboplastin Time 54.4 Seconds (22.3-36.8)
[2025-04-15] MEDS: HEPARIN SODIUM 5,000 UNITS/ML VIAL 4000 UNITS IV PUSH (06:34)
--- NOTE | 2025-04-15 08:16 | PM.PNCARD ---
Progress Note: A&P Assessment and Plan (1) V tach: Code(s): I47.20 - Ventricular tachycardia, unspecified Status: Acute Assessment and Plan: Differential includes ACS, cardiomyopathy, or Flecainide induced. Last dose Flecainide 04/13/25. Stopped Flecainide. Monitor for recurrence, and if VT occurs, then start Amiodarone drip. Otherwise would like Flecainide to wash out for at least a week. On Metoprolol Tartate 25 mg BID, and heparin drip, aspirin. Hold off on statin given transaminitis. Will ultimately need Life Vest or ICD prior to discharge. Plan for LHC on Wednesday. Risks/benefits/alternative to LHC discuss with patient and he is agreeable to it. (2) Elevated troponin: Code(s): R79.89 - Other specified abnormal findings of blood chemistry Status: Acute Assessment and Plan: Significant rise in troponin to peak 28. Differential includes ACS, VT. (3) Acute cardiogenic pulmonary edema: Code(s): I50.1 - Left ventricular failure, unspecified Status: Acute Assessment and Plan: Recurrence of cardiomyopathy as he had on 11/30/23 which had resolved. Diurese with Lasix as needed. (4) Paroxysmal atrial flutter: Code(s): I48.92 - Unspecified atrial flutter Status: Acute Assessment and Plan: Back in sinus rhythm after EMS defibrillated for unstable VT. (5) Essential hypertension: Code(s): I10 - Essential (primary) hypertension Status: Acute Assessment and Plan: Stable. (6) Transaminitis: Code(s): R74.01 - Elevation of levels of liver transaminase levels Status: Acute Assessment and Plan: Improving. Probably due to VT. Monitor. (7) Systolic dysfunction: Code(s): I51.9 - Heart disease, unspecified Status: Acute Assessment and Plan: On Metoprolol, Jardiance. Start Entresto 24-26 mg BID, and Spironolactone 12.5 mg daily. Will need Life Vest or ICD upon discharge. Subjective Date/time seen: 04/15/25 08:16 Interval history: Denies chest pain, sob. Exam Const: General: cooperative, healthy appearing and comfortable Orientation/consciousness: oriented to person, oriented to place and oriented to time Resp: Auscultation: clear to auscultation bilaterally, no crackles, no rales, no rhonchi and no wheezes Cardio: Rate: regular rate Rhythm: regular rhythm Heart sounds: no murmurs Peripheral pulses: dorsalis pedis present Neuro: General: oriented to person, oriented to place and oriented to time Extrem: Right lower extremity: no edema Left lower extremity: no edema Objective Data Vital Signs Vital Signs: Vital Signs - 24 hr 04/14/25 08:47 04/14/25 09:04 04/14/25 10:00 Temperature Pulse Rate 76 68 67 Respiratory Rate 18 Blood Pressure Pulse Oximetry 98 Oxygen Delivery BiPAP Oxygen Flow Rate 04/14/25 10:00 04/14/25 11:39 04/14/25 12:00 Temperature 97 F L Pulse Rate 77 79 Respiratory Rate 13 18 Blood Pressure 109/70 108/76 Pulse Oximetry 96 97 93 Oxygen Delivery Nasal Cannula Oxygen Flow Rate 4 04/14/25 12:00 04/14/25 12:00 04/14/25 14:00 Temperature Pulse Rate 78 77 Respiratory Rate 18 Blood Pressure 114/75 Pulse Oximetry 93 94 Oxygen Delivery Nasal Cannula Oxygen Flow Rate 4 04/14/25 16:00 04/14/25 16:00 04/14/25 16:06 Temperature 98.3 F Pulse Rate 73 80 Respiratory Rate 18 Blood Pressure 91/43 L Pulse Oximetry 95 95 Oxygen Delivery Nasal Cannula Oxygen Flow Rate 4 04/14/25 18:00 04/14/25 19:57 04/14/25 20:00 Temperature 98.6 F Pulse Rate 80 76 77 Respiratory Rate 17 Blood Pressure 111/65 Pulse Oximetry 97 Oxygen Delivery Oxygen Flow Rate 04/14/25 20:58 04/14/25 21:26 04/14/25 22:00 Temperature Pulse Rate 76 80 69 Respiratory Rate 17 Blood Pressure Pulse Oximetry 97 Oxygen Delivery Nasal Cannula Oxygen Flow Rate 3 04/15/25 00:00 04/15/25 00:00 04/15/25 00:40 Temperature 98.0 F Pulse Rate 70 67 70 Respiratory Rate 17 17 Blood Pressure 117/65 Pulse Oximetry 99 99 Oxygen Delivery Nasal Cannula Oxygen Flow Rate 3 04/15/25 01:30 04/15/25 02:00 04/15/25 04:00 Temperature 98.2 F Pulse Rate 63 62 63 Respiratory Rate 20 18 Blood Pressure 137/79 Pulse Oximetry 95 97 Oxygen Delivery Nasal Cannula Oxygen Flow Rate 2 04/15/25 04:00 04/15/25 04:00 04/15/25 04:02 Temperature Pulse Rate 63 61 Respiratory Rate 18 Blood Pressure Pulse Oximetry 97 97 Oxygen Delivery Nasal Cannula Nasal Cannula Oxygen Flow Rate 2 2 04/15/25 06:00 04/15/25 07:59 Temperature 97.8 F Pulse Rate 56 L 67 Respiratory Rate 18 Blood Pressure 114/66 Pulse Oximetry 96 Oxygen Delivery Oxygen Flow Rate Intake/Output Intake/Output: Intake & Output 04/12/25 04/13/25 04/14/25 04/15/25 23:59 23:59 23:59 23:59 Intake Total 23.2 1228.5 143.4 Output Total 3950 305 Balance 23.2 -2721.5 -161.6 Meds/Results Medications: Active Medications Generic Name Dose Route Start Last Admin Trade Name Freq PRN Reason Stop Dose Admin Aspirin 81 mg 04/14/25 09:00 04/14/25 09:04 Aspirin 81 Mg Enteric Tablet PO 81 mg QAM GABBY Administration Dextrose 12.5 gm 04/14/25 08:16 Dextrose 50% 25 Gm/50 Ml Syringe IV PUSH PRN PRN Hypoglycemia Protocol Empagliflozin 10 mg 04/14/25 09:00 04/14/25 09:04 Empagliflozin 10 Mg Tablet BY MOUTH Not Given DAILY GABBY Glucagon 1 mg 04/14/25 08:16 Glucagon For Inj 1 Mg Vial IM PRN PRN Hypoglycemia Protocol Glucose 15 gm 04/14/25 08:16 Glucose Oral Gel 15 Gm Of Glucse In 37.5 Gm Tube PO PRN PRN Hypoglycemia Protocol Heparin Sodium (Porcine) 4,000 units 04/13/25 19:49 04/15/25 06:34 Heparin Sodium 5,000 Units/Ml Vial IV PUSH 4,000 units PRN PRN Administration aPTT less than 55 seconds Heparin Sodium (Porcine) 4,000 units 04/13/25 19:49 04/14/25 18:46 Heparin Sodium 5,000 Units/Ml Vial IV PUSH 4,000 units PRN PRN Administration aPTT 55 - 70 seconds Heparin Sodium/Dextrose 25,000 units in 250 mls @ 24 mls/hr 04/13/25 19:50 04/15/25 08:12 Heparin Sodium/D5w 100 Units/Ml IV CONT Not Given .[id number] GABBY Protocol 2,400 UNITS/HR Dextrose 1,000 mls @ 100 mls/hr 04/14/25 08:16 Dextrose 5% 1,000 Ml IVPB PRN PRN Hypoglycemia Protocol Insulin Aspart 3 - 6 units 04/14/25 12:00 04/15/25 06:15 Insulin Aspart (*Bkc) 100 Units/Ml SUB-Q Not Given Q6HR GABBY Protocol Metformin HCl 500 mg 04/14/25 09:00 04/14/25 09:04 Metformin Hcl 500 Mg Tablet PO Not Given BID GABBY Metoprolol Tartrate 25 mg 04/13/25 21:00 04/14/25 21:26 Metoprolol Tartrate 25 Mg Tablet PO 25 mg Q12HR GABBY Administration Mupirocin 1 applic 04/14/25 09:00 04/14/25 21:27 Mupirocin 2% Oint 22 Gm Tube EACH NARE 04/18/25 21:01 1 applic Q12HR GABBY Administration Sacubitril/Valsartan 1 tab 04/14/25 21:00 04/14/25 21:27 Sacubitril/Valsartan 24-26 Mg Tablet PO 1 tab Q12HR GABBY Administration Sertraline HCl 50 mg 04/14/25 09:00 04/14/25 09:04 Sertraline Hcl 50 Mg Tablet PO 50 mg DAILY GABBY Administration Tamsulosin HCl 0.4 mg 04/14/25 09:00 04/14/25 09:04 Tamsulosin Hcl 0.4 Mg Capsule PO 0.4 mg DAILY GABBY Administration Radiology Results: ITS Impressions Chest CTA 04/14/25 07:04 IMPRESSION: 1. Mild bilateral pulmonary edema with very small bilateral pleural effusions. Chest X-Ray 04/14/25 07:25 IMPRESSION: 1. Opacities in bilateral mid and lower lung zones most consistent with mild pulmonary edema. Labs Labs: Laboratory Results - last 24 hr 04/14/25 04/14/25 04/14/25 04:01 09:07 10:58 WBC RBC Hgb Hct MCV MCH MCHC RDW Plt Count MPV APTT 41.3 H Sodium Potassium Chloride Carbon Dioxide Anion Gap BUN Creatinine Estim Creat Clear Calc Estimated GFR Glucose POC Capillary Glucose 198 H Hemoglobin A1c 8.6 H Calcium Phosphorus Magnesium Total Bilirubin AST ALT Alkaline Phosphatase Total Protein Albumin 06/04/14/25 04/14/25 11:29 16:02 17:24 WBC RBC Hgb Hct MCV MCH MCHC RDW Plt Count MPV APTT 55.7 H Sodium Potassium Chloride Carbon Dioxide Anion Gap BUN Creatinine Estim Creat Clear Calc Estimated GFR Glucose POC Capillary Glucose 158 H 215 H Hemoglobin A1c Calcium Phosphorus Magnesium Total Bilirubin AST ALT Alkaline Phosphatase Total Protein Albumin 04/14/25 04/14/25 04/15/25 18:40 23:25 00:26 WBC RBC Hgb Hct MCV MCH MCHC RDW Plt Count MPV APTT 89.5 H Sodium Potassium Chloride Carbon Dioxide Anion Gap BUN Creatinine Estim Creat Clear Calc Estimated GFR Glucose POC Capillary Glucose 177 H 163 H Hemoglobin A1c Calcium Phosphorus Magnesium Total Bilirubin AST ALT Alkaline Phosphatase Total Protein Albumin 04/15/25 05:30 WBC 9.0 RBC 5.39 Hgb 16.2 Hct 49.3 MCV 91.5 MCH 30.1 MCHC 32.9 RDW 13.3 Plt Count 197 MPV 11.2 H APTT 54.4 H Sodium 136 L Potassium 4.1 Chloride 100 Carbon Dioxide 26 Anion Gap 10 BUN 16 Creatinine 0.87 Estim Creat Clear Calc 113 Estimated GFR > 60 Glucose 183 H POC Capillary Glucose Hemoglobin A1c Calcium 9.5 Phosphorus 3.3 Magnesium 2.1 Total Bilirubin 1.1 AST 157 H ALT 112 H Alkaline Phosphatase 48 Total Protein 8.2 Albumin 4.5
[2025-04-15] MEDS: SACUBITRIL/VALSARTAN 24-26 MG TABLET 1 TAB PO ×2 (09:03→20:55)
[2025-04-15] MEDS: METOPROLOL TARTRATE 25 MG TABLET PO ×2 (09:05→20:54)
[2025-04-15] MEDS: SPIRONOLACTONE 12.5 MG TABLET PO (09:06)
[2025-04-15] MEDS: FUROSEMIDE 20 MG TABLET PO (09:06)
[2025-04-15] MEDS: TAMSULOSIN HCL 0.4 MG CAPSULE PO (09:06)
[2025-04-15] MEDS: ASPIRIN 81 MG ENTERIC TABLET PO (09:06)
[2025-04-15] MEDS: MUPIROCIN 2% OINT 22 GM TUBE 1 APPLIC EACH NARE ×2 (09:06→20:55)
[2025-04-15] MEDS: SERTRALINE HCL 50 MG TABLET PO (09:06)
[2025-04-15] MEDS: ACETAMINOPHEN 325 MG TABLET PO (09:53)
[2025-04-15 11:41] LABS: Glucose Point of Care 170 mg/dl (65-105)
--- NOTE | 2025-04-15 12:03 | PM.IMPN ---
Progress Note: A&P Assessment and Plan (1) Acute hypoxic respiratory failure: Code(s): J96.01 - Acute respiratory failure with hypoxia Status: Acute Assessment and Plan: Acute Respiratory failure secondary to pulmonary edema from V-tach and cardiomyopathy s/p BiPAP now on 2 liters oxygen Continue lasix 20mg daily per cards CT scan reviewed (2) V tach: Code(s): I47.20 - Ventricular tachycardia, unspecified Status: Acute Assessment and Plan: Patient presented with an episode of V-tach in patient with history of atrial flutter RVR and on flecainide diltiazem metoprolol and Eliquis Negative stress test 2 weeks ago Elevated troponin with no ST elevation on EKG Patient seen by Cardiology and case discussed with Dr. Graf Planned to get echocardiogram today and cardiac catheterization on Wednesday Continue heparin drip, metoprolol, aspirin Diuresis Hold statin due to elevated LFTs at this time. Telemetry monitoring If episodes of V-tach or a flutter reoccurs patient will be started on amiodarone infusion. 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 Plan DVT prophylaxis -heparin drip Nutrition - npo Code Status - Full Code Subjective Date/time seen: 04/15/25 12:03 Interval history: COmfortable at bedside Review of Systems Review of Systems: 12 systems were reviewed with pertinent positives and negatives per HPI. Except as documented in the HPI, all other systems were reviewed and are negative. ROS unobtainable: Yes unobtainable due to medical condition Exam Narrative: General: Pt is alert awake and in NAD Lungs/Chest: Trachea central Clear BS B/L, No crackles or wheezing. Cardiac: RRR. Normal S1 S2. No murmurs Circulation: Pedal pulses are intact and symmetrical. Abdomen: Normal bowel sounds.Obese. Soft. NT. ND. Extremities: No clubbing, cyanosis or edema. Warm : Lee in place Neurologic: Follows commands. Moves all 4 extremities PERRL AO x3 Skin: No Rash, several tattoos on the skin Const: Other: Morbidly obese, no acute distress, appears older than stated age HENMT: Other: Mucous membranes are moist, no oral pharyngeal erythema, crowded posterior oropharynx, head is normocephalic atraumatic Eyes: Other: Pupils are equal and reactive, no scleral icterus, no conjunctival pallor Neck: Other: Large neck circumference, no JVD Resp: Other: Clear to auscultation bilaterally, no increased work of breathing Cardio: Other: Regular rate, regular rhythm, 2+ bilateral radial pedal pulses GI: Other: Obese, soft, nontender, no organomegaly Skin: Other: No jaundice, no pallor Neuro: Other: Alert oriented, speech is clear, no facial asymmetry, extraocular movements intact Extrem: Other: No clubbing, cyanosis or edema, moves all extremities equally Psych: Other: Mildly anxious, otherwise pleasant and cooperative, judgment and insight intact Objective Data Vital Signs Vital Signs: Vital Signs - 24 hr 04/14/25 14:00 04/14/25 16:00 04/14/25 16:00 Temperature Pulse Rate 77 73 Respiratory Rate 18 Blood Pressure 114/75 Pulse Oximetry 94 95 Oxygen Delivery Nasal Cannula Oxygen Flow Rate 4 04/14/25 16:06 04/14/25 18:00 04/14/25 19:57 Temperature 98.3 F 98.6 F Pulse Rate 80 80 76 Respiratory Rate 18 17 Blood Pressure 91/43 L 111/65 Pulse Oximetry 95 97 Oxygen Delivery Oxygen Flow Rate 04/14/25 20:00 04/14/25 20:58 04/14/25 21:26 Temperature Pulse Rate 77 76 80 Respiratory Rate 17 Blood Pressure Pulse Oximetry 97 Oxygen Delivery Nasal Cannula Oxygen Flow Rate 3 04/14/25 22:00 04/15/25 00:00 04/15/25 00:00 Temperature 98.0 F Pulse Rate 69 70 67 Respiratory Rate 17 Blood Pressure 117/65 Pulse Oximetry 99 Oxygen Delivery Oxygen Flow Rate 04/15/25 00:40 04/15/25 01:30 04/15/25 02:00 Temperature Pulse Rate 70 63 62 Respiratory Rate 17 20 Blood Pressure Pulse Oximetry 99 95 Oxygen Delivery Nasal Cannula Nasal Cannula Oxygen Flow Rate 3 2 04/15/25 04:00 04/15/25 04:00 04/15/25 04:00 Temperature 98.2 F Pulse Rate 63 63 61 Respiratory Rate 18 18 Blood Pressure 137/79 Pulse Oximetry 97 97 Oxygen Delivery Nasal Cannula Oxygen Flow Rate 2 04/15/25 04:02 04/15/25 06:00 04/15/25 07:59 Temperature 97.8 F Pulse Rate 56 L 67 Respiratory Rate 18 Blood Pressure 114/66 Pulse Oximetry 97 96 Oxygen Delivery Nasal Cannula Oxygen Flow Rate 2 04/15/25 08:00 04/15/25 09:05 04/15/25 09:55 Temperature Pulse Rate 62 73 Respiratory Rate Blood Pressure Pulse Oximetry 96 Oxygen Delivery Room Air Oxygen Flow Rate 04/15/25 10:00 04/15/25 10:22 04/15/25 11:48 Temperature 97.8 F Pulse Rate 67 80 Respiratory Rate 20 Blood Pressure 93/60 L Pulse Oximetry 95 94 Oxygen Delivery Room Air Oxygen Flow Rate Intake/Output Intake/Output: Intake & Output 04/12/25 04/13/25 04/14/25 04/15/25 23:59 23:59 23:59 23:59 Intake Total 23.2 1228.5 383.4 Output Total 3950 305 Balance 23.2 -2721.5 78.4 Meds/Results Medications: Active Medications Generic Name Dose Route Start Last Admin Trade Name Freq PRN Reason Stop Dose Admin Acetaminophen 325 mg 04/15/25 09:08 04/15/25 09:53 Acetaminophen 325 Mg Tablet PO 325 mg Q6H PRN Administration Mild Pain (1-3) or Fever Aspirin 81 mg 04/14/25 09:00 04/15/25 09:06 Aspirin 81 Mg Enteric Tablet PO 81 mg QAM GABBY Administration Dextrose 12.5 gm 04/14/25 08:16 Dextrose 50% 25 Gm/50 Ml Syringe IV PUSH PRN PRN Hypoglycemia Protocol Empagliflozin 10 mg 04/14/25 09:00 04/14/25 09:04 Empagliflozin 10 Mg Tablet BY MOUTH Not Given DAILY GABBY Furosemide 20 mg 04/15/25 09:00 04/15/25 09:06 Furosemide 20 Mg Tablet PO 20 mg DAILY GABBY Administration Glucagon 1 mg 04/14/25 08:16 Glucagon For Inj 1 Mg Vial IM PRN PRN Hypoglycemia Protocol Glucose 15 gm 04/14/25 08:16 Glucose Oral Gel 15 Gm Of Glucse In 37.5 Gm Tube PO PRN PRN Hypoglycemia Protocol Heparin Sodium (Porcine) 4,000 units 04/13/25 19:49 04/15/25 06:34 Heparin Sodium 5,000 Units/Ml Vial IV PUSH 4,000 units PRN PRN Administration aPTT less than 55 seconds Heparin Sodium (Porcine) 4,000 units 04/13/25 19:49 04/14/25 18:46 Heparin Sodium 5,000 Units/Ml Vial IV PUSH 4,000 units PRN PRN Administration aPTT 55 - 70 seconds Heparin Sodium/Dextrose 25,000 units in 250 mls @ 24 mls/hr 04/13/25 19:50 04/15/25 08:12 Heparin Sodium/D5w 100 Units/Ml IV CONT Not Given .[id number] GABBY Protocol 2,400 UNITS/HR Dextrose 1,000 mls @ 100 mls/hr 04/14/25 08:16 Dextrose 5% 1,000 Ml IVPB PRN PRN Hypoglycemia Protocol Insulin Aspart 3 - 6 units 04/14/25 12:00 04/15/25 11:47 Insulin Aspart (*Bkc) 100 Units/Ml SUB-Q Not Given Q6HR GABBY Protocol Metformin HCl 500 mg 04/14/25 09:00 04/14/25 09:04 Metformin Hcl 500 Mg Tablet PO Not Given BID GABBY Metoprolol Tartrate 25 mg 04/13/25 21:00 04/15/25 09:05 Metoprolol Tartrate 25 Mg Tablet PO 25 mg Q12HR GABBY Administration Mupirocin 1 applic 04/14/25 09:00 04/15/25 09:06 Mupirocin 2% Oint 22 Gm Tube EACH NARE 04/18/25 21:01 1 applic Q12HR GABBY Administration Sacubitril/Valsartan 1 tab 04/14/25 21:00 04/15/25 09:03 Sacubitril/Valsartan 24-26 Mg Tablet PO 1 tab Q12HR GABBY Administration Sertraline HCl 50 mg 04/14/25 09:00 04/15/25 09:06 Sertraline Hcl 50 Mg Tablet PO 50 mg DAILY GABBY Administration Spironolactone 12.5 mg 04/15/25 09:00 04/15/25 09:06 Spironolactone 12.5 Mg Tablet PO 12.5 mg QAM GABBY Administration Tamsulosin HCl 0.4 mg 04/14/25 09:00 04/15/25 09:06 Tamsulosin Hcl 0.4 Mg Capsule PO 0.4 mg DAILY GABBY Administration Radiology Results: ITS Impressions Chest CTA 04/14/25 07:04 IMPRESSION: 1. Mild bilateral pulmonary edema with very small bilateral pleural effusions. Chest X-Ray 04/14/25 07:25 IMPRESSION: 1. Opacities in bilateral mid and lower lung zones most consistent with mild pulmonary edema. Labs Labs: Laboratory Results - last 24 hr 04/14/25 04/14/25 04/14/25 16:02 17:24 18:40 WBC RBC Hgb Hct MCV MCH MCHC RDW Plt Count MPV APTT 55.7 H Sodium Potassium Chloride Carbon Dioxide Anion Gap BUN Creatinine Estim Creat Clear Calc Estimated GFR Glucose POC Capillary Glucose 215 H 177 H Calcium Phosphorus Magnesium Total Bilirubin AST ALT Alkaline Phosphatase Total Protein Albumin 04/14/25 04/15/25 04/15/25 23:25 00:26 05:30 WBC 9.0 RBC 5.39 Hgb 16.2 Hct 49.3 MCV 91.5 MCH 30.1 MCHC 32.9 RDW 13.3 Plt Count 197 MPV 11.2 H APTT 89.5 H 54.4 H Sodium 136 L Potassium 4.1 Chloride 100 Carbon Dioxide 26 Anion Gap 10 BUN 16 Creatinine 0.87 Estim Creat Clear Calc 113 Estimated GFR > 60 Glucose 183 H POC Capillary Glucose 163 H Calcium 9.5 Phosphorus 3.3 Magnesium 2.1 Total Bilirubin 1.1 AST 157 H ALT 112 H Alkaline Phosphatase 48 Total Protein 8.2 Albumin 4.5 04/15/25 11:14 WBC RBC Hgb Hct MCV MCH MCHC RDW Plt Count MPV APTT Sodium Potassium Chloride Carbon Dioxide Anion Gap BUN Creatinine Estim Creat Clear Calc Estimated GFR Glucose POC Capillary Glucose 170 H Calcium Phosphorus Magnesium Total Bilirubin AST ALT Alkaline Phosphatase Total Protein Albumin Quality VTE Prophylaxis VTE prophylaxis: pharmacologic ordered (Heparin drip per protocol)
[2025-04-15 12:58] LABS: Partial Thromboplastin Time 101.9 Seconds (22.3-36.8)
[2025-04-15] MEDS: HEPARIN SOD/D5W 100 UNITS/ML 25,000 UNITS/250 ML BAG 24 UNITS IV CONT (13:50)
[2025-04-15 15:52] LABS: Glucose Point of Care 188 mg/dl (65-105)
[2025-04-15] MEDS: busPIRone HCL 5 MG TABLET PO (15:53)
[2025-04-15 19:05] LABS: Partial Thromboplastin Time 83.7 Seconds (22.3-36.8)
[2025-04-15 20:08] LABS: Glucose Point of Care 198 mg/dl (65-105)
[2025-04-16] VITALS (30 sets, daily range): BP systolic 92–145; BP diastolic 50–95; PULSE 25–86; RESP 14–20; TEMP 36.5–36.8; O2SAT 93–98
[2025-04-16] MEDS: HEPARIN SOD/D5W 100 UNITS/ML 25,000 UNITS/250 ML BAG 24 UNITS IV CONT (01:26)
[2025-04-16 04:28] LABS: Basophils Absolute Auto 0.1 K/mm3 (0.0-0.1); Basophils Percent Auto 0.8 % (0.2-1.2); Eosinophils Absolute Auto 0.3 K/mm3 (0-0.3); Hematocrit 47.1 % (42.0-52.0); Hemoglobin 15.5 g/dL (14.0-18.0); Immature Granulocyte Absolute 0.02 K/mm3 (0.00-0.031); Immature Granulocyte Percent A 0.2 % (0-0.5); Lymphocytes Absolute Auto 3.82 K/mm3 (0.9-3.2); Lymphocytes Percent Auto 42.6 % (18.3-44.2); Mean Corpuscular HGB Conc 32.9 g/dl (32-36); Mean Corpuscular Volume 91.3 fl (80-100); Mean Platelet Volume 11.7 fl (7.4-10.4); Monocytes Absolute Auto 0.9 K/mm3 (0.1-0.6); Monocytes Percent Auto 10.5 % (2.6-8.5); Neutrophils Absolute Auto 3.9 K/mm3 (1.3-6.7); Neutrophils Percent Auto 42.9 % (45.5-73.1); Platelet Count Result 182 k/mm3 (150-375); Red Blood Count 5.16 M/mm3 (4.6-6.20); Red Cell Distribution Width 13.2 % (11.5-14.5)
[2025-04-16 04:42] LABS: Partial Thromboplastin Time 76.5 Seconds (22.3-36.8)
[2025-04-16 04:46] LABS: Alanine Aminotransferase 76 U/L (6-50); Albumin Level 4.2 g/dL (3.5-5.1); Alkaline Phosphatase 43 U/L (38-126); Anion Gap 9 mmol/L (4-12); Aspartate Amino Transferase 79 U/L (17-59); Bilirubin,Total 0.9 mg/dL (0.2-1.3); Blood Urea Nitrogen 17 mg/dL (9-20); Calcium 9.1 mg/dL (8.4-10.2); Carbon Dioxide 23 mmol/L (22-30); Chloride 102 mmol/L (98-107); Estimated CRCL calculation 115 ml/min; Estimated Glomerular Filt Rate > 60; Glucose 165 mg/dL (65-110); Magnesium 2.1 mg/dL (1.6-2.3); Phosphorus 3.5 mg/dL (2.5-4.5); Sodium 134 mmol/L (137-145); Total Protein 7.7 g/dL (6.3-8.2)
--- NOTE | 2025-04-16 07:58 | PM.PNCARD ---
Progress Note: A&P Assessment and Plan (1) V tach: Code(s): I47.20 - Ventricular tachycardia, unspecified Status: Acute Assessment and Plan: Differential includes ACS, cardiomyopathy, or Flecainide induced. Last dose Flecainide 04/13/25. Stopped Flecainide. Monitor for recurrence, and if VT occurs, then start Amiodarone drip. Otherwise would like Flecainide to wash out for at least a week. On Metoprolol Tartate 25 mg BID, and heparin drip, aspirin. Hold off on statin given transaminitis. Will ultimately need Life Vest or ICD prior to discharge. Placed order now. Risks/benefits/alternative to [facility] discuss with patient and he is agreeable to it. Refer to [facility] [place] for procedure. (2) Elevated troponin: Code(s): R79.89 - Other specified abnormal findings of blood chemistry Status: Acute Assessment and Plan: Significant rise in troponin to peak 28. Differential includes ACS, VT. (3) Acute cardiogenic pulmonary edema: Code(s): I50.1 - Left ventricular failure, unspecified Status: Acute Assessment and Plan: Recurrence of cardiomyopathy as he had on 11/30/23 which had resolved. (4) Paroxysmal atrial flutter: Code(s): I48.92 - Unspecified atrial flutter Status: Acute Assessment and Plan: Back in sinus rhythm after EMS defibrillated for unstable VT. (5) Essential hypertension: Code(s): I10 - Essential (primary) hypertension Status: Acute Assessment and Plan: Stable. (6) Transaminitis: Code(s): R74.01 - Elevation of levels of liver transaminase levels Status: Acute Assessment and Plan: Improving. Probably due to VT. Monitor. (7) Systolic dysfunction: Code(s): I51.9 - Heart disease, unspecified Status: Acute Assessment and Plan: On Metoprolol, Jardiance, Entresto 24-26 mg BID, and Spironolactone 12.5 mg daily. On Lasix 20 mg daily. Will need Life Vest or ICD upon discharge. Subjective Date/time seen: 04/16/25 07:58 Interval history: Denies chest pain, sob. Exam Const: General: cooperative, healthy appearing and comfortable Orientation/consciousness: oriented to person, oriented to place and oriented to time Resp: Auscultation: clear to auscultation bilaterally, no crackles, no rales, no rhonchi and no wheezes Cardio: Rate: regular rate Rhythm: regular rhythm Heart sounds: no murmurs Peripheral pulses: dorsalis pedis present Neuro: General: oriented to person, oriented to place and oriented to time Extrem: Right lower extremity: no edema Left lower extremity: no edema Objective Data Vital Signs Vital Signs: Vital Signs - 24 hr 04/15/25 07:59 04/15/25 08:00 04/15/25 09:05 Temperature 97.8 F Pulse Rate 67 62 73 Respiratory Rate 18 Blood Pressure 114/66 Pulse Oximetry 96 Oxygen Delivery Oxygen Flow Rate 04/15/25 09:30 04/15/25 09:50 04/15/25 09:55 Temperature Pulse Rate Respiratory Rate Blood Pressure Pulse Oximetry 98 96 96 Oxygen Delivery Nasal Cannula Room Air Room Air Oxygen Flow Rate 1 04/15/25 10:00 04/15/25 10:22 04/15/25 11:48 Temperature 97.8 F Pulse Rate 67 80 Respiratory Rate 20 Blood Pressure 93/60 L Pulse Oximetry 95 94 Oxygen Delivery Room Air Oxygen Flow Rate 04/15/25 12:00 04/15/25 14:00 04/15/25 16:00 Temperature 97.8 F Pulse Rate 54 L 68 66 Respiratory Rate 20 Blood Pressure 111/64 Pulse Oximetry 97 Oxygen Delivery Oxygen Flow Rate 04/15/25 16:00 04/15/25 18:00 04/15/25 20:00 Temperature 98.1 F Pulse Rate 73 71 70 Respiratory Rate 20 Blood Pressure 100/56 L Pulse Oximetry 92 Oxygen Delivery Oxygen Flow Rate 04/15/25 20:00 04/15/25 20:39 04/15/25 20:54 Temperature Pulse Rate 70 70 67 Respiratory Rate 20 Blood Pressure Pulse Oximetry 92 Oxygen Delivery Room Air Oxygen Flow Rate 04/15/25 22:00 04/15/25 23:00 04/15/25 23:44 Temperature 98.0 F Pulse Rate 69 61 Respiratory Rate 20 Blood Pressure 115/61 Pulse Oximetry 96 Oxygen Delivery Autopap Oxygen Flow Rate 04/16/25 00:00 04/16/25 00:00 04/16/25 02:00 Temperature Pulse Rate 61 64 80 Respiratory Rate 20 Blood Pressure Pulse Oximetry 96 Oxygen Delivery Room Air Oxygen Flow Rate 04/16/25 03:54 04/16/25 04:00 04/16/25 04:00 Temperature 98.2 F Pulse Rate 66 66 60 Respiratory Rate 20 20 Blood Pressure 136/69 Pulse Oximetry 96 96 Oxygen Delivery Room Air Oxygen Flow Rate 04/16/25 06:00 Temperature Pulse Rate 58 L Respiratory Rate Blood Pressure Pulse Oximetry Oxygen Delivery Oxygen Flow Rate Intake/Output Intake/Output: Intake & Output 04/13/25 04/14/25 04/15/25 04/16/25 23:59 23:59 23:59 23:59 Intake Total 23.2 1228.5 1668.2 725.6 Output Total 3950 2045 690 Balance 23.2 -2721.5 -376.8 35.6 Meds/Results Medications: Active Medications Generic Name Dose Route Start Last Admin Trade Name Freq PRN Reason Stop Dose Admin Acetaminophen 325 mg 04/15/25 09:08 04/15/25 09:53 Acetaminophen 325 Mg Tablet PO 325 mg Q6H PRN Administration Mild Pain (1-3) or Fever Aspirin 81 mg 04/14/25 09:00 04/15/25 09:06 Aspirin 81 Mg Enteric Tablet PO 81 mg QAM GABBY Administration Dextrose 12.5 gm 04/14/25 08:16 Dextrose 50% 25 Gm/50 Ml Syringe IV PUSH PRN PRN Hypoglycemia Protocol Empagliflozin 10 mg 04/14/25 09:00 04/14/25 09:04 Empagliflozin 10 Mg Tablet BY MOUTH Not Given DAILY GABBY Furosemide 20 mg 04/15/25 09:00 04/15/25 09:06 Furosemide 20 Mg Tablet PO 20 mg DAILY GABBY Administration Glucagon 1 mg 04/14/25 08:16 Glucagon For Inj 1 Mg Vial IM PRN PRN Hypoglycemia Protocol Glucose 15 gm 04/14/25 08:16 Glucose Oral Gel 15 Gm Of Glucse In 37.5 Gm Tube PO PRN PRN Hypoglycemia Protocol Heparin Sodium (Porcine) 4,000 units 04/13/25 19:49 04/15/25 06:34 Heparin Sodium 5,000 Units/Ml Vial IV PUSH 4,000 units PRN PRN Administration aPTT less than 55 seconds Heparin Sodium (Porcine) 4,000 units 04/13/25 19:49 04/14/25 18:46 Heparin Sodium 5,000 Units/Ml Vial IV PUSH 4,000 units PRN PRN Administration aPTT 55 - 70 seconds Heparin Sodium/Dextrose 25,000 units in 250 mls @ 24 mls/hr 04/13/25 19:50 04/16/25 03:47 Heparin Sodium/D5w 100 Units/Ml IV CONT 2,400 units/hr .[id number] GABBY 24 mls/hr Titration Protocol 2,400 UNITS/HR Dextrose 1,000 mls @ 100 mls/hr 04/14/25 08:16 Dextrose 5% 1,000 Ml IVPB PRN PRN Hypoglycemia Protocol Insulin Aspart 3 - 6 units 04/14/25 12:00 04/16/25 06:08 Insulin Aspart (*Bkc) 100 Units/Ml SUB-Q Not Given Q6HR GABBY Protocol Metformin HCl 500 mg 04/14/25 09:00 04/14/25 09:04 Metformin Hcl 500 Mg Tablet PO Not Given BID GABBY Metoprolol Tartrate 25 mg 04/13/25 21:00 04/15/25 20:54 Metoprolol Tartrate 25 Mg Tablet PO 25 mg Q12HR GABBY Administration Mupirocin 1 applic 04/14/25 09:00 04/15/25 20:55 Mupirocin 2% Oint 22 Gm Tube EACH NARE 04/18/25 21:01 1 applic Q12HR GABBY Administration Sacubitril/Valsartan 1 tab 04/14/25 21:00 04/15/25 20:55 Sacubitril/Valsartan 24-26 Mg Tablet PO 1 tab Q12HR GABBY Administration Sertraline HCl 50 mg 04/14/25 09:00 04/15/25 09:06 Sertraline Hcl 50 Mg Tablet PO 50 mg DAILY GABBY Administration Spironolactone 12.5 mg 04/15/25 09:00 04/15/25 09:06 Spironolactone 12.5 Mg Tablet PO 12.5 mg QAM GABBY Administration Tamsulosin HCl 0.4 mg 04/14/25 09:00 04/15/25 09:06 Tamsulosin Hcl 0.4 Mg Capsule PO 0.4 mg DAILY GABBY Administration Radiology Results: ITS Impressions Chest CTA 04/14/25 07:04 IMPRESSION: 1. Mild bilateral pulmonary edema with very small bilateral pleural effusions. Chest X-Ray 04/14/25 07:25 IMPRESSION: 1. Opacities in bilateral mid and lower lung zones most consistent with mild pulmonary edema. Labs Labs: Laboratory Results - last 24 hr 04/15/25 04/15/25 04/15/25 11:14 12:23 15:33 WBC RBC Hgb Hct MCV MCH MCHC RDW Plt Count MPV Immature Gran % (Auto) Neut % (Auto) Lymph % (Auto) [place] % (Auto) Eos % (Auto) Baso % (Auto) Lymph # (Auto) [place] # (Auto) Eos # (Auto) Baso # (Auto) Abs Immat Gran (auto) Absolute Neuts (auto) Absolute Nucleated RBC Nucleated RBC % APTT 101.9 H Sodium Potassium Chloride Carbon Dioxide Anion Gap BUN Creatinine Estim Creat Clear Calc Estimated GFR Glucose POC Capillary Glucose 170 H 188 H Calcium Phosphorus Magnesium Total Bilirubin AST ALT Alkaline Phosphatase Total Protein Albumin 04/15/25 04/15/25 04/16/25 18:31 19:48 03:47 WBC 9.0 RBC 5.16 Hgb 15.5 Hct 47.1 MCV 91.3 MCH 30.0 MCHC 32.9 RDW 13.2 Plt Count 182 MPV 11.7 H Immature Gran % (Auto) 0.2 Neut % (Auto) 42.9 L Lymph % (Auto) 42.6 [place] % (Auto) 10.5 H Eos % (Auto) 3.0 Baso % (Auto) 0.8 Lymph # (Auto) 3.82 H [place] # (Auto) 0.9 H Eos # (Auto) 0.3 Baso # (Auto) 0.1 Abs Immat Gran (auto) 0.02 Absolute Neuts (auto) 3.9 Absolute Nucleated RBC 0.000 Nucleated RBC % 0.0 APTT 83.7 H 76.5 H Sodium 134 L Potassium 4.0 Chloride 102 Carbon Dioxide 23 Anion Gap 9 BUN 17 Creatinine 0.87 Estim Creat Clear Calc 115 Estimated GFR > 60 Glucose 165 H POC Capillary Glucose 198 H Calcium 9.1 Phosphorus 3.5 Magnesium 2.1 Total Bilirubin 0.9 AST 79 H ALT 76 H Alkaline Phosphatase 43 Total Protein 7.7 Albumin 4.2
[2025-04-16] MEDS: TAMSULOSIN HCL 0.4 MG CAPSULE PO (08:18)
[2025-04-16] MEDS: FUROSEMIDE 20 MG TABLET PO (08:18)
[2025-04-16] MEDS: SACUBITRIL/VALSARTAN 24-26 MG TABLET 1 TAB PO ×3 (08:18→17:48)
[2025-04-16] MEDS: SPIRONOLACTONE 12.5 MG TABLET PO (08:18)
[2025-04-16] MEDS: METOPROLOL TARTRATE 25 MG TABLET PO ×3 (08:18→17:48)
[2025-04-16] MEDS: SERTRALINE HCL 50 MG TABLET PO (08:18)
[2025-04-16] MEDS: ASPIRIN 81 MG ENTERIC TABLET PO (08:19)
[2025-04-16] MEDS: ACETAMINOPHEN 325 MG TABLET PO (08:19)
[2025-04-16 08:26] LABS: Glucose Point of Care 181 mg/dl (65-105)
--- NOTE | 2025-04-16 09:22 | PM.CNCAR ---
Assessment and Plan Assessment and plan (1) Atrial flutter with rapid ventricular response: Code(s): I48.92 - Unspecified atrial flutter Status: Acute (2) Essential hypertension: Code(s): I10 - Essential (primary) hypertension Status: Acute (3) Acute systolic heart failure: Code(s): I50.21 - Acute systolic (congestive) heart failure Status: Acute (4) NSTEMI (non-ST elevated myocardial infarction): Code(s): I21.4 - Non-ST elevation (NSTEMI) myocardial infarction Status: Acute Plan -cardiac catheterization -aspirin, statin -continue Eliquis -continue metoprolol -continue flecainide -IV Lasix 20 mg b.i.d. -check daily weight, ins and outs, renal function -check and replace electrolytes to keep K greater than 4 and magnesium greater than 2 -guideline directed medical therapy for systolic heart failure with metoprolol, empagliflozin. Add MARGO-inhibitor/ARB/ARNI if blood pressure allows -stop Cardizem given depressed LVEF History of Present Illness History of Present Illness Consult date/time: 04/16/25 09:22 Reason For Visit: V tach Narrative: 54-year-old male with history of paroxysmal atrial controlled on chronic anticoagulation with Eliquis, obstructive sleep apnea on CPAP, arthritis presents with chief complaint of shortness of breath and palpitations. Patient states he lost his job about a year ago and about that time he started having symptoms of shortness of breath and palpitations. The symptoms come on every couple of months and last for short period of time before resolving. Yesterday he had shortness of breath and palpitations which was unresolved and he presented to the ER. He was noted to be in AFib with RVR and received a shock by EMS while being transported to the ER and converted to sinus rhythm. He denies any chest pain, dizziness, lightheadedness, leg swelling, recent weight gain, orthopnea, PND. His Troponin is elevated and peaked at 28. EKG initially showed AFib with RVR and post cardioversion showed sinus rhythm. Cardiology is consulted for further recommendations. Work up: Hemoglobin: 15.5 Creatinine 0.87 Troponin: 8, 18, 28, 24 EKG: Atrial flutter/tachycardia EKG: Sinus rhythm with first-degree AV block, IVCD, nonspecific ST T wave changes suggestive of ischemia ECHO: LVEF severely reduced at 30-35%, grade 3 diastolic dysfunction, mild MR Chest x-ray: Mild bilateral pulmonary edema. CT chest: Mild bilateral pulmonary edema with very small bilateral pleural effusions. Review of Systems Review of Systems: Complete review of systems was performed and negative other than those mentioned in the [facility] Past Medical History Medical History LUIS (obstructive sleep apnea) On auto PAP Hepatic steatosis Essential hypertension Diabetes mellitus PAF (paroxysmal atrial fibrillation) Paroxysmal atrial flutter BPH (benign prostatic hyperplasia) Arthritis Surgical History Surgical History Hx of tonsillectomy Family History Family History Father Cerebrovascular accident Other Colon cancer Social History Social History Social History: He lives with his of 31 years. 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 He smoked 1.5 packs of cigarettes per day for about 15 years and quit smoking in 1999. He drinks alcohol about once per week. He denies illicit substance use. Code status: Full code Surrogate decision maker: Smoking packs per day: 1.5 Smoking cigarettes per day: 30.0 Years smoked: 15 Smoking pack-years: 22.50 Smoking status: Former smoker Tobacco type: cigarettes Second hand tobacco smoke exposure: Yes Smoking end date: 10/25/99 Additional smoking assessment comments: Smoked about 1PPD for 15 years Alcohol intake: never Drinks per week: 3 Alcohol use details: Drinks about 1-3 per week Substance use: never Substance use type: does not use Do You Feel Safe in your Home?: Yes Lack of Transportation: No Lack of Food: Never True Current Housing: I Have Housing Concerned About Future Housing: No Difficulty Paying Gas/Electric Bills: Decline to Answer Difficulty Paying for Meds: Decline to Answer Currently Unemployed: No Education: Trade/Vocational Certificate Difficulty w/ Childcare or Family Care: Decline to Answer Living arrangements: with family Additional living arrangements comments: Lives in [place], [place] with his and children. 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 Gender identity (if verbalized by the patient): Male Spiritual care concerns: No Meds Home Medications and Allergies Home Medications ?Medication ?Instructions ?Recorded ?Confirmed ?Type metformin 500 mg tablet 500 mg PO BID #180 tabs 09/26/24 04/13/25 Rx apixaban 5 mg tablet (Eliquis) See Rx Instructions .Route 11/29/24 04/13/25 Rx .COMPLEX #60 tabs tamsulosin 0.4 mg capsule 0.4 mg PO DAILY #90 caps 01/02/25 04/13/25 Rx sertraline 50 mg tablet 50 mg PO DAILY #90 tabs 02/20/25 04/13/25 Rx metoprolol succinate 100 mg 100 mg PO QAM 02/28/25 04/13/25 History tablet,extended release 24 hr dapagliflozin propanediol 10 mg 10 mg PO DAILY #90 tabs 03/20/25 04/13/25 Rx tablet (Farxiga) flecainide 100 mg tablet 100 mg PO Q12H #60 tabs 03/29/25 04/13/25 Rx semaglutide 0.25 mg or 0.5 mg (2 0.25 mg (0.368 mL) subcut WEEKLY 04/02/25 04/13/25 Rx mg/3 mL) subcutaneous pen injector #3 mL (Ozempic) semaglutide 1 mg/dose (4 mg/3 mL) 1 mg (0.75 mL) subcut WEEKLY #3 mL 04/02/25 04/13/25 Rx subcutaneous pen injector (Ozempic) diltiazem HCl 30 mg tablet 30 mg PO BID #60 tabs 04/13/25 04/13/25 Rx Allergies Allergy/AdvReac Type Severity Reaction Status Date / Time No Known Allergies Allergy Unknown Verified 04/12/25 14:58 Vital Signs Vital Signs - 24 hr 04/15/25 09:30 04/15/25 09:50 04/15/25 09:55 Temperature Pulse Rate Respiratory Rate Blood Pressure Pulse Oximetry 98 96 96 Oxygen Delivery Nasal Cannula Room Air Room Air Oxygen Flow Rate 1 04/15/25 10:00 04/15/25 10:22 04/15/25 11:48 Temperature 36.6 C Pulse Rate 67 80 Respiratory Rate 20 Blood Pressure 93/60 L Pulse Oximetry 95 94 Oxygen Delivery Room Air Oxygen Flow Rate 04/15/25 12:00 04/15/25 14:00 04/15/25 16:00 Temperature 36.6 C Pulse Rate 54 L 68 66 Respiratory Rate 20 Blood Pressure 111/64 Pulse Oximetry 97 Oxygen Delivery Oxygen Flow Rate 04/15/25 16:00 04/15/25 18:00 04/15/25 20:00 Temperature 36.7 C Pulse Rate 73 71 70 Respiratory Rate 20 Blood Pressure 100/56 L Pulse Oximetry 92 Oxygen Delivery Oxygen Flow Rate 04/15/25 20:00 04/15/25 20:39 04/15/25 20:54 Temperature Pulse Rate 70 70 67 Respiratory Rate 20 Blood Pressure Pulse Oximetry 92 Oxygen Delivery Room Air Oxygen Flow Rate 04/15/25 22:00 04/15/25 23:00 04/15/25 23:44 Temperature 36.7 C Pulse Rate 69 61 Respiratory Rate 20 Blood Pressure 115/61 Pulse Oximetry 96 Oxygen Delivery Autopap Oxygen Flow Rate 04/16/25 00:00 04/16/25 00:00 04/16/25 02:00 Temperature Pulse Rate 61 64 80 Respiratory Rate 20 Blood Pressure Pulse Oximetry 96 Oxygen Delivery Room Air Oxygen Flow Rate 04/16/25 03:54 04/16/25 04:00 04/16/25 04:00 Temperature 36.8 C Pulse Rate 66 66 60 Respiratory Rate 20 20 Blood Pressure 136/69 Pulse Oximetry 96 96 Oxygen Delivery Room Air Oxygen Flow Rate 04/16/25 06:00 04/16/25 07:40 04/16/25 08:00 Temperature 36.6 C Pulse Rate 58 L 67 63 Respiratory Rate 18 Blood Pressure 107/53 L Pulse Oximetry 94 Oxygen Delivery Oxygen Flow Rate 04/16/25 08:18 Temperature Pulse Rate 63 Respiratory Rate Blood Pressure Pulse Oximetry Oxygen Delivery Oxygen Flow Rate Exam Narrative: General: Alert oriented x3, no acute distress Neck: Supple, no JVD Chest: Bibasilar rales, no rhonchi Cardiac: S1, S2 +, regular rate, regular rhythm, no murmurs or rubs Extremities: No pedal edema, no skin rash Neurologic: Alert and oriented x3, no focal neurological deficits Results Labs and Meds 04/16/25 03:47 04/16/25 03:47 Lab results: Cardiac Enzymes 04/16/25 Range/Units 03:47 AST 79 H (17-59) U/L Coagulation 04/15/25 04/15/2504/16/25 Range/Units 12:23 18:31 03:47 APTT 101.9 H 83.7 H 76.5 H (22.3-36.8) Seconds CBC 04/16/25 Range/Units 03:47 WBC 9.0 (4.5-10.0) K/mm3 RBC 5.16 (4.6-6.20) M/mm3 Hgb 15.5 (14.0-18.0) g/dL Hct 47.1 (42.0-52.0) % Plt Count 182 (150-375) k/mm3 Lymph # (Auto) 3.82 H (0.9-3.2) K/mm3 [place] # (Auto) 0.9 H (0.1-0.6) K/mm3 Eos # (Auto) 0.3 (0-0.3) K/mm3 Baso # (Auto) 0.1 (0.0-0.1) K/mm3 Comprehensive Metabolic Panel 04/16/25 Range/Units 03:47 Sodium 134 L (137-145) mmol/L Potassium 4.0 (3.4-5.0) mmol/L Chloride 102 (98-107) mmol/L Carbon Dioxide 23 (22-30) mmol/L BUN 17 (9-20) mg/dL Creatinine 0.87 (0.7-1.3) mg/dL Glucose 165 H (65-110) mg/dL Calcium 9.1 (8.4-10.2) mg/dL AST 79 H (17-59) U/L ALT 76 H (6-50) U/L Alkaline Phosphatase 43 (38-126) U/L Total Protein 7.7 (6.3-8.2) g/dL Albumin 4.2 (3.5-5.1) g/dL Intake and Output 04/15/25 04/16/25 04/16/25 23:59 07:59 15:59 Intake Total 870.8 725.6 Output Total 840 690 400 Balance 30.8 35.6 -400 Intake: IV 130.8 175.6 Heparin Sod/D5w 100 Units/ml 25 130.8 175.6 ,000 units In 250 ml @ 2,400 UNITS/HR 24 mls/hr IV CONT . [id number] [facility] Rx#:[id number] Oral 740 550 Output: Urine 540 690 400 Catheter Urine 300 External/Condom 300 Patient Weight 04/16/25 23:59 Weight 135.2 kg
[2025-04-16] MEDS: MUPIROCIN 2% OINT 22 GM TUBE 1 APPLIC EACH NARE (10:33)
--- NOTE | 2025-04-16 10:37 | WPDHPUPDATE1 ---
History and Physical Update Update Date/Time: 04/16/25 10:37 History and Physical has been reviewed, including an updated exam of the patient. There are NO changes in the patient's condition. Risks, benefits, and alternatives have been discussed and questions answered. Patient agrees to proceed with procedure.
--- NOTE | 2025-04-16 10:37 | WPDMODSED ---
Moderate Sedation Note-Pt Data Patient Data Diagnosis: SOB and elevated troponin without chest pain- troponin trending upwards Acute on chronic systolic heart failure VT s/p shock A fib with RVR- now in sinus rhythm Present Complaint: Shortness of breath Palpitations Procedure to be performed/Plan: LHC, coronary angiogram, possible PCI Allergies Allergy/AdvReac Type Severity Reaction Status Date / Time No Known Allergies Allergy Unknown Verified 04/12/25 14:58 Home Medications ?Medication ?Instructions ?Recorded ?Confirmed ?Type metformin 500 mg tablet 500 mg PO BID #180 tabs 09/26/24 04/13/25 Rx apixaban 5 mg tablet (Eliquis) See Rx Instructions .Route 11/29/24 04/13/25 Rx .COMPLEX #60 tabs tamsulosin 0.4 mg capsule 0.4 mg PO DAILY #90 caps 01/02/25 04/13/25 Rx sertraline 50 mg tablet 50 mg PO DAILY #90 tabs 02/20/25 04/13/25 Rx metoprolol succinate 100 mg 100 mg PO QAM 02/28/25 04/13/25 History tablet,extended release 24 hr dapagliflozin propanediol 10 mg 10 mg PO DAILY #90 tabs 03/20/25 04/13/25 Rx tablet (Farxiga) flecainide 100 mg tablet 100 mg PO Q12H #60 tabs 03/29/25 04/13/25 Rx semaglutide 0.25 mg or 0.5 mg (2 0.25 mg (0.368 mL) subcut WEEKLY 04/02/25 04/13/25 Rx mg/3 mL) subcutaneous pen injector #3 mL (Ozempic) semaglutide 1 mg/dose (4 mg/3 mL) 1 mg (0.75 mL) subcut WEEKLY #3 mL 04/02/25 04/13/25 Rx subcutaneous pen injector (Ozempic) diltiazem HCl 30 mg tablet 30 mg PO BID #60 tabs 04/13/25 04/13/25 Rx Current Medications: Active Medications Acetaminophen (Acetaminophen 325 Mg Tablet) 325 mg PO Q6H PRN PRN Reason: Mild Pain (1-3) or Fever Last Admin: 04/16/25 08:19 Dose: 325 mg Aspirin (Aspirin 81 Mg Enteric Tablet) 81 mg PO QAM [facility] Last Admin: 04/16/25 08:19 Dose: 81 mg Dextrose (Dextrose 50% 25 Gm/50 Ml Syringe) 12.5 gm IV PUSH PRN PRN; Protocol PRN Reason: Hypoglycemia Empagliflozin (Empagliflozin 10 Mg Tablet) 10 mg BY MOUTH DAILY [facility] Last Admin: 04/14/25 09:04 Dose: Not Given Furosemide (Furosemide 20 Mg Tablet) 20 mg PO DAILY [facility] Last Admin: 04/16/25 08:18 Dose: 20 mg Glucagon (Glucagon For Inj 1 Mg Vial) 1 mg IM PRN PRN; Protocol PRN Reason: Hypoglycemia Glucose (Glucose Oral Gel 15 Gm Of Glucse In 37.5 Gm Tube) 15 gm PO PRN PRN; Protocol PRN Reason: Hypoglycemia Heparin Sodium (Porcine) (Heparin Sodium 5,000 Units/Ml Vial) 4,000 units IV PUSH PRN PRN PRN Reason: aPTT less than 55 seconds Last Admin: 04/15/25 06:34 Dose: 4,000 units Heparin Sodium (Porcine) (Heparin Sodium 5,000 Units/Ml Vial) 4,000 units IV PUSH PRN PRN PRN Reason: aPTT 55 - 70 seconds Last Admin: 04/14/25 18:46 Dose: 4,000 units Heparin Sodium/Dextrose (Heparin Sodium/D5w 100 Units/Ml) 25,000 units in 250 mls @ 24 mls/hr IV CONT .[id number] GABBY; Protocol Last Titration: 04/16/25 03:47 Dose: 2,400 units/hr, 24 mls/hr Dextrose (Dextrose 5% 1,000 Ml) 1,000 mls @ 100 mls/hr IVPB PRN PRN; Protocol PRN Reason: Hypoglycemia Insulin Aspart (Insulin Aspart (*Bkc) 100 Units/Ml) 3 - 6 units SUB-Q Q6HR [facility]; Protocol Last Admin: 04/16/25 06:08 Dose: Not Given Metformin HCl (Metformin Hcl 500 Mg Tablet) 500 mg PO BID [facility] Last Admin: 04/14/25 09:04 Dose: Not Given Metoprolol Tartrate (Metoprolol Tartrate 25 Mg Tablet) 25 mg PO Q12HR [facility] Last Admin: 04/16/25 08:18 Dose: 25 mg Mupirocin (Mupirocin 2% Oint 22 Gm Tube) 1 applic EACH NARE Q12HR [facility] Stop: 04/18/25 21:01 Last Admin: 04/16/25 10:33 Dose: 1 applic Sacubitril/Valsartan (Sacubitril/Valsartan 24-26 Mg Tablet) 1 tab PO Q12HR [facility] Last Admin: 04/16/25 08:18 Dose: 1 tab Sertraline HCl (Sertraline Hcl 50 Mg Tablet) 50 mg PO DAILY [facility] Last Admin: 04/16/25 08:18 Dose: 50 mg Spironolactone (Spironolactone 12.5 Mg Tablet) 12.5 mg PO QAM [facility] Last Admin: 04/16/25 08:18 Dose: 12.5 mg Tamsulosin HCl (Tamsulosin Hcl 0.4 Mg Capsule) 0.4 mg PO DAILY [facility] Last Admin: 04/16/25 08:18 Dose: 0.4 mg Sedation/Anesthesia: No previous sedation/anesthesia problems (including family history). [facility] Past Medical History Medical History LUIS (obstructive sleep apnea) On auto PAP Hepatic steatosis Essential hypertension Diabetes mellitus PAF (paroxysmal atrial fibrillation) Paroxysmal atrial flutter BPH (benign prostatic hyperplasia) Arthritis Surgical History Surgical History Hx of tonsillectomy Family History Family History Father Cerebrovascular accident Other Colon cancer Social History Social History Social History: He lives with his of 31 years. 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 He smoked 1.5 packs of cigarettes per day for about 15 years and quit smoking in 1999. He drinks alcohol about once per week. He denies illicit substance use. Code status: Full code Surrogate decision maker: Smoking packs per day: 1.5 Smoking cigarettes per day: 30.0 Years smoked: 15 Smoking pack-years: 22.50 Smoking status: Former smoker Tobacco type: cigarettes Second hand tobacco smoke exposure: Yes Smoking end date: 10/25/99 Additional smoking assessment comments: Smoked about 1PPD for 15 years Alcohol intake: never Drinks per week: 3 Alcohol use details: Drinks about 1-3 per week Substance use: never Substance use type: does not use Do You Feel Safe in your Home?: Yes Lack of Transportation: No Lack of Food: Never True Current Housing: I Have Housing Concerned About Future Housing: No Difficulty Paying Gas/Electric Bills: Decline to Answer Difficulty Paying for Meds: Decline to Answer Currently Unemployed: No Education: Trade/Vocational Certificate Difficulty w/ Childcare or Family Care: Decline to Answer Living arrangements: with family Additional living arrangements comments: Lives in [place], [place] with his and children. 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 Gender identity (if verbalized by the patient): Male Spiritual care concerns: No Mod Sed Physical Exam Physical Exam Pre Procedural Exam: Normal: Heart Size, Heart Rate and Heart Rhythm and Variation: Lungs (Bibasilar crackles) Hours since solid foods: 12 Hours since liquid intake: 12 Mallampati Classification: class III Internal Medicine - PN: Obj Da Vital Signs Vital Signs: Vital Signs - 24 hr 04/15/25 11:48 04/15/25 12:00 04/15/25 14:00 Temperature 36.6 C Pulse Rate 80 54 L 68 Respiratory Rate 20 Blood Pressure 93/60 L Pulse Oximetry 94 Oxygen Delivery 04/15/25 16:00 04/15/25 16:00 04/15/25 18:00 Temperature 36.6 C Pulse Rate 66 73 71 Respiratory Rate 20 Blood Pressure 111/64 Pulse Oximetry 97 Oxygen Delivery 04/15/25 20:00 04/15/25 20:00 04/15/25 20:39 Temperature 36.7 C Pulse Rate 70 70 70 Respiratory Rate 20 20 Blood Pressure 100/56 L Pulse Oximetry 92 92 Oxygen Delivery Room Air 04/15/25 20:54 04/15/25 22:00 04/15/25 23:00 Temperature Pulse Rate 67 69 Respiratory Rate Blood Pressure Pulse Oximetry Oxygen Delivery Autopap 04/15/25 23:44 04/16/25 00:00 04/16/25 00:00 Temperature 36.7 C Pulse Rate 61 61 64 Respiratory Rate 20 20 Blood Pressure 115/61 Pulse Oximetry 96 96 Oxygen Delivery Room Air 04/16/25 02:00 04/16/25 03:54 04/16/25 04:00 Temperature 36.8 C Pulse Rate 80 66 66 Respiratory Rate 20 20 Blood Pressure 136/69 Pulse Oximetry 96 96 Oxygen Delivery Room Air 04/16/25 04:00 04/16/25 06:00 04/16/25 07:40 Temperature 36.6 C Pulse Rate 60 58 L 67 Respiratory Rate 18 Blood Pressure 107/53 L Pulse Oximetry 94 Oxygen Delivery 04/16/25 08:00 04/16/25 08:18 04/16/25 10:00 Temperature Pulse Rate 63 63 63 Respiratory Rate Blood Pressure Pulse Oximetry Oxygen Delivery Intake/Output Intake/Output: Intake & Output 04/13/25 04/14/25 04/15/25 04/16/25 23:59 23:59 23:59 23:59 Intake Total 23.2 1228.5 1668.2 725.6 Output Total 3950 2045 1090 Balance 23.2 -2721.5 -376.8 -364.4 Meds/Results Medications: Active Medications Generic Name Dose Route Start Last Admin Trade Name Freq PRN Reason Stop Dose Admin Acetaminophen 325 mg 04/15/25 09:08 04/16/25 08:19 Acetaminophen 325 Mg Tablet PO 325 mg Q6H PRN Administration Mild Pain (1-3) or Fever Aspirin 81 mg 04/14/25 09:00 04/16/25 08:19 Aspirin 81 Mg Enteric Tablet PO 81 mg QAM GABBY Administration Dextrose 12.5 gm 04/14/25 08:16 Dextrose 50% 25 Gm/50 Ml Syringe IV PUSH PRN PRN Hypoglycemia Protocol Empagliflozin 10 mg 04/14/25 09:00 04/14/25 09:04 Empagliflozin 10 Mg Tablet BY MOUTH Not Given DAILY GABBY Furosemide 20 mg 04/15/25 09:00 04/16/25 08:18 Furosemide 20 Mg Tablet PO 20 mg DAILY GABBY Administration Glucagon 1 mg 04/14/25 08:16 Glucagon For Inj 1 Mg Vial IM PRN PRN Hypoglycemia Protocol Glucose 15 gm 04/14/25 08:16 Glucose Oral Gel 15 Gm Of Glucse In 37.5 Gm Tube PO PRN PRN Hypoglycemia Protocol Heparin Sodium (Porcine) 4,000 units 04/13/25 19:49 04/15/25 06:34 Heparin Sodium 5,000 Units/Ml Vial IV PUSH 4,000 units PRN PRN Administration aPTT less than 55 seconds Heparin Sodium (Porcine) 4,000 units 04/13/25 19:49 04/14/25 18:46 Heparin Sodium 5,000 Units/Ml Vial IV PUSH 4,000 units PRN PRN Administration aPTT 55 - 70 seconds Heparin Sodium/Dextrose 25,000 units in 250 mls @ 24 mls/hr 04/13/25 19:50 04/16/25 03:47 Heparin Sodium/D5w 100 Units/Ml IV CONT 2,400 units/hr .[id number] GABBY 24 mls/hr Titration Protocol 2,400 UNITS/HR Dextrose 1,000 mls @ 100 mls/hr 04/14/25 08:16 Dextrose 5% 1,000 Ml IVPB PRN PRN Hypoglycemia Protocol Insulin Aspart 3 - 6 units 04/14/25 12:00 04/16/25 06:08 Insulin Aspart (*Bkc) 100 Units/Ml SUB-Q Not Given Q6HR GABBY Protocol Metformin HCl 500 mg 04/14/25 09:00 04/14/25 09:04 Metformin Hcl 500 Mg Tablet PO Not Given BID GABBY Metoprolol Tartrate 25 mg 04/13/25 21:00 04/16/25 08:18 Metoprolol Tartrate 25 Mg Tablet PO 25 mg Q12HR GABBY Administration Mupirocin 1 applic 04/14/25 09:00 04/16/25 10:33 Mupirocin 2% Oint 22 Gm Tube EACH NARE 04/18/25 21:01 1 applic Q12HR GABBY Administration Sacubitril/Valsartan 1 tab 04/14/25 21:00 04/16/25 08:18 Sacubitril/Valsartan 24-26 Mg Tablet PO 1 tab Q12HR GABBY Administration Sertraline HCl 50 mg 04/14/25 09:00 04/16/25 08:18 Sertraline Hcl 50 Mg Tablet PO 50 mg DAILY GABBY Administration Spironolactone 12.5 mg 04/15/25 09:00 04/16/25 08:18 Spironolactone 12.5 Mg Tablet PO 12.5 mg QAM GABBY Administration Tamsulosin HCl 0.4 mg 04/14/25 09:00 04/16/25 08:18 Tamsulosin Hcl 0.4 Mg Capsule PO 0.4 mg DAILY GABBY Administration Radiology Results: ITS Impressions Chest CTA 04/14/25 07:04 IMPRESSION: 1. Mild bilateral pulmonary edema with very small bilateral pleural effusions. Chest X-Ray 04/14/25 07:25 IMPRESSION: 1. Opacities in bilateral mid and lower lung zones most consistent with mild pulmonary edema. Labs 04/16/25 03:47 04/16/25 03:47 Labs: Laboratory Results - last 24 hr 04/15/25 04/15/25 04/15/25 11:14 12:23 15:33 WBC RBC Hgb Hct MCV MCH MCHC RDW Plt Count MPV Immature Gran % (Auto) Neut % (Auto) Lymph % (Auto) [place] % (Auto) Eos % (Auto) Baso % (Auto) Lymph # (Auto) [place] # (Auto) Eos # (Auto) Baso # (Auto) Abs Immat Gran (auto) Absolute Neuts (auto) Absolute Nucleated RBC Nucleated RBC % APTT 101.9 H Sodium Potassium Chloride Carbon Dioxide Anion Gap BUN Creatinine Estim Creat Clear Calc Estimated GFR Glucose POC Capillary Glucose 170 H 188 H Calcium Phosphorus Magnesium Total Bilirubin AST ALT Alkaline Phosphatase Total Protein Albumin 04/15/25 04/15/25 04/16/25 18:31 19:48 03:47 WBC 9.0 RBC 5.16 Hgb 15.5 Hct 47.1 MCV 91.3 MCH 30.0 MCHC 32.9 RDW 13.2 Plt Count 182 MPV 11.7 H Immature Gran % (Auto) 0.2 Neut % (Auto) 42.9 L Lymph % (Auto) 42.6 [place] % (Auto) 10.5 H Eos % (Auto) 3.0 Baso % (Auto) 0.8 Lymph # (Auto) 3.82 H [place] # (Auto) 0.9 H Eos # (Auto) 0.3 Baso # (Auto) 0.1 Abs Immat Gran (auto) 0.02 Absolute Neuts (auto) 3.9 Absolute Nucleated RBC 0.000 Nucleated RBC % 0.0 APTT 83.7 H 76.5 H Sodium 134 L Potassium 4.0 Chloride 102 Carbon Dioxide 23 Anion Gap 9 BUN 17 Creatinine 0.87 Estim Creat Clear Calc 115 Estimated GFR > 60 Glucose 165 H POC Capillary Glucose 198 H Calcium 9.1 Phosphorus 3.5 Magnesium 2.1 Total Bilirubin 0.9 AST 79 H ALT 76 H Alkaline Phosphatase 43 Total Protein 7.7 Albumin 4.2 04/16/25 07:47 WBC RBC Hgb Hct MCV MCH MCHC RDW Plt Count MPV Immature Gran % (Auto) Neut % (Auto) Lymph % (Auto) [place] % (Auto) Eos % (Auto) Baso % (Auto) Lymph # (Auto) [place] # (Auto) Eos # (Auto) Baso # (Auto) Abs Immat Gran (auto) Absolute Neuts (auto) Absolute Nucleated RBC Nucleated RBC % APTT Sodium Potassium Chloride Carbon Dioxide Anion Gap BUN Creatinine Estim Creat Clear Calc Estimated GFR Glucose POC Capillary Glucose 181 H Calcium Phosphorus Magnesium Total Bilirubin AST ALT Alkaline Phosphatase Total Protein Albumin ASA Classification/Sedation ASA Classification/Sedation ASA Class: IV Emergent: No Risks: Risks, benefits and alternatives explained and patient/family accepted plan for sedation. Patient re-evaluated immediately prior to sedation.
--- NOTE | 2025-04-16 10:50 | PC.NURSE ---
Pt off the floor for cardiac cath. Taken by wheelchair with heparin drip infusing, accompanied by mine laborer RN.
--- NOTE | 2025-04-16 11:31 | P.PCNCC_ITS ---
Cardiac Cath Procedure Note Date of procedure:: 04/16/25 Performing physician:: Ewelina Javier MD Indication:: SOB and elevated troponin without chest pain- troponin trending upwards Acute on chronic systolic heart failure VT s/p shock A fib with RVR- now in sinus rhythm Brief clinical history:: 54 y/o male patient with SOB, VT s/p shock, A fib with RVR now converted back to SR, acute systolic HF with LVEF 30% and global hypokinesis by echo this admission (LVEF was normal last year) going for cardiac cath to evaluate coronaries given VT and depressed LVEF. Procedure Procedure performed:: Procedure Date: 04/16/25 Referring Physician: Dr. Larsen Anesthesia: Versed and Fentanyl were ordered and given in my presence at 11:04 a.m., procedure ended at 11:20 a.m.. Supervision of nurse monitored moderate sedation with Versed and Fentanyl was provided for 16 minutes. Pre-op Diagnosis: SOB and elevated troponin without chest pain- troponin trending upwards Acute on chronic systolic heart failure VT s/p shock A fib with RVR- now in sinus rhythm Post-op Diagnosis: Nonischemic cardiomyopathy No CAD Procedure(s): Right radial artery access Left heart catheterization with coronary angiography Access Site: Right radial artery Hemostasis: TR band Brief History and Clinical Indications: All risks, benefits and alternatives to left heart catheterization with or without percutaneous coronary intervention was discussed at length with the patient. Risk of complications including but not limited to bleeding, infection, arrhythmia, stroke, worsening kidney function, blood loss, groin hematoma, limb loss, emergency coronary artery bypass grafting, and even were discussed with the patient and all questions were answered. The patient understood and wished to proceed. Time out called, patient name, date of , medical record number, allergies, procedure performed, identify Senior Bi Architect, patient and staff member concurred with accurate data, procedure carried on. Findings: LEFT HEART CATHETERIZATION FINDINGS: 1. Left main: The left main coronary artery is widely patent without any significant obstructive disease. 2. Left anterior descending: The LAD is widely patent without any significant obstructive disease. It gives a large 1st diagonal and several small diagonals that are widely patent without any significant obstructive disease. 3. Left circumflex: The left circumflex artery and the main marginal branches are widely patent without any significant obstructive angiographic disease. 4. Right coronary artery: The RCA is widely patent without any significant obstructive angiographic disease. The RCA is the dominant vessel. 5. Left ventricle: A. End-diastolic pressure 1 mmHg. B. LV gram deferred. C. No significant gradient across aortic valve on catheter pullback. 6. Opening AO pressure 80 10/29/2049 and closing AO pressure 71/57 65 mm Hg. Description of Procedure: Informed consent signed and placed in the chart. Patient transferred to produce laborer room. Prepped and draped in usual sterile fashion. 2% lidocaine injected subcutaneously in right wrist area. 22-gauge venipuncture catheter used to access the right radial artery with the Seldinger technique. 6-FR slender sheath placed in right radial artery. Nitroglycerin 200mcg, Verapamil 2.5mg, and Heparin 5000U was given intraarterial through the sheath. J wire advanced under fluoroscopy Five Malagasy JL 3 point diagnostic catheter engaged Left Main Coronary Artery. 5 Malagasy JR4 diagnostic catheter engaged Right Coronary Artery Multiple orthogonal angiogram obtained and reviewed 5 Malagasy JR4 diagnostic catheter crossed aortic valve to obtain LVEDP, LV angiogram deferred. Hemostasis was achieved by application of TR band. Assessment: Nonischemic cardiomyopathy No CAD VT status post shock AFib with RVR now in sinus rhythm Post Operative Condition: Stable No significant blood loss Disposition: Floor Plan: The patient will be monitored in the recovery area. Removal of TR band per protocol. IV fluids normal saline at 100 mL/hour for 1 L. Check renal function in a.m.. Guideline directed medical therapy for cardiomyopathy. EP consult to discuss AFib ablation. Review EMS strips to confirm rhythm was VT. Etiology of VT most likely due to low EF. EP consult for further evaluation. Consider MRI to evaluate for scar VT. Check and replace electrolytes to keep K greater than 4 and Mg greater than 2. The above findings were discussed with the referring physician. Continue aggressive medical therapy and risk factor modification. Further recommendations and management per primary cardiology team.
[2025-04-16] MEDS: SODIUM CHLORIDE 0.9% IV 1,000 ML 100 ML IV CONT (12:15)
--- NOTE | 2025-04-16 12:47 | P.PNIM_ITS ---
Progress Note: A&P Assessment and Plan (1) Acute hypoxic respiratory failure: Code(s): J96.01 - Acute respiratory failure with hypoxia Status: Acute Assessment and Plan: Acute Respiratory failure secondary to pulmonary edema from V-tach and cardiomyopathy pt weaned off oxygen cardiology on board pt going for heart cath continue oral lasix watch daily weights and bmp (2) V tach: Code(s): I47.20 - Ventricular tachycardia, unspecified Status: Acute Assessment and Plan: Patient presented with an episode of V-tach in patient with history of atrial flutter RVR and on flecainide diltiazem metoprolol and Eliquis Negative stress test 2 weeks ago Elevated troponin with no ST elevation on EKG Patient seen by Cardiology and case discussed with Dr. Graf Planned to get echocardiogram today and cardiac catheterization on Wednesday Continue heparin drip, metoprolol, aspirin Diuresis Hold statin due to elevated LFTs at this time. Telemetry monitoring If episodes of V-tach or a flutter reoccurs patient will be started on amiodarone infusion. Flecainide has been discontinued no further VT today planned heart cath today echo shows - left ventricular chamber dimension is moderately enlarged. 3. Left ventricular systolic function is severely globally reduced, estimated at 30-35. 4. There is mild concentric increased left ventricular wall thickness. 5. The left ventricular diastolic function is grade III diastolic dysfunction. 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 Subjective Date/time seen: 04/16/25 12:47 Interval history: 54-year-old male with a past medical history type 2 diabetes mellitus, paroxysmal atrial flutter, essential hypertension, BPH, obstructive sleep apnea who presented to the ER via EMS from home after near syncopal event. 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 He was driving about 5 miles an hour at the time when he became dizzy lightheaded and diaphoretic. pt admitted with Acute Respiratory failure secondary to pulmonary edema from V- tach and cardiomyopathy s/p BiPAP now on RA pt going down for heart cath today pmh sleep apnea, dm and htn Review of Systems Review of Systems: anxious appearing Exam Narrative: General: anxious appearing no acute distress on RA Lungs/Chest: No crackles or wheezing. Cardiac: RRR. Normal S1 S2. No murmurs Circulation: Pedal pulses are intact and symmetrical. Abdomen: Normal bowel sounds.Obese. Soft. NT. ND. Extremities: No clubbing, cyanosis or edema. Warm : Lee in place Neurologic: Follows commands. Moves all 4 extremities PERRL AO x3 Skin: No Rash, several tattoos on the skin Objective Data Vital Signs Vital Signs: Vital Signs - 24 hr 04/15/25 14:00 04/15/25 16:00 04/15/25 16:00 Temperature 36.6 C Pulse Rate 68 66 73 Pulse Rate [Bilateral Pedal (Dorsalis Pedis) Palpation] Respiratory Rate 20 Blood Pressure 111/64 Pulse Oximetry 97 Oxygen Delivery 04/15/25 18:00 04/15/25 20:00 04/15/25 20:00 Temperature 36.7 C Pulse Rate 71 70 70 Pulse Rate [Bilateral Pedal (Dorsalis Pedis) Palpation] Respiratory Rate 20 Blood Pressure 100/56 L Pulse Oximetry 92 Oxygen Delivery 04/15/25 20:39 04/15/25 20:54 04/15/25 22:00 Temperature Pulse Rate 70 67 69 Pulse Rate [Bilateral Pedal (Dorsalis Pedis) Palpation] Respiratory Rate 20 Blood Pressure Pulse Oximetry 92 Oxygen Delivery Room Air 04/15/25 23:00 04/15/25 23:44 04/16/25 00:00 Temperature 36.7 C Pulse Rate 61 61 Pulse Rate [Bilateral Pedal (Dorsalis Pedis) Palpation] Respiratory Rate 20 20 Blood Pressure 115/61 Pulse Oximetry 96 96 Oxygen Delivery Autopap Room Air 04/16/25 00:00 04/16/25 02:00 04/16/25 03:54 Temperature 36.8 C Pulse Rate 64 80 66 Pulse Rate [Bilateral Pedal (Dorsalis Pedis) Palpation] Respiratory Rate 20 Blood Pressure 136/69 Pulse Oximetry 96 Oxygen Delivery 04/16/25 04:00 04/16/25 04:00 04/16/25 06:00 Temperature Pulse Rate 66 60 58 L Pulse Rate [Bilateral Pedal (Dorsalis Pedis) Palpation] Respiratory Rate 20 Blood Pressure Pulse Oximetry 96 Oxygen Delivery Room Air 04/16/25 07:40 04/16/25 08:00 04/16/25 08:18 Temperature 36.6 C Pulse Rate 67 63 63 Pulse Rate [Bilateral Pedal (Dorsalis Pedis) Palpation] Respiratory Rate 18 Blood Pressure 107/53 L Pulse Oximetry 94 Oxygen Delivery 04/16/25 10:00 04/16/25 11:45 04/16/25 11:45 Temperature Pulse Rate 65 62 Pulse Rate [Bilateral Pedal (Dorsalis Pedis) Palpation] 62 Respiratory Rate 15 Blood Pressure 107/69 Pulse Oximetry 94 Oxygen Delivery Room Air 04/16/25 12:00 04/16/25 12:00 04/16/25 12:15 Temperature Pulse Rate 65 Pulse Rate [Bilateral Pedal (Dorsalis Pedis) Palpation] 65 62 Respiratory Rate 16 Blood Pressure 106/50 L Pulse Oximetry 93 Oxygen Delivery Room Air 04/16/25 12:15 04/16/25 12:30 04/16/25 12:30 Temperature Pulse Rate 62 60 Pulse Rate [Bilateral Pedal (Dorsalis Pedis) Palpation] 60 Respiratory Rate 15 16 Blood Pressure 113/73 132/90 Pulse Oximetry 95 96 Oxygen Delivery Room Air Room Air Intake/Output Intake/Output: Intake & Output 04/13/25 04/14/25 04/15/25 04/16/25 23:59 23:59 23:59 23:59 Intake Total 23.2 1228.5 1668.2 725.6 Output Total 3950 2045 1090 Balance 23.2 -2721.5 -376.8 -364.4 Meds/Results Medications: Active Medications Generic Name Dose Route Start Last Admin Trade Name Freq PRN Reason Stop Dose Admin Acetaminophen 325 mg 04/15/25 09:08 04/16/25 08:19 Acetaminophen 325 Mg Tablet PO 325 mg Q6H PRN Administration Mild Pain (1-3) or Fever Aspirin 81 mg 04/14/25 09:00 04/16/25 08:19 Aspirin 81 Mg Enteric Tablet PO 81 mg QAM GABBY Administration Dextrose 12.5 gm 04/14/25 08:16 Dextrose 50% 25 Gm/50 Ml Syringe IV PUSH PRN PRN Hypoglycemia Protocol Empagliflozin 10 mg 04/14/25 09:00 04/14/25 09:04 Empagliflozin 10 Mg Tablet BY MOUTH Not Given DAILY GABBY Furosemide 20 mg 04/15/25 09:00 04/16/25 08:18 Furosemide 20 Mg Tablet PO 20 mg DAILY GABBY Administration Glucagon 1 mg 04/14/25 08:16 Glucagon For Inj 1 Mg Vial IM PRN PRN Hypoglycemia Protocol Glucose 15 gm 04/14/25 08:16 Glucose Oral Gel 15 Gm Of Glucse In 37.5 Gm Tube PO PRN PRN Hypoglycemia Protocol Heparin Sodium (Porcine) 4,000 units 04/13/25 19:49 04/15/25 06:34 Heparin Sodium 5,000 Units/Ml Vial IV PUSH 4,000 units PRN PRN Administration aPTT less than 55 seconds Heparin Sodium (Porcine) 4,000 units 04/13/25 19:49 04/14/25 18:46 Heparin Sodium 5,000 Units/Ml Vial IV PUSH 4,000 units PRN PRN Administration aPTT 55 - 70 seconds Heparin Sodium/Dextrose 25,000 units in 250 mls @ 24 mls/hr 04/13/25 19:50 04/16/25 03:47 Heparin Sodium/D5w 100 Units/Ml IV CONT 2,400 units/hr .[id number] GABBY 24 mls/hr Titration Protocol 2,400 UNITS/HR Dextrose 1,000 mls @ 100 mls/hr 04/14/25 08:16 Dextrose 5% 1,000 Ml IVPB PRN PRN Hypoglycemia Protocol Sodium Chloride 1,000 mls @ 100 mls/hr 04/16/25 11:47 04/16/25 12:15 Normal Saline Iv IV CONT 04/16/25 21:46 100 mls/hr .Q10H ONE Administration Insulin Aspart 3 - 6 units 04/14/25 12:00 04/16/25 11:26 Insulin Aspart (*Bkc) 100 Units/Ml SUB-Q Not Given Q6HR [facility] Protocol Metformin HCl 500 mg 04/14/25 09:00 04/14/25 09:04 Metformin Hcl 500 Mg Tablet PO Not Given BID GABBY Metoprolol Tartrate 25 mg 04/13/25 21:00 04/16/25 08:18 Metoprolol Tartrate 25 Mg Tablet PO 25 mg Q12HR GABBY Administration Mupirocin 1 applic 04/14/25 09:00 04/16/25 10:33 Mupirocin 2% Oint 22 Gm Tube EACH NARE 04/18/25 21:01 1 applic Q12HR GABBY Administration Sacubitril/Valsartan 1 tab 04/14/25 21:00 04/16/25 08:18 Sacubitril/Valsartan 24-26 Mg Tablet PO 1 tab Q12HR GABBY Administration Sertraline HCl 50 mg 04/14/25 09:00 04/16/25 08:18 Sertraline Hcl 50 Mg Tablet PO 50 mg DAILY GABBY Administration Spironolactone 12.5 mg 04/15/25 09:00 04/16/25 08:18 Spironolactone 12.5 Mg Tablet PO 12.5 mg QAM GABBY Administration Tamsulosin HCl 0.4 mg 04/14/25 09:00 04/16/25 08:18 Tamsulosin Hcl 0.4 Mg Capsule PO 0.4 mg DAILY GABBY Administration Radiology Results: ITS Impressions Chest CTA 04/14/25 07:04 IMPRESSION: 1. Mild bilateral pulmonary edema with very small bilateral pleural effusions. Chest X-Ray 04/14/25 07:25 IMPRESSION: 1. Opacities in bilateral mid and lower lung zones most consistent with mild pulmonary edema. Labs Labs: Laboratory Results - last 24 hr 04/15/25 04/15/25 04/15/25 12:23 15:33 18:31 WBC RBC Hgb Hct MCV MCH MCHC RDW Plt Count MPV Immature Gran % (Auto) Neut % (Auto) Lymph % (Auto) [place] % (Auto) Eos % (Auto) Baso % (Auto) Lymph # (Auto) [place] # (Auto) Eos # (Auto) Baso # (Auto) Abs Immat Gran (auto) Absolute Neuts (auto) Absolute Nucleated RBC Nucleated RBC % APTT 101.9 H 83.7 H Sodium Potassium Chloride Carbon Dioxide Anion Gap BUN Creatinine Estim Creat Clear Calc Estimated GFR Glucose POC Capillary Glucose 188 H Calcium Phosphorus Magnesium Total Bilirubin AST ALT Alkaline Phosphatase Total Protein Albumin 04/15/25 04/16/25 04/16/25 19:48 03:47 07:47 WBC 9.0 RBC 5.16 Hgb 15.5 Hct 47.1 MCV 91.3 MCH 30.0 MCHC 32.9 RDW 13.2 Plt Count 182 MPV 11.7 H Immature Gran % (Auto) 0.2 Neut % (Auto) 42.9 L Lymph % (Auto) 42.6 [place] % (Auto) 10.5 H Eos % (Auto) 3.0 Baso % (Auto) 0.8 Lymph # (Auto) 3.82 H [place] # (Auto) 0.9 H Eos # (Auto) 0.3 Baso # (Auto) 0.1 Abs Immat Gran (auto) 0.02 Absolute Neuts (auto) 3.9 Absolute Nucleated RBC 0.000 Nucleated RBC % 0.0 APTT 76.5 H Sodium 134 L Potassium 4.0 Chloride 102 Carbon Dioxide 23 Anion Gap 9 BUN 17 Creatinine 0.87 Estim Creat Clear Calc 115 Estimated GFR > 60 Glucose 165 H POC Capillary Glucose 198 H 181 H Calcium 9.1 Phosphorus 3.5 Magnesium 2.1 Total Bilirubin 0.9 AST 79 H ALT 76 H Alkaline Phosphatase 43 Total Protein 7.7 Albumin 4.2
--- NOTE | 2025-04-16 13:49 | P.DS_ITS ---
DS: Admitting Diagnosis Discharge Date 04/16/2025 Admitting Diagnosis shortness of breath DS: Discharge Diagnosis Discharge Diagnosis (1) Acute hypoxic respiratory failure: Code(s): J96.01 - Acute respiratory failure with hypoxia Status: Acute Assessment and Plan: Acute Respiratory failure secondary to pulmonary edema from V-tach and cardiomyopathy pt weaned off oxygen cardiology on board pt going for heart cath which was nl echo shows ef of 30% ok to dc pt on LV as per cards (2) V tach: Code(s): I47.20 - Ventricular tachycardia, unspecified Status: Acute Assessment and Plan: Patient presented with an episode of V-tach in patient with history of atrial flutter RVR and on flecainide diltiazem metoprolol and Eliquis Negative stress test 2 weeks ago Elevated troponin with no ST elevation on EKG Patient seen by Cardiology and case discussed with Dr. Graf Planned to get echocardiogram today and cardiac catheterization on Wednesday Continue heparin drip, metoprolol, aspirin Diuresis Hold statin due to elevated LFTs at this time. Telemetry monitoring If episodes of V-tach or a flutter reoccurs patient will be started on amiodarone infusion. Flecainide has been discontinued no further VT today planned heart cath today heart cath is clear echo shows - left ventricular chamber dimension is moderately enlarged. 3. Left ventricular systolic function is severely globally reduced, estimated at 30-35. 4. There is mild concentric increased left ventricular wall thickness. 5. The left ventricular diastolic function is grade III diastolic dysfunction. ok to dc with LV and bb, spironolactone entresto and lasix (3) Essential hypertension: Code(s): I10 - Essential (primary) hypertension Status: Acute Assessment and Plan: metoprolol on board (4) Acute cardiogenic pulmonary edema: Code(s): I50.1 - Left ventricular failure, unspecified Status: Acute Assessment and Plan: lasix spironolactone and Entresto started (5) Paroxysmal atrial flutter: Code(s): I48.92 - Unspecified atrial flutter Status: Acute Assessment and Plan: continue to watch on tele ok to dc today (6) Diabetes mellitus: Qualifiers: Diabetes mellitus complication status: with hyperglycemia Diabetes mellitus nursing home insulin use: without watermaster use Diabetes mellitus type: type 2 Qualified Code(s): E11.65 - Type 2 diabetes mellitus with hyperglycemia Code(s): E11.9 - Type 2 diabetes mellitus without complications Status: Acute Assessment and Plan: continue metformin and farxiga (7) LUIS (obstructive sleep apnea): Code(s): G47.33 - Obstructive sleep apnea (adult) (pediatric) Status: Acute Assessment and Plan: CPAP ordered at night. DS: Summary Hospital Course Hospital Course: Patient presented with an episode of V-tach in patient with history of atrial flutter RVR and on flecainide diltiazem metoprolol and Eliquis Negative stress test 2 weeks ago Elevated troponin with no ST elevation on EKG Patient seen by Cardiology and case discussed with Dr. Graf Planned to get echocardiogram today and cardiac catheterization on Wednesday Continue heparin drip, metoprolol, aspirin Diuresis Hold statin due to elevated LFTs at this time. Telemetry monitoring If episodes of V-tach or a flutter reoccurs patient will be started on amiodarone infusion. Flecainide has been discontinued no further VT today planned heart cath today heart cath is clear echo shows - left ventricular chamber dimension is moderately enlarged. 3. Left ventricular systolic function is severely globally reduced, estimated at 30-35. 4. There is mild concentric increased left ventricular wall thickness. 5. The left ventricular diastolic function is grade III diastolic dysfunction. ok to dc with LV and bb, spironolactone entresto and lasix Time Spent with Patient Time attestation: Total time spent providing and/or coordinating discharge services:55 mins on day of dc Exam Narrative: General: anxious appearing no acute distress on RA Lungs/Chest: No crackles or wheezing. Cardiac: RRR. Normal S1 S2. No murmurs Circulation: Pedal pulses are intact and symmetrical. Abdomen: Normal bowel sounds.Obese. Soft. NT. ND. Extremities: No clubbing, cyanosis or edema. Warm : Lee in place Neurologic: Follows commands. Moves all 4 extremities PERRL AO x3 Skin: No Rash, several tattoos on the skin Const: Other: Morbidly obese, no acute distress, appears older than stated age HENMT: Other: Mucous membranes are moist, no oral pharyngeal erythema, crowded posterior oropharynx, head is normocephalic atraumatic Eyes: Other: Pupils are equal and reactive, no scleral icterus, no conjunctival pallor Neck: Other: Large neck circumference, no JVD Resp: Other: Clear to auscultation bilaterally, no increased work of breathing Cardio: Other: Regular rate, regular rhythm, 2+ bilateral radial pedal pulses GI: Other: Obese, soft, nontender, no organomegaly Skin: Other: No jaundice, no pallor Neuro: Other: Alert oriented, speech is clear, no facial asymmetry, extraocular movements intact Extrem: Other: No clubbing, cyanosis or edema, moves all extremities equally Psych: Other: Mildly anxious, otherwise pleasant and cooperative, judgment and insight intact DS: Data Data Completed and Pending Labs on day of discharge: Labs from last 24 hours 04/16/25 04/16/25 04/15/25 07:47 03:47 19:48 WBC 9.0 RBC 5.16 Hgb 15.5 Hct 47.1 MCV 91.3 MCH 30.0 MCHC 32.9 RDW 13.2 Plt Count 182 MPV 11.7 H Immature Gran % (Auto) 0.2 Neut % (Auto) 42.9 L Lymph % (Auto) 42.6 [place] % (Auto) 10.5 H Eos % (Auto) 3.0 Baso % (Auto) 0.8 Lymph # (Auto) 3.82 H [place] # (Auto) 0.9 H Eos # (Auto) 0.3 Baso # (Auto) 0.1 Abs Immat Gran (auto) 0.02 Absolute Neuts (auto) 3.9 Absolute Nucleated RBC 0.000 Nucleated RBC % 0.0 APTT 76.5 H Sodium 134 L Potassium 4.0 Chloride 102 Carbon Dioxide 23 Anion Gap 9 BUN 17 Creatinine 0.87 Estim Creat Clear Calc 115 Estimated GFR > 60 Glucose 165 H POC Capillary Glucose 181 H 198 H Calcium 9.1 Phosphorus 3.5 Magnesium 2.1 Total Bilirubin 0.9 AST 79 H ALT 76 H Alkaline Phosphatase 43 Total Protein 7.7 Albumin 4.2 04/15/25 04/15/25 18:31 15:33 WBC RBC Hgb Hct MCV MCH MCHC RDW Plt Count MPV Immature Gran % (Auto) Neut % (Auto) Lymph % (Auto) [place] % (Auto) Eos % (Auto) Baso % (Auto) Lymph # (Auto) [place] # (Auto) Eos # (Auto) Baso # (Auto) Abs Immat Gran (auto) Absolute Neuts (auto) Absolute Nucleated RBC Nucleated RBC % APTT 83.7 H Sodium Potassium Chloride Carbon Dioxide Anion Gap BUN Creatinine Estim Creat Clear Calc Estimated GFR Glucose POC Capillary Glucose 188 H Calcium Phosphorus Magnesium Total Bilirubin AST ALT Alkaline Phosphatase Total Protein Albumin Discharge Plan Discharge Attending physician on discharge: Lara Casper Consulting providers: Brent Larsen; Florentino Cary; Tory Barry Discharging Clinician: Lara Casper Anticipated Discharge Date/Time: 04/16/25 13:50 Patient Disposition: Home Activity: as tolerated Diet: diabetic Discharge Instructions: Will need Life Vest or ICD upon discharge cardiology stopped flecainide in hospital possibly restart in 1 weeks time [facility] [address] [place] [address] DISCHARGE INSTRUCTIONS - POST RADIAL CATH Activity 1. No driving for 24 hours. 2. No lifting more than 5 lb with affected arm for 1 week. 3. May shower ( tomorrow) but no excessive soaking of affected hand/wrist (such as washing dishes), swimming pool or hot tub for 5 days. Wound Care 1. May remove arm board in the morning. 2. May remove gauze dressing in the morning and put Band-Aid over affected radial site. Keep site covered for 3 days. 3. Observe for redness, drainage, swelling or bleeding. Medications DO NOT STOP YOUR MEDICATIONS ONLY YOUR SAUSAGE CUTTER CAN STOP THE FOLLOWING MEDICATIONS - PLEASE CALL THE OFFI CE WITH QUESTIONS. *Metoprolol tartrate or succinate Important Reminders 1. Keep your stent card in your wallet at all times 2. Follow a heart healthy diet paying extra attention to cholesterol and fats. 3. Stay hydrated. 4. If you have chest pain unrelieved by rest or nitroglycerin (if prescribed) call 911 immediately. 5. If you miss one dose of Brilinta (if prescribed) take a tablet at the next time due. If you miss 2 doses take a tablet when you remember and resume at the next time due. *For any other questions please call the office at [phone]. Office hours are 8AM 4:30PM Wednesday through Wednesday. Patient Instructions: Heart Catheterization (DC) Patient Language: Bangladeshi Stand Alone Forms: General Discharge Information Follow-up/Referrals: Charissa Noonan APRN [Primary Care Provider] - (in 3-4 weeks time ) Brent Larsen DO [Physician] - (1 week ) Discharge Medications: New acetaminophen 325 mg Tablet 325 mg PO Q6H PRN (Reason: Mild Pain (1-3) Or Fever) Qty: 30 0RF furosemide 20 mg Tablet 20 mg PO DAILY Qty: 30 0RF metoprolol tartrate 25 mg Tablet 25 mg PO Q12HR Qty: 60 0RF Entresto 24-26 mg Tablet 1 tab PO Q12HR Qty: 60 0RF spironolactone 25 mg tablet 12.5 mg PO DAILY Qty: 30 1RF Continued metformin 500 mg tablet 500 mg PO BID Qty: 180 1RF Eliquis 5 mg tablet See Rx Instructions .ROUTE .COMPLEX Qty: 60 5RF Dose Instruction: TAKE 1 TABLET BY MOUTH EVERY 12 HOURS Rx Instructions: TAKE 1 TABLET BY MOUTH EVERY 12 HOURS tamsulosin 0.4 mg capsule 0.4 mg PO DAILY Qty: 90 1RF sertraline 50 mg tablet 50 mg PO DAILY Qty: 90 0RF dapagliflozin propanediol [Farxiga] 10 mg tablet 10 mg PO DAILY Qty: 90 1RF Ozempic 1 mg/dose (4 mg/3 mL) pen injector 1 mg subcut WEEKLY Qty: 3 5RF Ozempic 0.25 mg or 0.5 mg (2 mg/3 mL) pen injector 0.25 mg subcut WEEKLY Qty: 3 0RF Rx Instructions: for 4 weeks, then 0.5 mg weekly for 4 weeks. Discontinued diltiazem HCl 30 mg tablet 30 mg PO BID Qty: 60 3RF metoprolol succinate 100 mg tablet extended release 24 hr 100 mg PO QAM flecainide 100 mg tablet 100 mg PO Q12H Qty: 60 5RF Date of admission: 04/13/25 21:26 Primary Care Provider: Charissa Noonan Admitting Provider: Crys Thakkar Attending physician on admission: Crys Thakkar Condition: Stable
[2025-04-16 16:54] LABS: Glucose Point of Care 195 mg/dl (65-105)
--- NOTE | 2025-04-16 17:32 | PCCCNOTE ---
Provided a copay savings coupon for Entresto as requested by the pt's nurse.-gwyn
[2025-04-16] MEDS: metFORMIN HCL 500 MG TABLET PO ×2 (17:39→17:48)
== END 2025-04-16 18:12 | disposition home or self-care (01) | DRG 286 ==
LOC: ANHED 19:55 → ANHICU 22:22 → ANHIMU 04-14 14:24
PROVIDERS: General Practice; Internal Medicine; Internal Medicine Cardiovascular Disease; Internal Medicine Interventional Cardiology; Admitting Provider Internal Medicine; Emergency Provider Emergency Medicine; PCP Nurse Practitioner Family; Visit Provider Family Medicine
PROC: 4A023N7 Measurement of Cardiac Sampling and Pressure, Left Heart, Percutaneous Approach (ICD-10-PCS; CPT 93452; principal; 2025-04-16 11:00)
DX: I47.20 Ventricular tachycardia, unspecified (principal); I50.43 Acute on chronic combined systolic (congestive) and diastolic (congestive) heart failure; J96.01 Acute respiratory failure with hypoxia; N17.9 Acute kidney failure, unspecified; Z68.41 Body mass index [BMI] 40.0-44.9, adult; I42.8 Other cardiomyopathies; I11.0 Hypertensive heart disease with heart failure; E11.65 Type 2 diabetes mellitus with hyperglycemia; I48.0 Paroxysmal atrial fibrillation; I48.92 Unspecified atrial flutter; N40.0 Benign prostatic hyperplasia without lower urinary tract symptoms; M19.90 Unspecified osteoarthritis, unspecified site; G47.33 Obstructive sleep apnea (adult) (pediatric); K76.0 Fatty (change of) liver, not elsewhere classified; Z87.891 Personal history of nicotine dependence; E66.01 Morbid (severe) obesity due to excess calories
CPT/HCPCS: 36415; 36600; 70450; 71045; 71046; 71275; 80048; 80053; 81001; 82375; 82805; 82948; 83036; 83050; 83735; 83880; 84100; 84484; 85018; 85025; 85027; 85380; 85610; 85730; 87641; 93005; 93458; 94002; 96360; 96374; 96375; 99284; 99285; A9270; C1769; C1887; C1894; C8929; J1644; J1938; J2003; J2250; J2305; J3010; J7030; J7040; Q9957; Q9967

== ENCOUNTER 2025-06-19 14:26 | Outpatient (CLI) | payer OTHER, SELFPAY ==
--- NOTE | 2025-06-19 14:55 | ECHO_ITS ---
Patient Info Name: Roque Grider Age: 55 years : 1970 Gender: Male Ht: 69 in Wt: 281 lbs BSA: 2.55 m2 HR: 72 bpm BP: 132 / 91 mmHg Technical Quality: Fair Exam Date: 06/19/2025 3:18 PM Patient Status: O Admit Date: 06/19/2025 Exam Type: CA echo doppler color flow Complete two-dimensional, color flow and Doppler transthoracic echocardiogram is performed. Offset Printing Operator: Pennie Perez Attending Provider: Brent Larsen DO Summary 1. Complete two-dimensional, color flow and Doppler transthoracic echocardiogram is performed. 2. Left ventricular chamber dimension is normal. 3. Left ventricular systolic function is preserved, estimated at 50-55. 4. There is mild concentric increased left ventricular wall thickness. 5. The left ventricular diastolic function is grade I diastolic dysfunction. 6. E/e' 7 is not elevated. 7. Right ventricular chamber dimension is mildly enlarged. 8. Left atrial chamber dimension is mildly enlarged. 9. No pulmonary hypertension, estimated pulmonary arterial systolic pressure is 22 mmHg. Left Ventricle E/e' 7 is not elevated. Left ventricular chamber dimension is normal. Left ventricular systolic function is preserved, estimated at 50-55. There is mild concentric increased left ventricular wall thickness. The left ventricular diastolic function is grade I diastolic dysfunction. Right Ventricle Right ventricular chamber dimension is mildly enlarged. Right ventricular systolic function is normal and with normal TAPSE 2.4 cm. Left Atria Left atrial chamber dimension is mildly enlarged. Right Atria Right atrial chamber dimension is normal. Aortic Valve The aortic valve is trileaflet. There is no aortic valve stenosis. There is no aortic valve regurgitation. Pulmonic Valve There is no pulmonic regurgitation. Mitral Valve There is no mitral valve stenosis. There is no mitral valve regurgitation. Tricuspid Valve There is no tricuspid valve regurgitation. No pulmonary hypertension, estimated pulmonary arterial systolic pressure is 22 mmHg. Pericardium/Pleural There is no pericardial effusion. Inferior Vena Cava Normal inferior vena cava with >50% collapse upon inspiration consistent with normal right atrial pressure, 5 mmHg. Aorta The aortic root size at the sinus of Valsalva is normal. Left Ventricular Outflow Tract Name Value Normal LVOT 2D LVOT Diameter 2.2 cm LVOT Doppler LVOT Peak Velocity 102 cm/s LVOT Peak Gradient 4 mmHg LVOT Mean Gradient 3 mmHg LVOT VTI 22 cm LVOT VTI/AV VTI Ratio 0.8 LVOT Stroke Volume 86 ml LVOT CO 18.2 l/min LVOT CI 7.1 l/min/m2 Pulmonic Valve Name Value Normal PV Doppler PV Peak Velocity 123 cm/s PV Peak Gradient 6 mmHg Mitral Valve Name Value Normal MV Diastolic Function MV E Peak Velocity 66 cm/s MV A Peak Velocity 78 cm/s MV E/A 0.9 MV Decel Time (PW) 191 ms MV Annular TDI MV E/e' (Septal) 9.6 MV E/e' (Lateral) 6.0 MV E/e' (Average) 7.8 Tricuspid Valve Name Value Normal TV Regurgitation Doppler TR Peak Velocity 207 cm/s TR Peak Gradient 17 mmHg Estimated PAP/RSVP RA Pressure 5 mmHg <=5 PA Systolic Pressure 22 mmHg <36 RV Systolic Pressure 22 mmHg <36 TV Annular TDI TV Lateral Shelbie s' Velocity 11.2 cm/s >=9.5 Aorta Name Value Normal Ascending Aorta Ao Root Diameter (MM) 3.4 cm Ao Root Diam Index (MM) 1.3 cm/m2 Aortic Valve Name Value Normal AV Doppler AV Peak Velocity 137 cm/s AV Peak Gradient 7 mmHg AV Mean Gradient 5 mmHg AV VTI 26 cm AV Area (Cont Eq VTI) 3.3 cm2 >=3.0 AV Area (Cont Eq Papo) 2.9 cm2 AV DI (Papo) 0.75 AV Regurgitation 2D LVOT Area 3.9 cm2 Ventricles Name Value Normal LV Dimensions 2D/MM IVS Diastolic Thickness (2D) 1.1 cm 0.6-1.0 LVID Diastole (2D) 5.1 cm 4.2-5.8 LVIW Diastolic Thickness (2D) 1.2 cm 0.6-1.0 LVID Systole (2D) 3.6 cm 2.5-4.0 LVOT Diameter 2.2 cm LV Mass (2D Cubed) 220.88 g 88.00-224.00 LV Mass Index (2D Cubed) 87 g/m2 49-115 Relative Wall Thickness (2D) 0.45 <=0.42 LV Fractional Shortening/Ejection Fraction 2D/MM LV Fractional Shortening (2D) 30 % 25-43 LV EF (2D Teichholz) 56 % LV Diastolic Volume (4C MOD) 157 ml LV EF (4C MOD) 55 % LV Diastolic Volume (2C MOD) 195 ml LV EF (2C MOD) 49 % LV Diastolic Volume (BP MOD) 178 ml 62-150 LV Diastolic Volume Index (BP MOD) 70 ml/m2 34-74 LV Systolic Volume (BP MOD) 85 ml 21-61 LV Systolic Volume Index (BP MOD) 33 ml/m2 11-31 LV EF (BP MOD) 52 % 52-72 LV Diastolic Length (4C) 9.3 cm LV Systolic Length (4C) 7.8 cm LV Stroke Volume (4C MOD) 87 ml RV Dimensions 2D/MM RVID Diastole (2D) 4.5 cm 2.1-3.5 Atria Name Value Normal LA Dimensions LA Dimension (MM) 4.6 cm 3.0-4.0 LA Volume (4C A-L) 80 ml RA Dimensions RA Systolic Major [place] Length (4C) 4.7 cm 2.1-2.7 RA Area (4C) 16.3 cm2 <=18.0 Report Signatures
== END 2025-06-19 14:27 | disposition home or self-care (01) ==
LOC: ANHCARD 14:29
PROVIDERS: PCP Nurse Practitioner Family; Visit Provider Internal Medicine Cardiovascular Disease
DX: R93.1 Abnormal findings on diagnostic imaging of heart and coronary circulation (principal); I51.9 Heart disease, unspecified
CPT/HCPCS: 93306